=== PATIENT | female | born 1940 | race Caucasian/White ===

== ENCOUNTER → 2020-04-26 14:03 | Outpatient (BNVA) | payer MEDICARE, SELFPAY | PROVIDERS: PCP Internal Medicine; Referring Provider Internal Medicine; Visit Provider Nurse Practitioner Family | DX: R55 Syncope and collapse (principal); I44.7 Left bundle-branch block, unspecified; I10 Essential (primary) hypertension | CPT/HCPCS: 99214; Q3014 ==

== ENCOUNTER → 2020-05-19 10:10 | Outpatient (REF) | payer MEDICARE, SELFPAY ==
--- NOTE | 2020-05-19 10:20 | ECG_ITS ---
Hook-up date: 2020-05-19 10:44:00 Duration: 47:59:00 Test Indications: UNSPEC LBBB, SYNCOPE, HTN Medications: [id number] QRS complexes 8 Ventricular ectopics which represent <1 % of total QRS comp. 87 Supraventricular ectopics which represent <1 % of total QRS comp. * Paced QRS complexs which represent % of total QRS comp. VENTRICULAR ECTOPY 8 Isolated 0 Bigeminal Cycles 0 Couplets 0 Runs 0 Beats in Runs * Beats LONGEST at * BPM at :: -- * Beats FASTEST at * BPM at :: -- SUPRAVENTRICULAR ECTOPY 69 Isolated 2 Couplets 3 Runs 14 Beats in Runs 6 Beats LONGEST at 101 BPM at 23:37:23 2020-05-19 3 Beats FASTEST at 180 BPM at 08:39:15 2020-05-20 HEART RATES 46 MIN at 06:00:17 2020-05-21 68 AVG 138 MAX at 08:34:17 2020-05-20 LONGEST RR 1.4880 secs at 02:26:35 2020-05-20 S-T LEVELS Channel 1 - 128 mm at 10:44:00 2020-05-19 - 128 mm at 10:44:00 2020-05-19 Channel 2 - 128 mm at 10:44:00 2020-05-19 - 128 mm at 10:44:00 2020-05-19 Channel 3 - 128 mm at 03:00:31 -- - 128 mm at 03:00:31 Underlying rhythm is sinus; Average ventricular rate 68/min; range 46-138/min; Rare supraventricular ectopy with few brief runs; longest 6 beats; Rare and isolated ventricular ectopy; Patient did not report any symptoms in the diary Referred By: Dorota Joseph Overread By: KYREE ZIMMER
== END ==
LOC: HO.CARD 10:10
PROVIDERS: PCP Internal Medicine; Visit Provider Nurse Practitioner Family
DX: I10 Essential (primary) hypertension (principal); I44.7 Left bundle-branch block, unspecified; R55 Syncope and collapse
CPT/HCPCS: 93225; 93226

== ENCOUNTER 2020-05-23 08:53 | Outpatient (REF) | payer MEDICARE, SELFPAY ==
--- NOTE | 2020-05-23 08:58 | XR_ITS ---
EXAMINATION: XR HIP, RIGHT CLINICAL INFORMATION: Pain right hip. COMPARISON: Right hip 09/03/2019. TECHNIQUE: 2 views of the right hip. FINDINGS: There is a total right hip prosthesis with the prosthetic components in satisfactory alignment. The left hip joint space is maintained. SI joints are symmetrical. No visible bony abnormality. The soft tissues are normal. XR/XR hip RT w PEL1V IMPRESSION: Total right hip prosthesis in satisfactory alignment. No change from previous study 09/03/2019. There is no suspicion for prosthetic loosening either.
== END 2020-05-23 08:54 | disposition home or self-care (01) ==
LOC: HO.HOSX 08:53
PROVIDERS: PCP Internal Medicine; Referring Provider Internal Medicine; Visit Provider Orthopaedic Surgery
DX: M25.561 Pain in right knee (principal); M25.551 Pain in right hip; Z96.641 Presence of right artificial hip joint
CPT/HCPCS: 73502; 99212

== ENCOUNTER → 2020-06-05 09:46 | Outpatient (BNVA) | payer MEDICARE, SELFPAY | PROVIDERS: PCP Internal Medicine; Referring Provider Internal Medicine; Visit Provider Nurse Practitioner Family | DX: R55 Syncope and collapse (principal); I10 Essential (primary) hypertension; I44.7 Left bundle-branch block, unspecified; Z79.899 Other long term (current) drug therapy | CPT/HCPCS: 99212 ==

== ENCOUNTER → 2020-07-17 12:52 | Outpatient (REF) | payer MEDICARE, SELFPAY ==
--- NOTE | 2020-07-17 12:55 | HM_ITS ---
TEST PERFORMED: Cardiac event monitor. ENROLLMENT PERIOD: 07/17/2020 to 08/02/2020 - 16 days. REQUESTING PHYSICIAN: Dorota Joseph NP. INDICATION: Left bundle-branch block. FINDINGS: In the above monitoring period, the underlying rhythm was sinus, the base rate was 90/min. There were no episodes of tachycardia or bradycardia or any other arrhythmic findings during this time. Overall, the study is unremarkable. Rufus Mayfield MD HS/MODHeather / [id number]
== END ==
LOC: HO.CARD 12:52
PROVIDERS: Visit Provider Nurse Practitioner Family
DX: I44.7 Left bundle-branch block, unspecified (principal); R55 Syncope and collapse
CPT/HCPCS: 93270

== ENCOUNTER → 2020-08-28 09:26 | Outpatient (BNVA) | payer MEDICARE, SELFPAY | PROVIDERS: PCP Internal Medicine; Visit Provider Internal Medicine Cardiovascular Disease | DX: I95.1 Orthostatic hypotension (principal); I10 Essential (primary) hypertension | CPT/HCPCS: 99212 ==

== ENCOUNTER 2020-09-12 10:40 | Outpatient (REF) | payer MEDICARE, SELFPAY ==
[2020-09-12 11:40] LABS: MANUAL DIFF FLAG NO
[2020-09-12 12:07] LABS: Basophils Absolute Auto 0.1 X10*3/uL (0.0-0.2); Basophils Percent Auto 0.8 % (0-2); Eosinophils Absolute Auto 0.1 X10*3/uL (0.0-0.4); Eosinophils Percent Auto 1.7 % (0-4); Hematocrit 40.4 % (37-47); Hemoglobin 13.1 g/dl (12.0-16.0); Imm Gran Abs Auto 0.02 X10*3/uL (0.00-0.03); Imm Gran Pct Auto 0.3 % (0.0-0.4); Lymphocytes Absolute Auto 2.2 X10*3/uL (1.2-4.9); Lymphocytes Percent Auto 34.3 % (20-40); Mean Corpuscular HGB Conc 32.4 g/dl (31.0-35.0); Mean Corpuscular Hemoglobin 29.3 pg (27.0-33.0); Mean Corpuscular Volume 90.4 fL (80-98); Monocytes Absolute Auto 0.5 X10*3/uL (0.1-1.2); Monocytes Percent Auto 7.4 % (2-11); Neutrophils Absolute Auto 3.6 X10*3/uL (2.0-8.3); Neutrophils Percent Auto 55.5 % (45-73); Platelet Count 302 X10*3/uL (160-400); Red Blood Count 4.47 X10*6/uL (4.20-5.50); Red Cell Distribution Width 12.9 % (11.0-16.0); White Blood Count 6.5 X10*3/uL (4.8-10.8)
[2020-09-12 13:54] LABS: Estimated Average Glucose 108 mg/dL; Hemoglobin A1c % 5.4 %
[2020-09-12 14:08] LABS: Alanine Aminotransferase 24 U/L (0-31); Albumin Level 4.3 g/dL (3.5-5.0); Alkaline Phosphatase 76 U/L (39-117); Anion Gap 16 (12-20); Aspartate Amino Transferase 28 U/L (5-31); Bilirubin Total 0.6 mg/dL (0.0-1.0); Blood Urea Nitrogen 19 mg/dL (9-16); Calcium 9.1 mg/dL (8.4-10.2); Carbon Dioxide 24 mmol/L (22-29); Chloride 102 mmol/L (96-108); Cholesterol 164 mg/dL; Estimated Glomerular Filt Rate 53; Glucose Fasting 93 mg/dL (60-99); HDL Cholesterol 62 mg/dL; LDL Cholesterol Calculated 85 mg/dl; Potassium 4.5 mmol/L (3.3-5.1); Sodium 137 mmol/L (135-145); Total Protein 6.7 g/dL (6.5-8.0); Triglycerides 89 mg/dL
[2020-09-12 14:28] LABS: Vitamin D 25-OH Total 45.2 ng/mL (>30)
[2020-09-12 15:07] LABS: Reflex LDLD? No
== END 2020-09-12 10:41 | disposition home or self-care (01) ==
LOC: HO.LNP 10:40
PROVIDERS: Visit Provider Internal Medicine
DX: Z00.00 Encounter for general adult medical examination without abnormal findings (principal); E78.00 Pure hypercholesterolemia, unspecified; R73.03 Prediabetes; I10 Essential (primary) hypertension; E55.9 Vitamin D deficiency, unspecified
CPT/HCPCS: 80053; 80061; 82306; 83036; 84443; 85025

== ENCOUNTER 2020-09-19 10:32 | Outpatient (REF) | payer MEDICARE, SELFPAY ==
[2020-09-19 10:44] LABS: Glucose Urine UA NEG (NEG); Leukocyte Esterase Urine 1+ (NEG); Nitrite Urine NEG (NEG); PH 6.5 (5.0-8.0); Specific Gravity - Urine 1.015 (1.005-1.025); Urine Blood NEG (NEG); Urine Ketones NEG (NEG); Urine Protein NEG (NEG-TRACE)
[2020-09-19 10:57] LABS: Appearance Urine CLEAR; Color Urine YELLOW
[2020-09-19 11:03] LABS: RBC Urine 0 /HPF (0)
[2020-09-19 11:24] LABS: Creatinine Urine 67.83 mg/dL; Microalbum/Creatinine Ratio Ur 20.6 ug/mg cr
== END 2020-09-19 10:33 | disposition home or self-care (01) ==
LOC: HO.LNP 10:32
PROVIDERS: PCP Internal Medicine; Visit Provider Internal Medicine
DX: R73.03 Prediabetes (principal)
CPT/HCPCS: 81001; 82043

== ENCOUNTER → 2020-10-23 13:53 | Outpatient (BNVA) | payer MEDICARE, SELFPAY | PROVIDERS: PCP Internal Medicine; Visit Provider Orthopaedic Surgery | DX: M79.89 Other specified soft tissue disorders (principal) | CPT/HCPCS: 99202 ==

== ENCOUNTER 2020-10-25 13:19 | Outpatient (REF) | payer MEDICARE, SELFPAY ==
--- NOTE | ~2020-10-25 | MR_ITS ---
EXAMINATION: MR HAND WITHOUT AND WITH CONTRAST, LEFT CLINICAL INFORMATION: Soft tissue disorder. Patient reports bump on anterior hand 1 month. No trauma. COMPARISON: None TECHNIQUE: Imaging in a high-field magnet without and with contrast. 5.5 mL Gadavist. FINDINGS: Soft tissue marker positioned on the palmar aspect of the hand at the level of the 3rd MCP joint. There is prominent edema, fluid and associated enhancement surrounding the 3rd flexor tendons. This extends from the level of approximately the proximal metacarpal shaft, distally to the level of the 3rd DIP joint. The findings are compatible with prominent tenosynovitis and peritendinitis. The flexor tendons appear intact. Remainder of the visualized tendons appear intact and unremarkable. No evidence of acute osseous abnormality. No apparent significant arthropathy seen. MR/MR hand LT wo/w con IMPRESSION: 1. Prominent peritendinitis and tenosynovitis of the 3rd flexor tendons extending from the level of the proximal metacarpal to the distal aspect of the finger. These tendons appear intact. 2. No acute osseous abnormality.
== END 2020-10-25 13:20 | disposition home or self-care (01) ==
LOC: HO.MRI 13:19
PROVIDERS: Visit Provider Orthopaedic Surgery
DX: M79.89 Other specified soft tissue disorders (principal)
CPT/HCPCS: 73220; A9585

== ENCOUNTER → 2020-10-31 08:38 | Outpatient (BNVA) | payer MEDICARE, SELFPAY | PROVIDERS: PCP Internal Medicine; Visit Provider Orthopaedic Surgery | DX: M79.89 Other specified soft tissue disorders (principal) | CPT/HCPCS: 99202 ==

== ENCOUNTER 2020-11-23 08:21 | Day surgery (SDC) | payer MEDICARE, SELFPAY ==
[2020-11-08 12:54] VITALS: BP 166/74; PULSE 67; RESP 20; O2SAT 100
--- NOTE | 2020-11-22 09:04 | HO.ANESPROP2 ---
Documented by User: Ashley Arias 11/22/20 09:33 HPI - Anesthesia Eval Consult details Narrative: Seen by Dr Gaffney in PAT 11/08/20 80yo F for Left Excisional Biopsy of Middle Finger Mass with Flexor Tenosyovectomy Recently with orthostasis. Seen by cardiology. HANK wnl. HTN meds adjusted. h/o postop delerium/confusion x 5 days after total hip 2019 ON LICENSE OF [facility] Active Problems Active Problems: All Active Problems (Updated 11/08/20 @ 13:09 by Yanci Denson) Orthostasis (Acute) Mass of soft tissue of left upper extremity (Acute) Osteoarthritis (Acute) LBBB (left bundle branch block) (Acute) Syncope (Acute) HTN (hypertension) (Acute) Past Medical History Medical History Arthritis COVID-19 vaccine administered Dementia History of anesthesia complications HTN (hypertension) LBBB (left bundle branch block) Osteoarthritis Pre-diabetes Syncope TIA (transient ischemic attack) Family History Family History Father No problems noted. Mother Brain tumor Sister No problems noted. Daughter No problems noted. Son No problems noted. Son No problems noted. Surgical History Surgical History History of appendectomy History of esophagogastroduodenoscopy (EGD) History of hysterectomy History of tonsillectomy and adenoidectomy History of total right hip arthroplasty Hx of cataract surgery Hx of colonoscopy Social History Social History Are you a primary primary care nurse practitioner to a significant other at home: No Do you presently have visiting nurse or other home services: No Alcohol intake: never Smoking Status: Never smoker Use of substances other than those prescribed or required for medical reasons: No Have you been hit, kicked, punched, or otherwise hurt by someone within the past year? If so, by whom?: No Advance Directives Information Provided: No Recently lost weight without trying: No Nutrition Risks: Surgical patient >75years Poor oral hygiene: No Current occupational status: retired 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 Meds Allergies Allergy/AdvReac Type Severity Reaction Status Date / Time oxycodone Allergy Intermediate Confusion Verified 11/08/20 13:17 Home Medications Medication Instructions Recorded Confirmed Last Taken Type atorvastatin 40 mg tablet 40 mg PO BEDTIME 04/26/20 11/08/20 Unknown History lisinopril 5 mg tablet 5 mg PO BEDTIME tab 04/26/20 11/08/20 Unknown History multivitamin 1 tab PO DAILY 04/26/20 11/08/20 Unknown History aspirin 81 mg chewable tablet 81 mg PO BEDTIME 10/23/20 11/08/20 Unknown History Exam Exam Date and Time: November 22, 2020903 Height,Weight and Vital Signs: Height 5 ft 6 in Weight 56.245 kg Last Vital Signs Pulse 67 11/08/20 12:54 Resp 20 11/08/20 12:54 BP 166/74 H 11/08/20 12:54 Pulse Ox 100 11/08/20 12:54 Pertinent Lab Results Pertinent Lab Results: Laboratory Tests 09/12/20 09/12/20 07:30 07:30 WBC 6.5 Hgb 13.1 Hct 40.4 Plt Count 302 Sodium 137 Potassium 4.5 Chloride 102 Carbon Dioxide 24 BUN 19 H Creatinine 1.02 Narrative Narrative: [facility] 05/2020 Underlying rhythm is sinus; Average ventricular rate 68/min; range 46-138/min; Rare supraventricular ectopy with few brief runs; longest 6 beats; Rare and isolated ventricular ectopy; Patient did not report any symptoms in the diary EKG 07/2019 NSR @ 66 LAD LBBB Assessment and Plan Assessment Anesthesia Assessment: Chart Reviewed Documented by User: Nicky Baez 11/23/20 09:12 ON LICENSE OF [facility] Past Medical History Medical History Arthritis COVID-19 vaccine administered Dementia History of anesthesia complications HTN (hypertension) LBBB (left bundle branch block) Osteoarthritis Pre-diabetes Syncope TIA (transient ischemic attack) Family History Family History Father No problems noted. Mother Brain tumor Sister No problems noted. Daughter No problems noted. Son No problems noted. Son No problems noted. Surgical History Surgical History History of appendectomy History of esophagogastroduodenoscopy (EGD) History of hysterectomy History of tonsillectomy and adenoidectomy History of total right hip arthroplasty Hx of cataract surgery Hx of colonoscopy Social History Social History Are you a primary primary care nurse practitioner to a significant other at home: No Do you presently have visiting nurse or other home services: No Alcohol intake: never Smoking Status: Never smoker Use of substances other than those prescribed or required for medical reasons: No Have you been hit, kicked, punched, or otherwise hurt by someone within the past year? If so, by whom?: No Advance Directives Information Provided: No Recently lost weight without trying: No Nutrition Risks: Surgical patient >75years Poor oral hygiene: No Current occupational status: retired 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 Meds Allergies Allergy/AdvReac Type Severity Reaction Status Date / Time oxycodone Allergy Intermediate Confusion Verified 11/08/20 13:17 Home Medications Medication Instructions Recorded Confirmed Last Taken Type atorvastatin 40 mg tablet 40 mg PO BEDTIME 04/26/20 11/08/20 Unknown History lisinopril 5 mg tablet 5 mg PO BEDTIME tab 04/26/20 11/08/20 Unknown History multivitamin 1 tab PO DAILY 04/26/20 11/08/20 Unknown History aspirin 81 mg chewable tablet 81 mg PO BEDTIME 10/23/20 11/08/20 Unknown History Exam Airway Mallampati Class: II TM Dist: >3cm Neck ROM: Full Heart: RRR Lungs: CTA Assessment and Plan Assessment Anesthesia Assessment: Anesthesia Plan Discussed and Chart Reviewed Final Anesthetic Review NPO: Yes ASA Class: III Final Preanesthetic Review: Meds/Allgs Chart Reviewed, Consent Obtained/Reviewed and Anes Risks/Benef Reviewed Patient Risk: Intermediate Procedure Risk: Low Anesthetic Plan Anesthetic Plan: MAC: Disposition: Standard PACU
[2020-11-23] VITALS (7 sets, daily range): BP systolic 109–160; BP diastolic 54–67; PULSE 59–74; RESP 16–20; TEMP 36.3–36.6; O2SAT 97–100
[2020-11-23] MEDS: Lactated Ringers 1,000 ML 100 ML IVCONT (09:26)
--- NOTE | 2020-11-23 09:29 | PC.NURSE ---
Orthopedic surgeons note from 10/31/2020 states that patient has dementia. Daughter Anusha in waiting room with patient and stated that her mother does have memory loss that comes and goes. Patient alert to self, person, place. Patient and daughter unaware if HCP has ever been filled out. Anesthesiologist Dr. Baez notified of this and came to bedside with patient and daughter. Dr. Chiu also present at bedside. Patient is however lives in [facility] and is unable to consent for patient. Dr. Baez and Dr. Chiu agreed that daughter Anusha, main senior budget analyst of patient, could cosign all consents with patient. Patient and Anusha agree to this. Surgery to proceed.
--- NOTE | 2020-11-23 10:41 | MHC.SHP ---
Pre-Procedural Eval Section B Chief Complaint: soft tissue disorder Allergies: Allergies Allergy/AdvReac Type Severity Reaction Status Date / Time oxycodone Allergy Intermediate Confusion Verified 11/08/20 13:17 Plan I have reviewed the history and physical and performed a pertinent physical examination on my patient. No changes have occurred unless specified.
--- NOTE | 2020-11-23 10:41 | W.PM.OPN ---
Operative Note Operative Note Date of Service: 11/23/20 Narrative: Operative Note Narrative: Preop diagnosis: 1. Left hand and middle finger volar soft tissue mass Postop diagnosis: Same Procedure: 1. Left hand mass excisional biopsy 2. Left middle finger flexor tenosynovectomy Surgeon: Faye Canela MD Anesthesia: Mac plus regional block Findings: carr/staples soft tissue mass about FDS/FDP tendons within the expanded flexor tendon sheath along the 3rd metacarpal out to the DIP joint. FDP/FDS tendons intact. Implants: None Tourniquet time: 28 minutes EBL: 5.0 ml Specimen: soft tissue mass sent for gs, A&A, AFB, fungus and histo-pathology Drains: None Complications: None Disposition: Brought to the recovery room in stable condition Plan: F/U next week for a wound check to allow for to work on finger ROM Follow-up in 10-14 days for wound check and suture removal Check cultures and pathology Indications: The patient is 72 years old with a mass in the palm of the left hand extending into the volar aspect of the middle finger . The risks and benefits of operative treatment, including but not limited to risk of damage to blood vessels, nerves, tendons, infection, recurrence, persistent pain or numbness, incomplete resolution of preoperative symptoms, or need for further surgery were discussed with the patient and they wished to proceed with surgery. Procedure: Once consent was obtained patient was brought back to the operating suite and placed in the operating table in a supine position. A tourniquet was applied to the proximal aspect of the left upper extremity and the limb was prepped and draped in a standard surgical fashion. The limb was elevated exsanguinated with Esmarch bandage and the tourniquet inflated to 250 mm of mercury for a total tourniquet time of 28 minutes. A [place] is a type incision was made over the volar aspect of the patient's left middle finger extending into the palm. The incision was made through the skin to the subcutaneous tissues using a 15. Blade. Careful dissection was made down to the level of the flexor tendon sheath with care being taken to protect the neurovascular structures. The flexor season was noted to be bulging in the palm. The a-1 jb and flexor tendon sheath were opened proximal to the A2 jb to about the mid palmar crease. There was a tannish singh soft tissue mass surrounding the flexor tendons within the flexor tendon sheath. I was able to carefully dissected free from the FDS and FDP tendons and withdraw the majority of the mass from this area and the more proximal aspect of the flexor tendon sheath. I also opened up the A3 jb over the PIP joint after making a Trev is incision over the middle phalanx and part of the proximal phalanx. There were small amounts of carr, similar material in this area. These were carefully debrided using a small rongeur. The FDP and FDS tendons appear to be in good condition. The specimens were sent for Gram stain, aerobic anaerobic, AFB and fungal cultures. Portion of the material was also sent for histopathology. At this point the tourniquet was deflated and hemostasis obtained with a brief period of local pressure and bipolar electrocautery. The wound was copiously irrigated with normal saline. The the skin edges were reapproximated with 5-0 nylon suture. The wound was infiltrated with some core% plain Marcaine for postop pain control and a sterile dressing was applied. . The patient appears to have tolerated the procedure well and with no complications. All digits were well vascularized conclusion of the case.
== END 2020-11-23 13:50 ==
LOC: HO.SSS 08:21
PROVIDERS: PCP Internal Medicine; Visit Provider Orthopaedic Surgery
PROC: (CPT 26180; principal; 2020-11-23 09:50)
DX: R22.32 Localized swelling, mass and lump, left upper limb (principal); F03.90 Unspecified dementia, unspecified severity, without behavioral disturbance, psychotic disturbance, mood disturbance, and anxiety; I10 Essential (primary) hypertension; R73.03 Prediabetes
CPT/HCPCS: 26180; 87071; 87073; 87101; 87116; 87205; 88307; 88312; 88313; J0131; J2250; J2405; J3010

== ENCOUNTER → 2020-11-28 12:54 | Outpatient (BNVA) | payer MEDICARE, SELFPAY | PROVIDERS: PCP Internal Medicine; Visit Provider Orthopaedic Surgery | DX: M79.89 Other specified soft tissue disorders (principal) | CPT/HCPCS: 99212 ==

== ENCOUNTER → 2020-12-06 09:12 | Outpatient (BNVA) | payer MEDICARE, SELFPAY | PROVIDERS: PCP Internal Medicine; Visit Provider Orthopaedic Surgery | DX: M79.89 Other specified soft tissue disorders (principal); M19.90 Unspecified osteoarthritis, unspecified site | CPT/HCPCS: 99212 ==

== ENCOUNTER → 2021-01-31 09:28 | Outpatient (BNVA) | payer MEDICARE, SELFPAY | PROVIDERS: Visit Provider Orthopaedic Surgery | DX: M54.16 Radiculopathy, lumbar region (principal); Z96.641 Presence of right artificial hip joint | CPT/HCPCS: 99212 ==

== ENCOUNTER 2021-03-23 10:36 | Outpatient (REF) | payer MEDICARE, SELFPAY ==
[2021-03-23 11:58] LABS: Alanine Aminotransferase 17 U/L (0-31); Albumin Level 4.4 g/dL (3.5-5.0); Alkaline Phosphatase 80 U/L (39-117); Aspartate Amino Transferase 26 U/L (5-31); Bilirubin Direct 0.2 mg/dL (0.0-0.5); Bilirubin Total 0.5 mg/dL (0.0-1.0); Cholesterol 149 mg/dL; Glucose Fasting 119 mg/dL (60-99); HDL Cholesterol 57 mg/dL; LDL Cholesterol Calculated 75 mg/dl; Total Protein 6.8 g/dL (6.5-8.0); Triglycerides 89 mg/dL
[2021-03-23 12:04] LABS: Estimated Average Glucose 111 mg/dL; Hemoglobin A1c % 5.5 %
[2021-03-23 13:29] LABS: Reflex LDLD? No
== END 2021-03-23 10:37 | disposition home or self-care (01) ==
LOC: HO.LNP 10:36
PROVIDERS: Visit Provider Internal Medicine
DX: R73.03 Prediabetes (principal); E78.00 Pure hypercholesterolemia, unspecified
CPT/HCPCS: 80061; 80076; 82947; 83036

== ENCOUNTER 2021-04-25 10:05 | Outpatient (REF) | payer MEDICARE, SELFPAY ==
--- NOTE | ~2021-04-25 | MM_ITS ---
EXAMINATION: MM SCREENING DIGITAL BREAST TOMOSYNTHESIS, BILATERAL CLINICAL INFORMATION: Screening. Asymptomatic. The lifetime risk of breast cancer based on the Tyrer-Cuzick Model is under 2%. COMPARISON: Mammography: 04/12/2020, 10/28/2018, 05/01/2017 TECHNIQUE: Digital breast tomosynthesis is performed in both the craniocaudal and mediolateral oblique views along with computer-aided detection (CAD). Synthesized 2D images are generated from the tomosynthesis. FINDINGS: There are scattered areas of fibroglandular density (ACR BI-RADS breast composition Category b). Parenchymal pattern is similar to prior studies. There is small benign oval asymmetry medial right breast similar to prior exams. No developing density. 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 The axilla and skin contours are unremarkable. No significant changes from prior exams. MM/MM tomosynthesis screening BI IMPRESSION: No mammographic evidence of malignancy. ASSESSMENT: BI-RADS 2: Benign RECOMMENDATION: Routine annual mammography screening. This patient's information was entered into a reminder system with a target due date for their next mammogram.
--- NOTE | ~2021-04-25 | MM_ITS ---
EXAMINATION: BONE DENSITOMETRY CLINICAL INDICATION: Menopause. COMPARISON: Previous BD dated 10/28/2018 and baseline BD dated 09/12/2011. TECHNIQUE: Using a [employer] DXA System (software version: 13.1) manufactured by [employer], dual-energy x-ray absorptiometry was performed of the lumbar spine and left hip. The images are of good technical quality. Summary results are attached. FINDINGS: AP SPINE L1-L2 (excluding L3 and L4): The data of L1-L4 has been changed to exclude the L3 and L4 vertebral bodies, because degenerative changes at these levels may cause overestimation of lumbar spine density. Current: BMD 0.920 g/cm2, Z-score 0.1, T-score -2.0, osteopenia, 3.2% decrease from previous, 6.4% decrease from baseline (<5% change is not significant). Prior: BMD 0.950 g/cm2. Baseline: BMD 0.983 g/cm2. LEFT FEMUR, NECK: Current: BMD 0.719 g/cm2, Z-score 0.0, T-score -2.3, osteopenia. Prior: BMD 0.745 g/cm2. Baseline: BMD 0.787 g/cm2. LEFT FEMUR, TOTAL: Current: BMD 0.718 g/cm2, Z-score -0.2, T-score -2.3, osteopenia, 5.5% decrease from previous, 10.1% decrease from baseline (<5% change is not significant). Prior: BMD 0.760 g/cm2. Baseline: BMD 0.799 g/cm2. IDENTIFIED RISK FACTORS: Low calcium intake, glucocorticoids (chronic), menopause, hysterectomy, bilateral oophorectomy. HISTORY OF FRACTURE: None listed. MEDICATIONS: None listed. MM/XR DEXA axial skeleton IMPRESSION: 1. DIAGNOSIS: Osteopenia based on the lowest T-score value of -2.3 in the femoral neck and total femur applying World Health Organization criteria. 2. 10-YEAR FRACTURE RISK PREDICTION, FRAX: Major osteoporotic fracture (clinical spine, forearm, hip or shoulder) 22.5%. Hip fracture 8.6%. 3. Treatment Recommendations: NOF guidelines recommend consideration for treatment in postmenopausal women and men age 50 and older presenting with the following: -A hip or vertebral (clinical or morphometric) fracture. -T-score less than or equal to -2.5 at the femoral neck or spine after appropriate evaluation to exclude secondary causes. -Low bone mass at the hip or spine and a 10-year fracture probability by FRAX of greater than or equal to 3% for hip fracture or greater than or equal to 20% for major osteoporotic fracture based on the [place] adapted WHO algorithm. 4. Other Recommendations: All treatment decisions require clinical judgment and consideration of individual patient factors, including patient preferences, comorbidities, previous drug use, risk factors not captured in the FRAX model (e.g. frailty, falls, vitamin D deficiency, increased bone turnover, interval significant decline in bone density) and possible under or overestimation of fracture risk by FRAX. Additional medical evaluation for secondary cause of low bone mineral density may be appropriate. FUTURE SCAN RECOMMENDATION: People with diagnosed cases of osteoporosis or at high risk for fracture should have regular bone mineral density tests. For patients eligible for Medicare, routine testing is allowed once every 2 years. The testing frequency can be increased to one year for patients who have rapidly progressing disease, those who are receiving or discontinuing medical therapy to restore bone mass, or have additional risk factors.
== END 2021-04-25 10:06 | disposition home or self-care (01) ==
LOC: HO.MAMMO 10:05
PROVIDERS: Visit Provider Internal Medicine
DX: Z12.31 Encounter for screening mammogram for malignant neoplasm of breast (principal); Z78.0 Asymptomatic menopausal state
CPT/HCPCS: 77063; 77067; 77080

== ENCOUNTER → 2021-08-15 08:41 | Outpatient (BNVA) | payer MEDICARE, SELFPAY | PROVIDERS: Visit Provider Orthopaedic Surgery | DX: M19.041 Primary osteoarthritis, right hand (principal); M19.042 Primary osteoarthritis, left hand | CPT/HCPCS: 99212 ==

== ENCOUNTER 2021-10-26 09:37 | Outpatient (REF) | payer MEDICARE, SELFPAY ==
[2021-10-26 10:02] LABS: COVID-19 Test Negative (Negative); IDNOW Serial# 16C4AD1C
== END 2021-10-26 09:38 | disposition home or self-care (01) ==
LOC: HO.LAB 09:37
PROVIDERS: Visit Provider Internal Medicine
DX: Z20.822 Contact with and (suspected) exposure to COVID-19 (principal)
CPT/HCPCS: 87635; C9803

== ENCOUNTER 2021-11-13 10:45 | Outpatient (REF) | payer MEDICARE, SELFPAY ==
[2021-11-13 10:50] LABS: MANUAL DIFF FLAG NO
[2021-11-13 11:25] LABS: Basophils Percent Auto 0.7 % (0-2); Eosinophils Absolute Auto 0.2 X10*3/uL (0.0-0.4); Eosinophils Percent Auto 3.3 % (0-4); Hematocrit 38.8 % (37.0-47.0); Hemoglobin 12.1 g/dl (12.0-16.0); Imm Gran Abs Auto 0.01 X10*3/uL (0.00-0.03); Imm Gran Pct Auto 0.2 % (0.0-0.4); Lymphocytes Percent Auto 36.5 % (20-40); Mean Corpuscular HGB Conc 31.2 g/dl (31.0-35.0); Mean Corpuscular Hemoglobin 27.9 pg (27.0-33.0); Mean Corpuscular Volume 89.4 fL (80.0-98.0); Mean Platelet Volume 10.8 fL (9.4-12.3); Monocytes Absolute Auto 0.5 X10*3/uL (0.1-1.2); Monocytes Percent Auto 8.6 % (2-11); Neutrophils Absolute Auto 2.8 x10*3/uL (2.0-8.3); Neutrophils Percent Auto 50.7 % (45-73); Platelet Count 261 X10*3/uL (160-400); Red Blood Count 4.34 X10*6/uL (4.20-5.50); Red Cell Distribution Width 13.9 % (11.0-16.0); White Blood Count 5.5 X10*3/uL (4.8-10.8)
[2021-11-13 11:26] LABS: Appearance Urine CLEAR; Color Urine YELLOW; Glucose Urine UA NEG (NEG); Leukocyte Esterase Urine 2+ (NEG); Nitrite Urine NEG (NEG); Urine Blood NEG (NEG); Urine Ketones NEG (NEG); Urine Protein NEG (NEG-TRACE)
[2021-11-13 11:32] LABS: Alanine Aminotransferase 14 U/L (0-31); Alkaline Phosphatase 70 U/L (39-117); Anion Gap 10 (12-20); Aspartate Amino Transferase 22 U/L (5-31); Bilirubin Total 0.6 mg/dL (0.0-1.0); Blood Urea Nitrogen 22 mg/dL (9-16); Calcium 9.5 mg/dL (8.4-10.2); Carbon Dioxide 28 mmol/L (22-29); Chloride 105 mmol/L (96-108); Cholesterol 155 mg/dL; Estimated Glomerular Filt Rate 45; Glucose Fasting 79 mg/dL (60-99); HDL Cholesterol 51 mg/dL; Iron 82 mcg/dL (30-160); LDL Cholesterol Calculated 85 mg/dl; Percent Iron Saturation 27 % (15-50); Potassium 4.8 mmol/L (3.3-5.1); Sodium 138 mmol/L (135-145); Total Iron Binding Capacity 304 mcg/dL (228-428); Total Protein 6.6 g/dL (6.5-8.0); Triglycerides 95 mg/dL; Unsaturated Iron Binding 222 ug/dL
[2021-11-13 11:43] LABS: Estimated Average Glucose 114 mg/dL; Hemoglobin A1c % 5.6 %
[2021-11-13 11:51] LABS: Vitamin D 25-OH Total 42.3 ng/mL (>30)
[2021-11-13 11:59] LABS: Creatinine Urine 70.34 mg/dL; Microalbum/Creatinine Ratio Ur 95.2 ug/mg cr
[2021-11-13 13:30] LABS: Squamous Epithelial Cell Urine TRACE /LPF
[2021-11-13 13:31] LABS: WBC Urine 0-2 /HPF (0-4)
[2021-11-13 13:32] LABS: Renal Epithelial Cells Urine TRACE /LPF
[2021-11-13 13:33] LABS: RBC Urine 0 /HPF (0)
== END 2021-11-13 10:46 | disposition home or self-care (01) ==
LOC: HO.LNP 10:45
PROVIDERS: Visit Provider Internal Medicine
DX: Z00.00 Encounter for general adult medical examination without abnormal findings (principal); R73.03 Prediabetes; I10 Essential (primary) hypertension; E78.00 Pure hypercholesterolemia, unspecified; E55.9 Vitamin D deficiency, unspecified; D50.8 Other iron deficiency anemias
CPT/HCPCS: 80053; 80061; 81001; 81003; 82043; 82306; 83036; 83540; 85025

== ENCOUNTER 2022-05-24 10:27 | Outpatient (REF) | payer MEDICARE, SELFPAY ==
[2022-05-24 11:21] LABS: Alanine Aminotransferase 21 U/L (0-31); Albumin Level 4.3 g/dL (3.5-5.0); Alkaline Phosphatase 73 U/L (39-117); Aspartate Amino Transferase 27 U/L (5-31); Bilirubin Direct 0.2 mg/dL (0.0-0.5); Bilirubin Total 0.6 mg/dL (0.0-1.0); Cholesterol 161 mg/dL; Glucose Fasting 87 mg/dL (60-99); HDL Cholesterol 60 mg/dL; LDL Cholesterol Calculated 85 mg/dl; Total Protein 6.8 g/dL (6.5-8.0); Triglycerides 80 mg/dL
[2022-05-24 11:30] LABS: Estimated Average Glucose 114 mg/dL; Hemoglobin A1c % 5.6 %
[2022-05-24 11:53] LABS: Reflex LDLD? No
== END 2022-05-24 10:28 | disposition home or self-care (01) ==
LOC: HO.LNP 10:27
PROVIDERS: Visit Provider Internal Medicine
DX: R73.03 Prediabetes (principal); E78.00 Pure hypercholesterolemia, unspecified
CPT/HCPCS: 80061; 80076; 82947; 83036

== ENCOUNTER 2022-06-17 13:01 | Outpatient (REF) | payer SELFPAY ==
--- NOTE | ~2022-06-17 | XR_ITS ---
EXAMINATION: XR PELVIS CLINICAL INFORMATION: Pain COMPARISON: Previous x-ray May 2020 TECHNIQUE: AP view of the pelvis. FINDINGS: There is a right hip replacement in satisfactory position. No fracture, dislocation or x-ray evidence of loosening. There is moderate arthritis at the left hip joint with joint space narrowing and osteophyte formation. Bones of the pelvis are unremarkable. There are degenerative changes of the lumbar spine. Soft tissues are unremarkable. XR/XR pelvis 1-2V IMPRESSION: Satisfactory appearance of right hip replacement.
== END 2022-06-17 13:02 | disposition home or self-care (01) ==
LOC: HO.HOSX 13:01
PROVIDERS: Visit Provider Orthopaedic Surgery
DX: M25.551 Pain in right hip (principal); M79.661 Pain in right lower leg; Z96.641 Presence of right artificial hip joint
CPT/HCPCS: 72170; 99212

== ENCOUNTER 2022-11-19 11:58 | Outpatient (REF) | payer MEDICARE, MEDICAID, SELFPAY ==
[2022-11-19 12:03] LABS: MANUAL DIFF FLAG NO
[2022-11-19 12:19] LABS: Basophils Absolute Auto 0.1 X10*3/uL (0.0-0.2); Basophils Percent Auto 0.9 % (0-2); Eosinophils Absolute Auto 0.1 X10*3/uL (0.0-0.4); Eosinophils Percent Auto 1.8 % (0-4); Hematocrit 41.5 % (37.0-47.0); Hemoglobin 13.2 g/dl (12.0-16.0); Imm Gran Abs Auto 0.02 X10*3/uL (0.00-0.03); Imm Gran Pct Auto 0.3 % (0.0-0.4); Lymphocytes Absolute Auto 2.6 X10*3/uL (1.2-4.9); Mean Corpuscular HGB Conc 31.8 g/dl (31.0-35.0); Mean Corpuscular Hemoglobin 28.7 pg (27.0-33.0); Mean Corpuscular Volume 90.2 fL (80.0-98.0); Mean Platelet Volume 11.6 fL (9.4-12.3); Monocytes Absolute Auto 0.5 X10*3/uL (0.1-1.2); Monocytes Percent Auto 7.8 % (2-11); Neutrophils Absolute Auto 3.2 x10*3/uL (2.0-8.3); Neutrophils Percent Auto 49.2 % (45-73); Platelet Count 240 X10*3/uL (160-400); Red Cell Distribution Width 13.7 % (11.0-16.0); White Blood Count 6.5 X10*3/uL (4.8-10.8)
[2022-11-19 12:25] LABS: Appearance Urine Clear; Color Urine Yellow; Glucose Urine UA Negative (Negative); Leukocyte Esterase Urine Large (3+) (Negative); Nitrite Urine Negative (Negative); UMIC TRIGGER UACC YES; Urine Blood Negative (Negative); Urine Ketones Negative (Negative); Urine Protein Negative (Neg-Trace)
[2022-11-19 12:31] LABS: Bacteria Urine None Seen (None Seen); Hyaline Casts Urine 0-2 /LPF (0-2); RBC Urine 0-2 /HPF (0-2); Squamous Epithelial Cell Urine 0-2 /HPF (0-2); UACC Culture Trigger YES
[2022-11-19 12:35] LABS: Estimated Average Glucose 114 mg/dL; Hemoglobin A1c % 5.6 %
[2022-11-19 12:56] LABS: Alanine Aminotransferase 18 U/L (0-31); Albumin Level 4.2 g/dL (3.5-5.0); Alkaline Phosphatase 71 U/L (39-117); Anion Gap 12 (12-20); Aspartate Amino Transferase 27 U/L (5-31); Bilirubin Total 0.8 mg/dL (0.0-1.0); Blood Urea Nitrogen 23 mg/dL (9-16); Calcium 9.6 mg/dL (8.4-10.2); Carbon Dioxide 28 mmol/L (22-29); Chloride 105 mmol/L (96-108); Cholesterol 167 mg/dL; Estimated Glomerular Filt Rate 59; Glucose Fasting 82 mg/dL (60-99); HDL Cholesterol 57 mg/dL; Iron 108 mcg/dL (30-160); LDL Cholesterol Calculated 95 mg/dl; Percent Iron Saturation 38 % (15-50); Potassium 4.6 mmol/L (3.3-5.1); Sodium 140 mmol/L (135-145); Total Iron Binding Capacity 283 mcg/dL (228-428); Total Protein 6.6 g/dL (6.5-8.0); Triglycerides 77 mg/dL; Unsaturated Iron Binding 175 ug/dL
[2022-11-19 13:09] LABS: Creatinine Urine 52.59 mg/dL
== END 2022-11-19 11:59 | disposition home or self-care (01) ==
LOC: HO.LNP 11:58
PROVIDERS: Visit Provider Internal Medicine
DX: R73.03 Prediabetes (principal); E55.9 Vitamin D deficiency, unspecified; E78.00 Pure hypercholesterolemia, unspecified; D50.8 Other iron deficiency anemias; I10 Essential (primary) hypertension
CPT/HCPCS: 80053; 80061; 81001; 82043; 82306; 83036; 83540; 85025; 87086

== ENCOUNTER 2023-06-05 11:24 | Emergency (ER) | payer MEDICARE, SELFPAY ==
[2023-06-05] VITALS (8 sets, daily range): BP systolic 130–205; BP diastolic 57–95; PULSE 67–84; RESP 14–18; TEMP 36.6–36.8; O2SAT 94–99; BMI 20.1
--- NOTE | 2023-06-05 | ECG_ITS ---
Test Reason : dizziness Blood Pressure : / mmHG Vent. Rate : 065 BPM Atrial Rate : 065 BPM P-R Int : 130 ms QRS Dur : 114 ms QT Int : 398 ms P-R-T Axes : 079 -58 098 degrees QTc Int : 413 ms Normal sinus rhythm Left anterior fascicular block Intra-ventricular conduction delay Abnormal ECG When compared with ECG of 11-AUG-2019 09:52, No significant changes seen Referred By: Generic ED Physician Electronically Signed By:ANGEL SERNA MD
--- OUTSIDE RECORDS SUMMARY | 2023-06-05 12:07 | XMS_ITS | Continuity of Care Document ---
Author Name Unknown Organization [facility] Address [address] [place] [id number] Care Team Providers Care Skein Bander Name Role Phone Cole Becker MD Primary Care Physician [id number] Encounter [facility] Date(s): 01/20/20 - 01/20/[address] [address]- [facility] Discharge Disposition: A-D/C Home Attending Physician: Art Khan MD Admitting Physician: Art Khan MD Referring Physician: Not on Staff, Referring MD Allergies, Adverse Reactions, Alerts Substance Reaction Severity Status NKA Active Medications aspirin 81 mg oral tablet 1 tablet = 81 mg, By Mouth, Daily, 0 Refills, Maintenance, 01/20/20 14:08:00 EDT Start Date: 01/20/20 Status: Ordered atorvastatin 10 mg oral tablet 1 tablet = 10 mg, By Mouth, Daily, 0 Refills, Maintenance, 01/20/20 14:09:00 EDT Start Date: 01/20/20 Status: Ordered lisinopril 10 mg oral tablet 1 tablet = 10 mg, By Mouth, Daily, # 30 tablet, 0 Refills, Maintenance, Tablet Start Date: 11/11/09 Status: Ordered Vital Signs Most recent to oldest [Reference Range]: 1 2 Height 166 cm (01/20/20 2:05 PM) Weight 58 kg (01/20/20 2:05 PM) Oxygen Saturation [94-100 %] 98 % (01/20/20 4:30 PM) 96 % (01/20/20 2:05 PM) Pulse Rate [55-90 bpm] 79 bpm (01/20/20 4:30 PM) 83 bpm (01/20/20 2:05 PM) Blood Pressure [90-138/55-84 mm Hg] 157/ 71mm Hg *H* (01/20/20 4:30 PM) 152/79mm Hg *H* (01/20/20 2:05 PM) Respiratory Rate [16-30 br/min] 16 br/mi n (01/20/20 4:30 PM) 18 br/min (01/20/20 2:05 PM) Temperature [96.8-100.4 DegF] 98.0 DegF (01/20/20 2:05 PM) Mode of Delivery (Oxygen) Room air (01/20/20 4:30 PM) Room air (01/20/20 2:05 PM) Temperature Route Temporal (01/20/20 2:05 PM) Dry Weight 58 kg (01/20/20 2:05 PM) Weight Obtained Via Patient/family state d (01/20/20 2:05 PM) Dry Weight Obtained Via Patient/family s tated (01/20/20 2:05 PM) Social History Social History Type Response Smoking Status Never (less than 100 in lifetime) entered on: 01/20/20 Sex
--- OUTSIDE RECORDS SUMMARY | 2023-06-05 12:07 | XMS_ITS | Patient Health Record ---
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 Complete Blood Count Auto Di ff Reviewed date:11/19/2022 12:45:20 PM Interpretation: Performing Lab:[facility], [address] [place] [phone] Notes/Report: White Blood Count 6.5 4.8-10.8 X10*3/uL Red Blood Count 4.60 4.20-5.50 X10*6/uL Hemoglobin 13.2 12.0-16.0 g/dl Hematocrit 41.5 37.0-47.0 % Mean Corpuscular Volume 90.2 80.0-98.0 fL Mean Corpuscular Hemoglobin 28.7 27.0-33.0 pg Mean Corpuscular HGB Conc 31.8 31.0-35.0 g/dl Red Cell Distribution Width 13.7 11.0-16.0 % Platelet Count 240 160-400 X10*3/uL Mean Platelet Volume 11.6 9.4-12.3 fL Neutrophils Percent Auto 49.2 45-73 % Imm Gran Pct Auto 0.3 0.0-0.4 % Lymphocytes Percent Auto 40.0 20-40 % Monocytes Percent Auto 7.8 2-11 % Eosinophils Percent Auto 1.8 0-4 % Basophils Percent Auto 0.9 0-2 % NRBC Pct Auto 0.0 0.0-0.2 /100WBC Neutrophils Absolute Auto 3.2 2.0-8.3 x10*3/uL Imm Gran Abs Auto 0.02 0.00-0.03 X10*3/uL Lymphocytes Absolute Auto 2.6 1.2-4.9 X10*3/uL Monocytes Absolute Auto 0.5 0.1-1.2 X10*3/uL Eosinophils Absolute Auto 0.1 0.0-0.4 X10*3/uL Basophils Absolute Auto 0.1 0.0-0.2 X10*3/uL NRBC Abs Auto 0.000 0.0-0.012 X10*3/uL Comprehensive [place]. Panel Fa st Reviewed date:11/21/2022 12:54:25 PM Interpretation: Performing Lab:[facility], [address] [place] [phone] Notes/Report: Sodium 140 135-145 mmol/L Potassium 4.6 3.3-5.1 mmol/L Chloride 105 96-108 mmol/L Carbon Dioxide 28 22-29 mmol/L Anion Gap 12 12-20 Blood Urea Nitrogen 23 9-16 mg/dL Creatinine 0.91 0.5-1.4 mg/dL Estimated Glomerular Filt Rate 59 NOTE: For -Faroese individuals, multiply the result by 1.210. Chronic Kidney Disease: Estimated GFR < 60 mL/min/1.73m2 Severe Kidney Disease: Estimated GFR < 15 mL/min/1.73m2 Glucose Fasting 82 60-99 mg/dL Calcium 9.6 8.4-10.2 mg/dL Bilirubin Total 0.8 0.0-1.0 mg/dL Aspartate Amino Transferase 27 5-31 U/L Alanine Aminotransferase 18 0-31 U/L Total Protein 6.6 6.5-8.0 g/dL Albumin Level 4.2 3.5-5.0 g/dL Alkaline Phosphatase 71 39-117 U/L IRON PROFILE Reviewed date:11/19/2022 05:05:11 PM Interpretation: Performing Lab:[facility], [address] [place] [phone] Notes/Report: Iron 108 30-160 mcg/dL Total Iron Binding Capacity 283 228-428 mcg/dL Percent Iron Saturation 38 15-50 % Unsaturated Iron Binding 175 Lipid Panel Reviewed date:11/19/2022 05:05:42 PM Interpretation: Performing Lab:[facility], [address] [place] [phone] Notes/Report: Triglycerides 77 Desirable Triglyceride: less than 150 mg/dL Borderline High Triglyceride 150-199 mg/dL High Triglyceride: 200-499 mg/dL Very High Triglyceride: greater than or equal to 5OO mg/dL Cholesterol 167 Desirable Cholesterol: less than 200 mg/dL Borderline High Cholesterol: 200-239 mg/dL High Cholesterol: greater than 239 mg/dL LDL Cholesterol Calculated 95 Desirable LDL: less than 100 mg/dL Near Optimal/Above Optimal LDL: 110-129 mg/dL Borderline High LDL: 130-159 mg/dL High LDL: 160-189 mg/dL Very High LDL: greater than or equal to 190 mg/dL HDL Cholesterol 57 Desirable HDL: greater than 40 mg/dL Note: This HDL assay may give artificially low results in patients with liver disease. Vitamin D 25-OH Total Reviewed date:11/21/2022 12:43:48 PM Interpretation: Performing Lab:[facility], [address] [place] [phone] Notes/Report: Vitamin D 25-OH Total 55.0 >30 ng/mL Health Based Reference Values* < 20 ng/mL Deficient 20-30 ng/mL Insufficient > 30 ng/mL Sufficient *Nikki ALMANZAR. N Engl J Med. 2007;357:266-280 Care must be taken in interpreting Vitamin D results from different laboratories and methodologies. Published data demonstrated that results from patients undergoing hemodialysis may show a negative bias when tested with various automated 25-OH vitamin D assays when compared to LC-MS/MS. When testing samples from patients whose predominant form of Vitamin D is Vitamin D2, such as patients receiving Vitamin D2 supplementation, results that are subtherapeutic should be confirmed with another method such as LC-MS/MS. Microalbumin, Random Reviewed date:11/21/2022 08:00:57 AM Interpretation: Performing Lab:[address] [phone] Notes/Report: Creatinine Urine 52.59 Microalbumin Urine 30.0 Microalbum/Creatinine Ratio Ur 57.0 Albumin/Creatinine Ratio Reference Ranges: Normal: < 30 ug/mg creatinine Microalbuminuria: 30 - 300 ug/mg creatinine Clinical Albuminuria: > 300 ug/mg creatinine Hemoglobin A1c Reviewed date:11/19/2022 12:37:14 PM Interpretation: Performing Lab:[facility], [address] [place] [phone] Notes/Report: Hemoglobin A1c % 5.6 Hemoglobin A1C Reference Range Adults: 4.8 - 6.0 % Non diabetic: < 6.0 % Goal: < 7.0 % Additional Action Suggested: > 8.0 % Note: Hemoglobin A1c results are invalid for patients with abnormal amounts of HbF. Blood transfusions may impact the HbA1c concentration in the patient sample. Estimated Average Glucose 114 eAG = Estimated average glucose which is %A1C expressed as average glucose, using the formula of the F5P-Ymtwoir Average Glucose study (ADAG), Diabetes Care, Vol.31,#8, Feb. 2007 UA ClnCatch+Micro w/rflx Cul t Reviewed date:11/19/2022 12:45:03 PM Interpretation: Performing Lab:[address] [phone] Notes/Report: [id number] Urine, Clean Catch Color Urine Yellow Appearance Urine Clear PH 6.0 5.0-9.0 Glucose Urine UA Negative Negative mg/dL Urine Blood Negative Negative Specific [place] - Urine 1.010 1.005-1.025 Urine Protein Negative Neg-Trace mg/dL Urine Ketones Negative Negative mg/dL Nitrite Urine Negative Negative Leukocyte Esterase Urine Large (3+) Negative RBC Urine 0-2 0-2 /HPF WBC Urine 6-10 0-5 /HPF Squamous Epithelial Cell Urine 0-2 0-2 /HPF Bacteria Urine None Seen None Seen Hyaline Casts Urine 0-2 0-2 /LPF Occult Blood, Stool, Guaiac Reviewed date:11/26/2022 03:18:32 PM Interpretation:Negative Performing Lab: Notes/Report: Negative Occult Blood, Stool, Guaiac Neg REASON FOR REFERRAL No Information MEDICATIONS Medication SIG (Take, Route, Frequency, Duration) Notes Start Date End Date Status Lisinopril 5 MG TAKE 1 TABLET BY MOUTH EVERY DAY for 90 Active Atorvastatin Calcium 40 MG TAKE 1 TABLET BY MOUTH EVERY DAY for 30 Active Aspirin Low Dose 81 MG TAKE 1 TABLET BY MOUTH EVERY DAY for 90 Active Multi Vitamin/Minerals as directed Orally Active Cyclobenzaprine HCl 5 MG 1 tablet as nee ded Orally two times per day for 10 days 10/26/2018 Not-Taking Ambien 5 MG 1 tablet at bedtime Orally Once a day as needed for 10 days 03/16/2021 Not-Taking Vitamin D-3 1000 UNIT 1 capsule Orally O nce a day for 30 day(s) 08/23/2017 Not-Taking Ibuprofen 200 MG 1 tablet with food o r milk as needed Orally Three times a day Not-Taking IMMUNIZATIONS Vaccine Route Administration Date Status Comme nts Flu Vaccine IM Intramuscular 04/02/2011 Administered Flu Vaccine IM Intramuscular 04/06/2012 Administered Shingles IM Intramuscular 06/16/2012 Administered PPSV23 (Pnemovax) IM Intramuscular 05/26/2012 Administered Flu Vaccine IM Intramuscular 05/17/2013 Administered Flu Vaccine Unknown 04/25/2014 Administered [facility] Prevnar 13 IM Intramuscular 06/20/2014 Administered Flu Vaccine IM Intramuscular 04/19/2015 Administered pt [facility] cie[facility] Fluarix Quadrivalent IM Intramuscular 04/12/2016 Administered zFluzone Quadrivalent Unknown 03/25/2017 Administered [facility] PPSV23 (Pnemovax) IM Intramuscular 08/22/2017 Administered Flu Vaccine IM Intramuscular 04/06/2018 Administered pt wa s given the high dose flu vaccine at [facility] in [place]. Influenza High Dose IM Intramuscular 04/19/2019 Administer ed pt had the vaccine at [facility] in [place]. Influenza High Dose IM Intramuscular 03/24/2020 Administer ed Covid Vaccine Unknown 08/23/2020 Administered Pfizer Covid Vaccine Unknown 09/20/2020 Administered Influenza High Dose IM Intramuscular 04/02/2021 Administer ed SARS-COV-2 Pfizer Unknown 05/06/2021 Administered SARS-COV-2 Pfizer Unknown 02/02/2022 Administered [facility] Influenza High Dose Unknown 06/24/2022 Administered [facility] PPSV23 (Pnemovax) IM Intramuscular 11/26/2022 Administered Influenza High Dose Unknown 05/01/2023 Administered [facility] SARS-COV-2 Pfizer Unknown 05/01/2023 Administered [facility] SOCIAL HISTORY Tobacco Use: Social History Observation Description Date Details (start date - stop date) Never Smoker NA - NA Sex Assigned At : Social History Observation Description Sex Assigned At Unknown Tobacco Use/Smoking Question Answer Notes Patient is a nonsmoker Additional Findings: Tobacco Non-User Cu rrent non-smoker, currently using no form of tobacco Alcohol Screen Question Answer Notes Did you have a drink containing alcohol in the p ast year? No Points 0 Interpretation Negative PROBLEMS Problem Type ICD Code Onset Dates Problem Status W/U Status Risk SNOMED Code Notes Problem Vitamin D deficiency (E55.9) Active confirmed 30176489 Problem Diverticulitis (K57.92) Active confirmed 119739084 Problem Primary insomnia (F51.01) Active confirmed 9080466 Problem Irritable bowel syndrome without diarrhea (K58.9) Active confirmed 16770389 Problem Vitiligo (L80) Active confirmed 8672027 7 Problem Lumbar disc disease (M51.9) Active confirmed 884392852 Problem Osteopenia (M85.80) Active confirmed 31 7777188 Problem Essential hypertension (I10) Active confirmed 60196042 Problem Prediabetes (R73.09) Active confirmed 6379879 Problem Other iron deficiency anemia (D50.8) Active confirmed 77100219 Problem Costochondritis (M94.0) Active confirmed 52652687 Problem Abnormal mammogram (R92.8) Active confirmed 141528599 Problem Panic attacks (F41.0) Active confirmed 878438145 Problem LBBB (left bundle branch block) (I44.7) Active confirmed 27140457 Problem Sciatica of right side (M54.31) Active confirmed 22023604 Problem Elevated LDL cholesterol level (E78.00) Active confirmed 934333562 Problem MCI (mild cognitive impairment) (G31.84) Active confirmed 429419659 VITAL SIGNS Blood pressure diastolic 58 mm Hg 11/26/2022 karen ght is down 3 pounds since 11-22-21 Height 65.5 in 11/26/2022 weight is down 3 pounds since 11-22-21 Blood pressure systolic 124 mm Hg 11/26/2022 weig ht is down 3 pounds since 11-22-21 Weight 121 lbs 11/26/2022 weight is down 3 pounds since 11-22-21 BMI 19.83 kg/m2 11/26/2022 weight is down 3 pounds since 11-22-21 Encounters Encounter Location Date Provider Diagnosis Cole Becker MD [address] [place] [phone] 11/26/2022 Cole Becker Adult general medica l exam Z00.00 ; Essential hypertension I10 ; MCI (mild cognitive impairment) G31.84 ; Vitiligo L80 ; Skin lesion L98.9 ; Encounter for immunization Z23 ; Depression screening Z13.31 and Colon cancer screening Z12.[address] MD [address] [place] [phone] 11/19/2022 Cole Becker Prediabetes R73.09 ; Essential hypertension I10 ; Vitamin D deficiency E55.9 ; Elevated LDL cholesterol level E78.00 and Other iron deficiency anemia D50.8 ASSESSMENTS Encounter Date Diagnosis Assessment Notes Treatment Notes Treatment Clinical Notes 11/26/2022 Essential hypertension (ICD-10 - I10) stable, will continue curent regiment 11/26/2022 Adult general medical exam (ICD-10 - Z00.00) labs reviewed and discussed with patient 11/19/2022 Essential hypertension (ICD-10 - I10) 11/19/2022 Prediabetes (ICD-10 - R73.09) 11/26/2022 MCI (mild cognitive impairment) (ICD-10 - G31.84) remains stable 11/19/2022 Vitamin D deficiency (ICD-10 - E55.9) 11/26/2022 Vitiligo (ICD-10 - L80) needs to wear sunscreen 11/19/2022 Elevated LDL cholesterol level (ICD-10 - E78.00) 11/26/2022 Skin lesion (ICD-10 - L98.9) refer to many derm/ info given to patient to make her own appt 11/19/2022 Other iron deficiency anemia (ICD-10 - D50.8) 11/26/2022 Encounter for immunization (ICD-10 - Z23) PCV23 administered 11/26/2022 Depression screening (ICD-10 - Z13.31) negative scree 11/26/2022 Colon cancer screening (ICD-10 - Z12.11) guaiac negative 11/26/2022 Other order faxed [facility] PLAN OF TREATMENT Pending Test Test Name Order Date Electrocardiogram (EKG) 08/22/2017 Electrocardiogram (EKG) 09/10/2018 MRI LUMBAR SPINE NO CONTRAST 02/06/2021 XR CHEST 2 VIEW PA & LAT 06/20/2014 BONE DENSITY DEXA 08/03/2020 XR chest 2V 10/26/2021 Next Appt Details Provider Name:Cole rivera, 11/25/2023 07:30:00 AM, [address] [place] [address], [address], [phone], Provider Name:Cole rivera, 12/02/2023 01:00:00 PM, [address] [place] [address], [place] [address], [place], [place], [phone], Insurance Providers Payer Name Payer Address Payer Phone Subscriber Number Group Number Insured Name Patient Relationship to Insured Coverage Start Date Coverage End Date [facility] are [employer] [address] [address] [place] [address] [id number] Nicky Cifuentes Self - patient is the insured 4 MEDICAL (GENERAL) HISTORY Medical History History ICD Code colonoscopy 02/07/2009 due in 2019; colonoscopy booked for 04/13/[address] Fisher Surgical History Surgery Date(Month/Year) LT Hand Mass Excisional Biop sy and LT Middle Finger flexor tenosynovectomy 11/2020
[2023-06-05 13:31] LABS: MANUAL DIFF FLAG NO
[2023-06-05 13:42] LABS: Basophils Absolute Auto 0.1 X10*3/uL (0.0-0.2); Basophils Percent Auto 0.5 % (0-2); Eosinophils Absolute Auto 0.1 X10*3/uL (0.0-0.4); Eosinophils Percent Auto 0.5 % (0-4); Hematocrit 37.5 % (37.0-47.0); Hemoglobin 12.2 g/dl (12.0-16.0); Imm Gran Abs Auto 0.03 X10*3/uL (0.00-0.03); Imm Gran Pct Auto 0.3 % (0.0-0.4); Lymphocytes Absolute Auto 1.6 X10*3/uL (1.2-4.9); Lymphocytes Percent Auto 17.3 % (20-40); Mean Corpuscular HGB Conc 32.5 g/dl (31.0-35.0); Mean Corpuscular Hemoglobin 28.8 pg (27.0-33.0); Mean Corpuscular Volume 88.4 fL (80.0-98.0); Mean Platelet Volume 10.4 fL (9.4-12.3); Monocytes Absolute Auto 0.5 X10*3/uL (0.1-1.2); Monocytes Percent Auto 5.8 % (2-11); Neutrophils Absolute Auto 6.9 x10*3/uL (2.0-8.3); Neutrophils Percent Auto 75.6 % (45-73); Platelet Count 212 X10*3/uL (160-400); Red Blood Count 4.24 X10*6/uL (4.20-5.50); Red Cell Distribution Width 14.1 % (11.0-16.0); White Blood Count 9.1 X10*3/uL (4.8-10.8)
[2023-06-05 13:49] LABS: Alanine Aminotransferase 17 U/L (0-31); Albumin Level 4.2 g/dL (3.5-5.0); Alkaline Phosphatase 67 U/L (39-117); Anion Gap 13 (12-20); Aspartate Amino Transferase 26 U/L (5-31); Bilirubin Total 0.5 mg/dL (0.0-1.0); Blood Urea Nitrogen 27 mg/dL (9-16); Calcium 9.6 mg/dL (8.4-10.2); Carbon Dioxide 27 mmol/L (22-29); Chloride 104 mmol/L (96-108); Creatinine Clr Calc Pharmacy 38.8; Estimated Glomerular Filt Rate 52; Glucose Random 104 mg/dL (60-115); Potassium 5.1 mmol/L (3.3-5.1); Sodium 139 mmol/L (135-145)
[2023-06-05 13:56] LABS: Troponin-I High Sensitivity 10.4 ng/L (<3.5-17.0)
[2023-06-05 17:22] LABS: Troponin-I High Sensitivity 6.5 ng/L (<3.5-17.0)
[2023-06-05] MEDS: amLODIPine Besylate 10 MG TABLET PO (18:44)
--- NOTE | 2023-06-05 19:05 | ED.GENADULT ---
HPI - General Adult General Chief complaint: Dizziness Stated complaint: DIZZY @ [facility] PER EMS Time Seen by Provider: 06/05/23 13:02 Source: patient and EMS Mode of arrival: EMS Limitations: no limitations History of Present Illness HPI narrative: Patient comes to the emergency room complaining of lightheadedness. Patient states that she was standing at the [facility], started feeling lightheaded and was able to sit down. Patient states that she was very lightheaded, denies passing out, no chest pain or shortness of breath. After she recovered, patient states that she started feeling back to baseline. Patient states that a few years ago the same thing happened. At this time, patient feels back to baseline. When patient had a near syncopal episode, patient was already sitting, patient did not fall, did not hit her head, patient is not on blood thinners. Related Data Home Medications Medication Instructions Recorded Confirmed atorvastatin 40 mg tablet 40 mg PO BEDTIME 04/26/20 11/08/20 lisinopril 5 mg tablet 5 mg PO BEDTIME 04/26/20 11/08/20 multivitamin 1 tab PO DAILY 04/26/20 11/08/20 aspirin 81 mg chewable tablet 81 mg PO BEDTIME 10/23/20 11/08/20 Allergies Allergy/AdvReac Type Severity Reaction Status Date / Time oxycodone Allergy Intermediate Confusion Verified 06/17/22 15:03 Review of Systems Review of Systems: Constitutional : No Weight loss, No Fever, No Chills, No Night Sweats, No Fatigue, No Malaise ENT/Mouth : No Hearing loss, No Ear Pain, No Nasal Congestion, No Sinus Pain, No Hoarseness, No sore throat, No Rhinorrhea, No Swallowing Difficulty Eyes: No Eye Pain, No Swelling, No Redness, No Foreign Body, No Discharge, No Vision Changes Cardiovascular : No Chest Pain, No SOB, No Dyspnea on Exertion, No Orthopnea, No Edema, No Palpitations Respiratory : No Cough, No Sputum, No Wheezing, No Smoke Exposure, No Dyspnea Gastrointestinal : No Nausea, No Vomiting, No Diarrhea, No Constipation, No abdominal Pain, No Hematochezia, No Melena Genitourinary : no irregular bleeding, No Dysuria, No Urinary Frequency, No Hematuria, No Urinary Incontinence, No Urgency, No Flank Pain, No Urinary Flow Changes, No Hesitancy Musculoskeletal : No joint pain, No Myalgias, No Joint Swelling Skin : No Skin Lesions, No rash Neuro : No Weakness, No Numbness, No Paresthesias, complaining of a near syncopal episode, No Dizziness, No Headache Psych : No Anxiety/Panic, No Depression, No SI/HI/AH/VH, No Social Issues, Heme/Lymph: No Bruising, No Bleeding,No Lymphadenopathy Endocrine : No Polyuria, No Polydipsia, No Temperature Intolerance [facility] Past Medical History Medical History Arthritis TIA (transient ischemic attack) COVID-19 vaccine administered Pre-diabetes History of anesthesia complications Dementia Osteoarthritis LBBB (left bundle branch block) Syncope HTN (hypertension) Surgical History History of esophagogastroduodenoscopy (EGD) Hx of cataract surgery History of total right hip arthroplasty Hx of colonoscopy History of appendectomy History of tonsillectomy and adenoidectomy History of hysterectomy Family History Family History Father No problems noted. Mother Brain tumor Sister No problems noted. Daughter No problems noted. Son No problems noted. Son No problems noted. Social History Social History Are you a primary childcare provider to a significant other at home: No Do you presently have visiting nurse or other home services: No Alcohol intake: never Smoked in Last 30 Days: No Use of substances other than those prescribed or required for medical reasons: No Advance Directives: No Advance Directives Information Provided: Yes Current occupational status: retired 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 Physical Exam ED Vital Signs: Vital Signs - 24 hr 06/05/23 11:40 06/05/23 15:53 06/05/23 15:55 Temperature 97.8 F Pulse Rate 67 67 84 Respiratory Rate 14 Blood Pressure 154/68 H 194/74 H 205/95 H Pulse Oximetry 96 Oxygen Delivery Method Room Air 06/05/23 15:57 06/05/23 18:23 06/05/23 19:41 Temperature 98.3 F 97.8 F Pulse Rate 84 71 77 Respiratory Rate 18 16 Blood Pressure 203/94 H 203/80 H 147/58 H Pulse Oximetry 99 98 Oxygen Delivery Method Room Air Room Air 06/05/23 20:11 Temperature 98.1 F Pulse Rate 80 Respiratory Rate 18 Blood Pressure 145/57 H Pulse Oximetry 97 Oxygen Delivery Method Room Air BMI result Body Mass Index 20.1 Const Other: Appearance: Alert. Oriented X3. No acute distress. Eyes: Pupils equal, round and reactive to light. ENT: Pharynx normal. Neck: Normal inspection. Neck supple. No lymph nodes noted. No crepitus CVS: Normal heart rate and rhythm. Pulses normal. Normal S1 and S2 Respiratory: No respiratory distress. Breath sounds normal. No Wheezing. No rales Abdomen: Soft and nontender. No rigidity. No distention. Skin: Skin warm and dry. Normal skin color. Normal skin turgor. Extremities: No lower extremity edema. No Lacerations. No Rash Neuro: Oriented X 3. No motor deficit. No sensory deficit. Moving all extremities. No slurred speech. CN 2 through 12 grossly intact Psych: calm, cooperative, normal affect Medications Administered Discontinued Medications Generic Name Dose Route Start Last Admin Trade Name Freq PRN Reason Stop Dose Admin Amlodipine Besylate 10 mg 06/05/23 18:19 06/05/23 18:44 Amlodipine Besylate 10 Mg Tablet PO 06/05/23 18:20 10 mg ONCE ONE Administration Protocol Medical Decision Making Medical Decision Making MDM Narrative: -my interpretation of labs: Normal hematology and chemistry, troponin x2 negative and flat -heart rate 65, no ST segment depression or elevation, no T-wave inversion, QTC 65 -wells score for pulmonary embolism is 0 -patient is a bit hypertensive, takes lisinopril 5 mg. Patient was given a dose of amlodipine for a blood pressure of 203/80. -given amlodipine 10 mg, BP improved to 145/57 -patient is symptomatic, orthostatic vitals negative -discussed with the patient to check her blood pressures at home and keep a log for the patient's primary care physician, patient has an appointment in 5 days from now. Discussed with the patient in the meantime she sees high blood pressures above 140 systolic, to take 10 mg daily until she sees her PCP Differential Diagnosis Differential Diagnoses: The differential diagnosis associated with the presentation includes (Syncope, near syncope, ACS, orthostatic hypotension, hypertension) Admission/Observation Consideration of admission/observation: Escalation of care including admission/observation considered (Given the patient's initial history and presentation, admission was considered) Lab Data MDM Lab Attestation statement: I reviewed the patient's lab results. 06/05/23 13:19 06/05/23 13:19 Labs: Lab Results 06/05/23 06/05/23 06/05/23 Range/Units 13:18 13:19 16:31 WBC 9.1 (4.8-10.8) X10*3/uL RBC 4.24 (4.20-5.50) X10*6/uL Hgb 12.2 (12.0-16.0) g/dl Hct 37.5 (37.0-47.0) % MCV 88.4 (80.0-98.0) fL MCH 28.8 (27.0-33.0) pg MCHC 32.5 (31.0-35.0) g/dl RDW 14.1 (11.0-16.0) % Plt Count 212 (160-400) X10*3/uL MPV 10.4 (9.4-12.3) fL Immature Gran % (Auto) 0.3 (0.0-0.4) % Neut % (Auto) 75.6 H (45-73) % Lymph % (Auto) 17.3 L (20-40) % [place] % (Auto) 5.8 (2-11) % Eos % (Auto) 0.5 (0-4) % Baso % (Auto) 0.5 (0-2) % Lymph # (Auto) 1.6 (1.2-4.9) X10*3/uL [place] # (Auto) 0.5 (0.1-1.2) X10*3/uL Eos # (Auto) 0.1 (0.0-0.4) X10*3/uL Baso # (Auto) 0.1 (0.0-0.2) X10*3/uL Abs Immat Gran (auto) 0.03 (0.00-0.03) X10*3/uL Absolute Neuts (auto) 6.9 (2.0-8.3) x10*3/uL Absolute Nucleated RBC 0.000 (0.0-0.012) X10*3/uL Nucleated RBC % (auto) 0.0 (0.0-0.2) /100WBC Sodium 139 (135-145) mmol/L Potassium 5.1 (3.3-5.1) mmol/L Chloride 104 (96-108) mmol/L Carbon Dioxide 27 (22-29) mmol/L Anion Gap 13 (12-20) BUN 27 H (9-16) mg/dL Creatinine 1.03 (0.5-1.4) mg/dL Estim Creat Clear Calc 38.8 Estimated GFR 52 Random Glucose 104 (60-115) mg/dL Calcium 9.6 (8.4-10.2) mg/dL Total Bilirubin 0.5 (0.0-1.0) mg/dL AST 26 (5-31) U/L ALT 17 (0-31) U/L Alkaline Phosphatase 67 (39-117) U/L Troponin I High Sens 10.4 6.5 (<3.5-17.0) ng/L Total Protein 7.0 (6.5-8.0) g/dL Albumin 4.2 (3.5-5.0) g/dL Independent Interpretation I performed an independent interpretation of an: EKG Interpretation: Normal sinus rhythm, heart rate 65, no ST segment depression or elevation, T-wave inversion, QTC 413 Independent Historian Clinical information obtained from an independent historian. History obtained from or confirmed by: Other (Patient's daughter) Critical Care Time Critical Care Time Critical Care Time: Yes Total Critical Care Time: 60 Attestation: I have personally provided critical care time. Time includes review of lab data, radiology results, discussion with consultants, and monitoring for potential decompensation. Intervention performed as documented. Discharge Plan Discharge Clinical Impression: Near syncope, Hypertension Patient Disposition: Home, Self-Care Instructions: Hypertension (ED) Additional Instructions: If your blood pressure is above 140s systolic (top number), please increase your lisinopril dose to 10 mg. Please keep keep a log of your blood pressures. Please follow-up with your primary care physician tomorrow. If you have any worsening or new symptoms, please return to the emergency room or call 911 Prescriptions: No Action lisinopril 5 mg tablet 5 mg PO BEDTIME Rx Instructions: take in the evening atorvastatin 40 mg tablet 40 mg PO BEDTIME multivitamin Tablet 1 tab PO DAILY aspirin 81 mg tablet,chewable 81 mg PO BEDTIME
--- NOTE | 2023-06-05 20:14 | PC.NURSE ---
pt axox4; reports sx have resolved and i feel much better. bp improved last 145/57. pt ambulatory with steady gait to bathroom. pt denies cp/sob/n/v/d. daughter at bedside. awaiting d/c home.
== END 2023-06-05 22:03 | disposition home or self-care (01) ==
PROVIDERS: Emergency Provider Emergency Medicine; PCP Internal Medicine
DX: R55 Syncope and collapse (principal); R42 Dizziness and giddiness; R94.31 Abnormal electrocardiogram [ECG] [EKG]; I10 Essential (primary) hypertension; Z79.899 Other long term (current) drug therapy
CPT/HCPCS: 36415; 80053; 84484; 85025; 93005; 99283; 99285

== ENCOUNTER → 2023-06-19 14:11 | Outpatient (REF) | payer MEDICARE, SELFPAY ==
--- NOTE | 2023-06-19 14:14 | HM_ITS ---
* Total procedure time 30 days. Wear time 0.8 days. * Underlying rhythm is sinus with an average rate of 81/Min. Range 57-120/Min. * Occasional supraventricular ectopy with very brief runs. * Rare ventricular ectopy. * Patient activated the symptom button 2 times. No symptoms mentioned in diary. MTDD
== END ==
LOC: HO.CARD 14:11
PROVIDERS: PCP Internal Medicine; Visit Provider Internal Medicine
DX: R00.1 Bradycardia, unspecified (principal)
CPT/HCPCS: 93270

== ENCOUNTER → 2023-06-19 14:14 | Outpatient (BNV) | payer MEDICARE, SELFPAY | PROVIDERS: PCP Internal Medicine; Visit Provider Internal Medicine | DX: I47.10 Supraventricular tachycardia, unspecified (principal) | CPT/HCPCS: 93272 ==

== ENCOUNTER 2023-10-20 08:28 | Observation (INO) | payer MEDICARE, SELFPAY ==
[2023-10-20] VITALS (12 sets, daily range): BP systolic 96–164; BP diastolic 45–71; PULSE 66–100; RESP 13–22; TEMP 36.3–37; O2SAT 96–98; BMI 19.4; BMI 19.3
--- NOTE | ~2023-10-20 | US_ITS ---
EXAMINATION: US EXTRACRANIAL CAROTID DUPLEX, BILATERAL CLINICAL INFORMATION: Near-syncope COMPARISON: Carotid Doppler 07/12/2019 TECHNIQUE: Real-time ultrasound and Doppler techniques (integrating B-mode 2-D vascular images, Doppler spectral analysis and color-flow Doppler imaging) were utilized to interrogate the extracranial carotid arteries, the vertebral arteries and proximal subclavian arteries bilaterally. The degree of stenosis is determined by criteria similar to NASCET. FINDINGS: Right Side: 1. There is mild atherosclerotic plaque seen in the bifurcation/proximal ICA region. 2. The common carotid artery PSV proximally is 83 cm/s and distally 81 cm/s. 3. The proximal internal carotid artery velocities are 82 cm/s systolic and 21 cm/s diastolic. 4. The proximal external carotid artery PSV is 103 cm/s. 5. The vertebral artery shows antegrade flow. 6. The subclavian artery waveforms are normal. Left Side: 1. There is no atherosclerotic plaque seen in the bifurcation/proximal ICA region. 2. The common carotid artery PSV proximally is 112 cm/s and distally 78 cm/s. 3. The proximal internal carotid artery velocities are 75 cm/s systolic and 19 cm/s diastolic. 4. The proximal external carotid artery PSV is 110 cm/s. 5. The vertebral artery shows antegrade flow. 6. The subclavian artery waveforms are normal. US/US carotid duplex BI IMPRESSION: 1. RIGHT: Minimal, non-hemodynamically significant stenosis of the proximal right internal carotid artery corresponding to a 0-49% stenosis by velocity criteria. 2. LEFT: Normal left internal carotid artery without atherosclerotic plaque or hemodynamically significant stenosis. 3. There is no change in the category severity of disease when compared to the previous study dated 07/12/2019.
--- NOTE | ~2023-10-20 | CT_ITS ---
EXAMINATION: CT HEAD WITHOUT CONTRAST CLINICAL INFORMATION: Syncope COMPARISON: CT head August 11, 2019 TECHNIQUE: Contiguous axial imaging was performed from the skull base to vertex without intravenous administration of contrast. Coronal and sagittal reformatted images are performed at the CT scanner. [This CT examination was performed using dose optimization techniques as appropriate, variously including the following: *Automated exposure control *Adjustment of mA and/or kV according to patient size (this includes techniques or standardized protocols for targeted exams where dose is matched to indication/reason for exam; i.e. extremities or head) *Use of iterative reconstruction technique] DLP: 601 mGy-cm. FINDINGS: There is no evidence of acute intracranial hemorrhage or territorial infarction. No abnormal mass-effect or midline shift is seen. Goff to white matter differentiation is well preserved. No extra-axial fluid collections are identified. There is generalized global volume loss. There is moderate prominence of the ventricles and the sulci . There is moderate hypodensity of the periventricular white matter due to chronic small vessel ischemic disease. There are vascular calcifications of the internal carotid arteries bilaterally. There is no osseous abnormality. The mastoid air cells and visualized portions of the paranasal sinuses are well-aerated. CT/CT head/brain wo IV con IMPRESSION: No acute intracranial pathology.
--- NOTE | ~2023-10-20 | XR_ITS ---
EXAMINATION: XR CHEST CLINICAL INFORMATION: Weakness with question of pneumonia COMPARISON: 08/11/2019 TECHNIQUE: 2 views of the chest were obtained. FINDINGS: There is a thoracic scoliosis convex to the right. No other abnormality is noted involving the heart, lungs, mediastinum, bony thorax or soft tissues. No infiltrates, effusions or lung masses. XR/XR chest 2V IMPRESSION: No acute intrathoracic disease.
--- NOTE | 2023-10-20 08:58 | ED_ITS ---
HPI - Weakness General Chief complaint: Weakness Stated complaint: Weakness Time Seen by Provider: 10/20/23 08:57 Source: patient, family (daughter), RN notes reviewed and old records reviewed Mode of arrival: ambulatory Limitations: no limitations History of Present Illness HPI Narrative: 83 year old female with pmhx significant for LBBB, HTN, OA, TIA, and vascular dementia presents to the ED today for evaluation of generalized weakness and lightheadedness x3 days. Admits to feeling light headed on standing however can typically feel this come on and knows to sit down.Denies falls or syncope. Admits to associated dry cough and dysuria. Denies known sick contacts. Denies recent travel or long car rides. Denies headache, sore throat, ear or eye pain, vision changes, chest pain, dyspnea, SOB, wheezing, N/V, LE pain/ swelling, flank pain, hematuria, abdominal pain, melena, hematochezia. Patient's daughter is at bedside to assist with history. She tells me that patient has a history of vascular dementia. She currently lives alone at home. She notes a history of orthostatic hypotension and has been evaluated by PCP who has since decreased lisinopril dose. Daughter states that when she arrived at patient's home this morning, patient was extremely weak and complaining of feeling light headed, prompting her to bring her in for evaluation. She notes her symptoms have never been this severe. Related Data Home Medications Medication Instructions Recorded Confirmed atorvastatin 40 mg tablet 40 mg PO BEDTIME 04/26/20 10/20/23 lisinopril 5 mg tablet 5 mg PO BEDTIME 04/26/20 10/20/23 multivitamin 1 tab PO BEDTIME 04/26/20 10/20/23 aspirin 81 mg chewable tablet 81 mg PO BEDTIME 10/23/20 10/20/23 Allergies Allergy/AdvReac Type Severity Reaction Status Date / Time oxycodone Allergy Intermediate Confusion Verified 06/17/22 15:03 Review of Systems 2 Review of Systems: Constitutional: No fever, chills, fatigue, night sweats, weight changes, +generalized weakness ENT/Mouth: No ear pain, hearing loss, nasal congestion, sinus pain, rhinorrhea, sore throat Eyes: No eye pain, swelling, redness, vision changes, discharge Cardio: No chest pain, palpitations, GUZMAN, orthopnea, peripheral edema Pulm: No SOB, cough, sputum, wheezing, dyspnea, hemoptysis GI: No nausea, vomiting, hematemesis, abdominal pain, diarrhea, constipation, hematochezia, melena : No irregular bleeding, dysuria, frequency, urgency, hesitancy, hematuria, flank pain, urinary flow changes, urinary incontinence or retention MSK: No back pain, neck pain, joint pain, myalgias Skin: No lesions, rashes Neuro: No weakness, numbness, paresthesias, LOC, headache, + lightheaded Psych: No anxiety/panic, depression, SI/HI, AH/VH All other systems reviewed and are negative. [facility] Past Medical History Attestation statement: The following information was validated with the patient. Source: old records reviewed and nursing notes reviewed Medical History Arthritis TIA (transient ischemic attack) COVID-19 vaccine administered Pre-diabetes History of anesthesia complications Dementia Osteoarthritis LBBB (left bundle branch block) Syncope HTN (hypertension) Surgical History History of esophagogastroduodenoscopy (EGD) Hx of cataract surgery History of total right hip arthroplasty Hx of colonoscopy History of appendectomy History of tonsillectomy and adenoidectomy History of hysterectomy Family History Family History Father No problems noted. Mother Brain tumor Sister No problems noted. Daughter No problems noted. Son No problems noted. Son No problems noted. Social History Social History Are you a primary personal care assistant to a significant other at home: No Do you presently have visiting nurse or other home services: No Alcohol intake: never Patient Tobacco Use Status: Never used Tobacco Current occupational status: retired 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 Physical Exam 2 Vital Signs: Vital Signs: Last Vital Signs Temp 98.5 F 10/20/23 19:25 Pulse 80 10/20/23 19:25 Resp 22 H 10/20/23 19:25 BP 164/71 H 10/20/23 19:25 Pulse Ox 98 10/20/23 19:25 O2 Del Method Room Air 10/20/23 19:25 BMI result Body Mass Index 19.4 Vital signs stable Const: General: cooperative, healthy appearing, comfortable and no acute distress Orientation/consciousness: patient oriented x3 Limitations: no limitations HEENT: Head: Yes normal to inspection, Yes No palpable skull fracture present, Yes normocephalic and Yes atraumatic Ears: hearing grossly normal bilaterally, external ears normal, TM's normal bilaterally, EAC's normal, mastoids normal and no periauricular adenopathy Eyes: General: appearance normal, both eyes and all related structures C onjunctivae: conjunctivae normal Sclerae: sclerae normal Pupils: Equal, round and reactive pupils present Neck: Neck: Yes normal visual inspection, Yes full ROM, Yes no lymphadenopathy and Yes no JVD Chest: Chest palpation & inspection: normal inspection of the chest and normal palpation of entire chest wall Resp: Effort & Inspection: normal respiratory effort and able to speak in complete sentences Auscultation: clear to auscultation bilaterally Cardio: Jugular venous distension: no JVD Rate: regular rate Rhythm: r egular rhythm GI: Inspection: Yes normal to inspection Palpation (GI): Soft to palpation and nontender : General: Yes no CVA tenderness Back/Spine/Pelvis: Back: no CVA tenderness Skin: General skin exam: no rashes or lesions noted Neuro: General: patient oriented x3 and Unable to assess gait Cranial nerves: Yes Equal, round and reactive pupils present Gait exam (Neuro): U nable to assess gait Motor exam (neuro): Pronator motor function not present and no tremor noted Coordination: [id number] test normal, [id number] test normal and Normal rapid alternating movements of the distal upper extremity present (Neuro) Course Course Course Narrative: 1000-- Initial set of orthostatic vital signs positive > 2L IVF hanging. Will re-evaluate. 1245-- Patient has tested negative for covid, flu and rsv. Urine with large amount of leukocytes, >50 wbc, 4+ bacteria and only 0-2 squamous epithelial cells > will treat for UTI with ceftin. Chemistry without acute electrolyte abnormality requiring intervention. BUN elevated to 25, creatinine wnl. receiving ivfs. random glucose 117. initial troponin, 5.4, delta troponin 3.2. EKG showing normal sinus rhythm at a rate of 81 beats per minute, QT 364, QTC 422, there is left axis deviation along with left bundle-branch block. There are no ST elevations or acute ischemic changes. ACS unlikely. CXR without consolidation or infiltrate to suggest pneumonia. no effusion. > on repeat orthostatic vitals, BP wnl however patient endorses feeling lightheaded when going from sitting to standing. given patient is symptomatic, will present patient for admission. 1254-- Discussed case with hospitalist, Dr. Burgos, who will admit patient for symptomatic orthostatic hypotension and urinary tract infection. Medications Administered Generic Name Dose Route Start Last Admin Trade Name Freq PRN Reason Stop Dose Admin Lactated Ringer's 1,000 mls @ 100 mls/hr 10/20/23 14:15 10/20/23 16:36 Lr IVCONT 100 mls/hr .Q10H ZUNILDA Administration Ceftriaxone Sodium 1 gm/ 50 mls @ 100 mls/hr 10/20/23 15:00 10/20/23 16:00 Sodium Chloride IV Infused Q24H ZUNILDA Infusion Sodium Chloride 3 ml 10/20/23 16:00 10/20/23 15:31 0.9 % Sodium Chloride Flush 3 Ml Syringe IVFLUSH Not Given QSHIFT ZUNILDA Discontinued Medications Generic Name Dose Route Start Last Admin Trade Name Freq PRN Reason Stop Dose Admin Cefuroxime Axetil 250 mg 10/20/23 10:01 10/20/23 10:07 Cefuroxime Axetil 250 Mg Tablet PO 10/20/23 10:02 250 mg ONCE ONE Administration Sodium Chloride 1,000 mls @ 999 mls/hr 10/20/23 09:15 10/20/23 11:01 Ns IV 10/20/23 10:15 Infused .Q1H1M ZUNILDA Infusion Sodium Chloride 1,000 mls @ 999 mls/hr 10/20/23 10:00 10/20/23 11:09 Ns IV 10/20/23 11:00 Infused .Q1H1M ZUNILDA Infusion Sodium Chloride 1,000 mls @ 999 mls/hr 10/20/23 11:15 10/20/23 12:31 Ns IV 10/20/23 12:15 Infused .Q1H1M ZUNILDA Infusion Meclizine HCl 12.5 mg 10/20/23 09:11 10/20/23 10:03 Meclizine Hcl 12.5 Mg Tablet PO 10/20/23 09:12 12.5 mg ONCE ONE Administration Medical Decision Making Medical Decision Making [facility] Narrative: 83 year old female with pmhx significant for LBBB, HTN, OA, TIA, and vascular dementia presents to the ED today for evaluation of generalized weakness and lightheadedness x3 days. Patient hypertensive to 143/67, vitals otherwise WNL. On exam, she is nontoxic appearing and in no acute distress. Thin body habitus. AOX3. Exam is nonfocal. No pronator drift or facial droop. No slurred speech. Strength 5/5 intact throughout. Unable to assess gait as patient becomes lightheaded on standing. No nystagmus. Skin warm, dry, intact. RRR. Lungs CTA b/l. No calf tenderness bilaterally. Differential diagnosis includes anemia, electrolyte abnormality, pneumonia, urinary tract infection, failure to thrive, orthostatic hypotension, vertigo, dehydration. Lower suspicion for ACS, arrhythmia, obstructive uropathy, urosepsis, effusion, TIA/CVA, dissection, cerebellar stroke. Plan for labs, ekg, CXR, UA, orthostatic vitals, re-evaluation. Differential Diagnosis Differential Diagnoses: The differential diagnosis associated with the presentation includes As above Admission/Observation Consideration of admission/observation: Escalation of care including admission/observation considered this patient with symptomatic orthostatic hypotension will be admitted for further evaluation/ treatment. Consult Healthcare Provider Management of the patient was discussed with: Hospitalist (Dr. Burgos) Lab Data [facility] Lab Attestation statement: I reviewed the patient's lab results. As above 10/20/23 08:58 10/20/23 08:57 Labs: Lab Results 10/20/23 10/20/23 10/20/23 Range/Units 08:57 08:58 09:44 WBC 7.2 (4.8-10.8) X10*3/uL RBC 4.49 (4.20-5.50) X10*6/uL Hgb 13.0 (12.0-16.0) g/dl Hct 39.4 (37.0-47.0) % MCV 87.8 (80.0-98.0) fL MCH 29.0 (27.0-33.0) pg MCHC 33.0 (31.0-35.0) g/dl RDW 13.4 (11.0-16.0) % Plt Count 236 (160-400) X10*3/uL MPV 9.5 (9.4-12.3) fL Immature Gran % (Auto) 0.3 (0.0-0.4) % Neut % (Auto) 72.5 (45-73) % Lymph % (Auto) 14.4 L (20-40) % [place] % (Auto) 11.9 H (2-11) % Eos % (Auto) 0.3 (0-4) % Baso % (Auto) 0.6 (0-2) % Lymph # (Auto) 1.0 L (1.2-4.9) X10*3/uL [place] # (Auto) 0.9 (0.1-1.2) X10*3/uL Eos # (Auto) 0.0 (0.0-0.4) X10*3/uL Baso # (Auto) 0.0 (0.0-0.2) X10*3/uL Abs Immat Gran (auto) 0.02 (0.00-0.03) X10*3/uL Absolute Neuts (auto) 5.2 (2.0-8.3) x10*3/uL Absolute Nucleated RBC 0.000 (0.0-0.012) X10*3/uL Nucleated RBC % (auto) 0.0 (0.0-0.2) /100WBC Sodium 138 (135-145) mmol/L Potassium 4.6 (3.3-5.1) mmol/L Chloride 104 (96-108) mmol/L Carbon Dioxide 27 (22-29) mmol/L Anion Gap 12 (12-20) BUN 25 H (9-16) mg/dL Creatinine 0.97 (0.5-1.4) mg/dL Estim Creat Clear Calc 39.0 Estimated GFR 55 Random Glucose 117 H (60-115) mg/dL Calcium 9.7 (8.4-10.2) mg/dL Magnesium 2.0 (1.6-2.6) mg/dL Troponin I High Sens 5.4 (<3.5-17.0) ng/L Urine Color Yellow Urine Appearance Cloudy Urine pH 8.0 (5.0-9.0) Ur Specific [place] 1.020 (1.005-1.025) Urine Protein 30 (1+) H (Neg-Trace) mg/dL Urine Glucose (UA) Negative (Negative) mg/dL Urine Ketones Negative (Negative) mg/dL Urine Blood Negative (Negative) Urine Nitrite Negative (Negative) Ur Leukocyte Esterase Large (3+) H (Negative) Urine RBC 0-2 (0-2) /HPF Urine WBC >50 H (0-5) /HPF Ur Squamous Epith Cells 0-2 (0-2) /HPF Urine Bacteria 4+ (None Seen) Hyaline Casts 0-2 (0-2) /LPF Influenza Type A (PCR) NEGATIVE (Negative) Influenza Type B (PCR) NEGATIVE (Negative) RSV RNA Qual (PCR) NEGATIVE (Negative) SARS-CoV-2 RNA (RT-PCR) NEGATIVE (Negative) 10/20/23 Range/Units 12:10 WBC (4.8-10.8) X10*3/uL RBC (4.20-5.50) X10*6/uL Hgb (12.0-16.0) g/dl Hct (37.0-47.0) % MCV (80.0-98.0) fL MCH (27.0-33.0) pg MCHC (31.0-35.0) g/dl RDW (11.0-16.0) % Plt Count (160-400) X10*3/uL MPV (9.4-12.3) fL Immature Gran % (Auto) (0.0-0.4) % Neut % (Auto) (45-73) % Lymph % (Auto) (20-40) % [place] % (Auto) (2-11) % Eos % (Auto) (0-4) % Baso % (Auto) (0-2) % Lymph # (Auto) (1.2-4.9) X10*3/uL [place] # (Auto) (0.1-1.2) X10*3/uL Eos # (Auto) (0.0-0.4) X10*3/uL Baso # (Auto) (0.0-0.2) X10*3/uL Abs Immat Gran (auto) (0.00-0.03) X10*3/uL Absolute Neuts (auto) (2.0-8.3) x10*3/uL Absolute Nucleated RBC (0.0-0.012) X10*3/uL Nucleated RBC % (auto) (0.0-0.2) /100WBC Sodium (135-145) mmol/L Potassium (3.3-5.1) mmol/L Chloride (96-108) mmol/L Carbon Dioxide (22-29) mmol/L Anion Gap (12-20) BUN (9-16) mg/dL Creatinine (0.5-1.4) mg/dL Estim Creat Clear Calc Estimated GFR Random Glucose (60-115) mg/dL Calcium (8.4-10.2) mg/dL Magnesium (1.6-2.6) mg/dL Troponin I High Sens 3.2 (<3.5-17.0) ng/L Urine Color Urine Appearance Urine pH (5.0-9.0) Ur Specific [place] (1.005-1.025) Urine Protein (Neg-Trace) mg/dL Urine Glucose (UA) (Negative) mg/dL Urine Ketones (Negative) mg/dL Urine Blood (Negative) Urine Nitrite (Negative) Ur Leukocyte Esterase (Negative) Urine RBC (0-2) /HPF Urine WBC (0-5) /HPF Ur Squamous Epith Cells (0-2) /HPF Urine Bacteria (None Seen) Hyaline Casts (0-2) /LPF Influenza Type A (PCR) (Negative) Influenza Type B (PCR) (Negative) RSV RNA Qual (PCR) (Negative) SARS-CoV-2 RNA (RT-PCR) (Negative) Independent Interpretation I performed an independent interpretation of an: EKG and Plain X-Ray Interpretation: EKG showing normal sinus rhythm at a rate of 81 beats per minute, QT 364, QTC 422, there is left axis deviation along with left bundle-branch block. There are no ST elevations or acute ischemic changes. I have personally reviewed CXR and agree with radiologist's interpretation. Radiology Impression Discussion of test interpretation with radiology: I have reviewed the radiologist's reading. Radiologist Impression: EXAMINATION: XR CHEST CLINICAL INFORMATION: Weakness with question of pneumonia COMPARISON: 08/11/2019 TECHNIQUE: 2 views of the chest were obtained. FINDINGS: There is a thoracic scoliosis convex to the right. No other abnormality is noted involving the heart, lungs, mediastinum, bony thorax or soft tissues. No infiltrates, effusions or lung masses. XR/XR chest 2V IMPRESSION: No acute intrathoracic disease. Independent Historian Clinical information obtained from an independent historian. History obtained from or confirmed by: Other (daughter) External Record Review External record reviewed: Inpatient record, Office record, Outpatient record, Prior outpatient labs, Prior outpatient radiology, Primary care record and Outside ED record Prescription Management I considered prescription management with: Other (Meclizine) Chronic Conditions Patient?s care impacted by: Hypertension and Other (dementia, orthostatic hypotension) Social Determinants Patient?s care significantly limited by Social Determinants of Health including: Other Social Determinant of Health Critical Care Time Critical Care Time Critical Care Time: Yes Total Critical Care Time: 120 Attestation: Critical care time in the amount of 120 minutes has been provided to the patient in terms of direct patient care, frequent reevaluation, consultation with hospitalist, review and interpretation of medical data and results, and management of potentially life-threatening conditions. This is all outside of any medical procedures. Discharge Plan Discharge Clinical Impression: Orthostatic hypotension, Urinary tract infection Patient Disposition: Admitted As Inpatient Interventions: Admission Worksheet (ED) Last Done: 10/20/23 18:20 Discharge Date/Time: 10/20/23 19:00
--- NOTE | 2023-10-20 08:58 | ECG_ITS ---
Test Reason : weakness Blood Pressure : / mmHG Vent. Rate : 081 BPM Atrial Rate : 081 BPM P-R Int : 168 ms QRS Dur : 122 ms QT Int : 364 ms P-R-T Axes : 068 -60 114 degrees QTc Int : 422 ms Normal sinus rhythm Left axis deviation Left bundle branch block Abnormal ECG When compared with ECG of 05-JUN-2023 11:53, Left bundle branch block is now Present Criteria for Anteroseptal infarct are no longer Present Criteria for Inferior infarct are no longer Present Referred By: Ruby Sharp Electronically Signed By:CLAUDIA PIEDRA MD
[2023-10-20 09:01] LABS: MANUAL DIFF FLAG NO
[2023-10-20 09:04] LABS: Basophils Percent Auto 0.6 % (0-2); Eosinophils Percent Auto 0.3 % (0-4); Hematocrit 39.4 % (37.0-47.0); Imm Gran Abs Auto 0.02 X10*3/uL (0.00-0.03); Imm Gran Pct Auto 0.3 % (0.0-0.4); Lymphocytes Percent Auto 14.4 % (20-40); Mean Corpuscular Volume 87.8 fL (80.0-98.0); Mean Platelet Volume 9.5 fL (9.4-12.3); Monocytes Absolute Auto 0.9 X10*3/uL (0.1-1.2); Monocytes Percent Auto 11.9 % (2-11); Neutrophils Absolute Auto 5.2 x10*3/uL (2.0-8.3); Neutrophils Percent Auto 72.5 % (45-73); Platelet Count 236 X10*3/uL (160-400); Red Blood Count 4.49 X10*6/uL (4.20-5.50); Red Cell Distribution Width 13.4 % (11.0-16.0); White Blood Count 7.2 X10*3/uL (4.8-10.8)
[2023-10-20 09:20] LABS: Anion Gap 12 (12-20); Blood Urea Nitrogen 25 mg/dL (9-16); Calcium 9.7 mg/dL (8.4-10.2); Carbon Dioxide 27 mmol/L (22-29); Chloride 104 mmol/L (96-108); Estimated Glomerular Filt Rate 55; Glucose Random 117 mg/dL (60-115); Potassium 4.6 mmol/L (3.3-5.1); Sodium 138 mmol/L (135-145)
--- NOTE | 2023-10-20 09:35 | PC.NURSE ---
pt ambulated to room with charge nurse and daughter, labs drawn by tech, after provider saw patient additional orders placed, iv was inserted, before additional things could be done ct came to take the patient.
[2023-10-20 09:52] LABS: Appearance Urine Cloudy; Color Urine Yellow; Glucose Urine UA Negative (Negative); Leukocyte Esterase Urine Large (3+) (Negative); Nitrite Urine Negative (Negative); UMIC TRIGGER UACC YES; Urine Blood Negative (Negative); Urine Ketones Negative (Negative); Urine Protein 30 (1+) mg/dL (Neg-Trace)
[2023-10-20 09:54] LABS: Bacteria Urine 4+ (None Seen); Hyaline Casts Urine 0-2 /LPF (0-2); RBC Urine 0-2 /HPF (0-2); Squamous Epithelial Cell Urine 0-2 /HPF (0-2); UACC Culture Trigger YES; WBC Urine >50 /HPF (0-5)
[2023-10-20 09:56] LABS: Influenza A PCR NEGATIVE (Negative); Influenza B PCR NEGATIVE (Negative); Resp Syncy Virus RNA Qual PCR NEGATIVE (Negative); SARS COV2 PCR INHOUSE NEGATIVE (Negative)
[2023-10-20] MEDS: 0.9 % Sodium Chloride 1,000 ML 999 ML IV ×3 (10:00→11:30)
[2023-10-20 10:02] LABS: Troponin-I High Sensitivity 5.4 ng/L (<3.5-17.0)
[2023-10-20] MEDS: Meclizine HCl 12.5 MG TABLET PO (10:03)
[2023-10-20] MEDS: cefuroxime axetiL 250 MG TABLET PO (10:07)
--- NOTE | 2023-10-20 10:08 | PC.NURSE ---
patients orthosats were performed and was positive- provider notified, urine obtained, electronic device monitor applied, ivf started, pt medicated per order
--- NOTE | 2023-10-20 11:26 | PC.NURSE ---
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
[2023-10-20 12:35] LABS: Troponin-I High Sensitivity 3.2 ng/L (<3.5-17.0)
--- NOTE | 2023-10-20 14:27 | PM.IMHP ---
History of Present Illness Date of Service: 10/20/23 Chief Complaint: Dizziness 83-year-old female with past medical history significant for hypertension osteoarthritis TIA and vascular dementia presents to the emergency room with generalized weakness and lightheadedness worsening over 3 days. Discussed with daughter inpatient who states patient has been somewhat lightheaded since placed on lisinopril after her TIA; they states she has managed this with positional changes slowly and trying to maintain her fluids. She has no complaints of palpitations chest pain or shortness of breath. When further queried however she does admit to some dysuric symptoms. Urine with mildly active sediment. At this point she will be admitted for UTI dizziness Review of Systems Review of Systems: Denies chest pain Denies shortness of breath Denies nausea vomiting diarrhea Denies fever chills Admits positional dizziness that has worsened PMFSH Medical History Arthritis TIA (transient ischemic attack) COVID-19 vaccine administered Pre-diabetes History of anesthesia complications Dementia Osteoarthritis LBBB (left bundle branch block) Syncope HTN (hypertension) Family History Father No problems noted. Mother Brain tumor Sister No problems noted. Daughter No problems noted. Son No problems noted. Son No problems noted. Surgical History History of esophagogastroduodenoscopy (EGD) Hx of cataract surgery History of total right hip arthroplasty Hx of colonoscopy History of appendectomy History of tonsillectomy and adenoidectomy History of hysterectomy Social History Are you a primary neonatal intensive care nurse to a significant other at home: No Do you presently have visiting nurse or other home services: No Alcohol intake: never Smoked in Last 30 Days: No Use of substances other than those prescribed or required for medical reasons: No Advance Directives: No Advance Directives Information Provided: No Current occupational status: retired 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 Meds Allergies Allergy/AdvReac Type Severity Reaction Status Date / Time oxycodone Allergy Intermediate Confusion Verified 06/17/22 15:03 Active Medications: Current Medications Acetaminophen (Acetaminophen 325 Mg Tablet) 650 mg PO Q6H PRN PRN Reason: Pain, Mild (Pain Scale 1-3) Lactated Ringer's (Lr) 1,000 mls @ 100 mls/hr IVCONT .Q10H [facility] Ceftriaxone Sodium 1 gm/ (Sodium Chloride) 50 mls @ 100 mls/hr IV Q24H [facility] Magnesium Hydroxide (Milk Of Magnesia 30 Ml Oral.Susp) 30 ml PO DAILY PRN PRN Reason: Constipation Ondansetron HCl (Ondansetron Hcl 4 Mg/2 Ml Vial) 4 mg IVPUSH Q8H PRN PRN Reason: Nausea and Vomiting Sodium Chloride (0.9 % Sodium Chloride Flush 3 Ml Syringe) 3 ml IVFLUSH QSHIFT [facility] Home Medications Medication Instructions Recorded Confirmed Last Taken Type atorvastatin 40 mg tablet 40 mg PO BEDTIME 04/26/20 11/08/20 Unknown History lisinopril 5 mg tablet 5 mg PO BEDTIME 04/26/20 11/08/20 Unknown History multivitamin 1 tab PO DAILY 04/26/20 11/08/20 Unknown History aspirin 81 mg chewable tablet 81 mg PO BEDTIME 10/23/20 11/08/20 Unknown History Physical Exam Vital Signs and Narrative: Vital Signs: Last Vital Signs Temp 97.4 F 10/20/23 12:25 Pulse 84 10/20/23 12:33 Resp 20 10/20/23 12:33 BP 135/62 10/20/23 12:33 Pulse Ox 96 10/20/23 12:33 O2 Del Method Room Air 10/20/23 12:33 BMI result Body Mass Index 19.4 Const: Other: Awake alert mildly forgetful but easily reoriented Resp: Other: Clear to auscultation bilaterally no rales rhonchi or wheezes Cardio: Other: No S4; positive S1-S2; no S3 murmurs rubs or gallops GI: Other: Soft nontender nondistended normoactive bowel sounds Neuro: Other: Cranial nerves 2-12 grossly intact as tested. Motor is 5/5 all extremities. Sensation is intact. Gait not assessed Extrem: Other: No edema bilaterally Results Labs 10/20/23 08:58 10/20/23 08:57 Labs: Laboratory Results - last 24 hr 10/20/23 10/20/23 10/20/23 08:57 08:58 09:44 MCV 87.8 MCH 29.0 MCHC 33.0 RDW 13.4 Plt Count 236 MPV 9.5 Immature Gran % (Auto) 0.3 Neut % (Auto) 72.5 Lymph % (Auto) 14.4 L [place] % (Auto) 11.9 H Eos % (Auto) 0.3 Baso % (Auto) 0.6 Lymph # (Auto) 1.0 L [place] # (Auto) 0.9 Eos # (Auto) 0.0 Baso # (Auto) 0.0 Abs Immat Gran (auto) 0.02 Absolute Neuts (auto) 5.2 Absolute Nucleated RBC 0.000 Nucleated RBC % (auto) 0.0 Anion Gap 12 Estim Creat Clear Calc 39.0 Estimated GFR 55 Random Glucose 117 H Calcium 9.7 Magnesium 2.0 Troponin I High Sens 5.4 Urine Color Yellow Urine Appearance Cloudy Urine pH 8.0 Ur Specific [place] 1.020 Urine Protein 30 (1+) H Urine Glucose (UA) Negative Urine Ketones Negative Urine Blood Negative Urine Nitrite Negative Ur Leukocyte Esterase Large (3+) H Urine RBC 0-2 Urine WBC >50 H Ur Squamous Epith Cells 0-2 Urine Bacteria 4+ Hyaline Casts 0-2 Influenza Type A (PCR) NEGATIVE Influenza Type B (PCR) NEGATIVE RSV RNA Qual (PCR) NEGATIVE SARS-CoV-2 RNA (RT-PCR) NEGATIVE 10/20/23 12:10 MCV MCH MCHC RDW Plt Count MPV Immature Gran % (Auto) Neut % (Auto) Lymph % (Auto) [place] % (Auto) Eos % (Auto) Baso % (Auto) Lymph # (Auto) [place] # (Auto) Eos # (Auto) Baso # (Auto) Abs Immat Gran (auto) Absolute Neuts (auto) Absolute Nucleated RBC Nucleated RBC % (auto) Anion Gap Estim Creat Clear Calc Estimated GFR Random Glucose Calcium Magnesium Troponin I High Sens 3.2 Urine Color Urine Appearance Urine pH Ur Specific [place] Urine Protein Urine Glucose (UA) Urine Ketones Urine Blood Urine Nitrite Ur Leukocyte Esterase Urine RBC Urine WBC Ur Squamous Epith Cells Urine Bacteria Hyaline Casts Influenza Type A (PCR) Influenza Type B (PCR) RSV RNA Qual (PCR) SARS-CoV-2 RNA (RT-PCR) Imaging Radiologist's Impressions: Impressions Chest X-Ray 10/20/23 09:39 IMPRESSION: No acute intrathoracic disease. Assessment and Plan (1) Urinary tract infection: Qualifiers: Urinary tract infection type: acute cystitis Hematuria presence: without hematuria Qualified Code(s): N30.00 - Acute cystitis without hematuria Status: Acute (2) Hypertension: Qualifiers: Hypertension type: primary hypertension Qualified Code(s): I10 - Essential (primary) hypertension Status: Inactive (3) Syncope: Qualifiers: Syncope type: unspecified Qualified Code(s): R55 - Syncope and collapse Status: Acute Plan 83-year-old female with a history of hypertension osteoarthritis TIA with vascular dementia presents for worsening weakness over the last 3 days accompanied by mild dysuria symptoms. Orthostatic vital signs done in ER were positive; patient will be admitted for orthostasis/near-syncope in the backdrop of likely UTI 1. Orthostasis/near syncope -will observe on telemetry to rule out pathological rhythms -check 2D echo/carotid ultrasound/head CT -volume repletion 2. Urinary tract infection (likely secondary to active urinary sediment) -volume repletion with lactated Ringer's -ceftriaxone (1) 3. Hypertension -acceptable control at present however orthostatic vital signs noted -hold lisinopril. Add back when appropriate Full code Pneumatics Patient will require at least 2 midnights going forward to complete the workup for near syncope and to give IV antibiotics awaiting urinary culture. This can not be achieved and a lesser acute setting; patient is at high risk for outpatient failure Quality Stroke Does the patient have a stroke diagnosis?: No VTE Prior VTE?: No VTE Risk Level:: Medical - moderate - high VTE Device Contraindication: N/A - Device Ordered VTE Drug Contraindication: Treatment Not Indicated
--- NOTE | 2023-10-20 15:25 | PHA.MEDREC ---
Pharmacy Consult ? Medication Reconciliation Pharmacy has completed the medication reconciliation. Confirmed medications with Patient and daughter (over phone with Haydee Ace)
[2023-10-20] MEDS: cefTRIAXone sodium 1 GM in 0.9 % Sodium Chloride 50 ML IV (15:30)
[2023-10-20] MEDS: Lactated Ringers 1,000 ML 100 ML IVCONT (16:36)
--- NOTE | 2023-10-20 16:36 | PC.NURSE ---
patient a&o, cardiac monitor technician intact, vss, pt ivf started per order, pt currently watching tv, call ba within reach, will continue to monitor
[2023-10-21] MEDS: Lactated Ringers 1,000 ML 100 ML IVCONT ×3 (01:54→23:12)
[2023-10-21 06:11] LABS: MANUAL DIFF FLAG NO
[2023-10-21 06:24] LABS: Basophils Percent Auto 0.6 % (0-2); Eosinophils Absolute Auto 0.1 X10*3/uL (0.0-0.4); Eosinophils Percent Auto 1.5 % (0-4); Hematocrit 32.1 % (37.0-47.0); Hemoglobin 10.5 g/dl (12.0-16.0); Imm Gran Abs Auto 0.01 X10*3/uL (0.00-0.03); Imm Gran Pct Auto 0.2 % (0.0-0.4); Lymphocytes Absolute Auto 1.6 X10*3/uL (1.2-4.9); Lymphocytes Percent Auto 25.4 % (20-40); Mean Corpuscular HGB Conc 32.7 g/dl (31.0-35.0); Mean Corpuscular Hemoglobin 29.2 pg (27.0-33.0); Mean Corpuscular Volume 89.4 fL (80.0-98.0); Mean Platelet Volume 9.9 fL (9.4-12.3); Monocytes Absolute Auto 0.8 X10*3/uL (0.1-1.2); Monocytes Percent Auto 12.1 % (2-11); Neutrophils Absolute Auto 3.7 x10*3/uL (2.0-8.3); Neutrophils Percent Auto 60.2 % (45-73); Platelet Count 195 X10*3/uL (160-400); Red Blood Count 3.59 X10*6/uL (4.20-5.50); Red Cell Distribution Width 13.4 % (11.0-16.0); White Blood Count 6.2 X10*3/uL (4.8-10.8)
[2023-10-21 06:39] LABS: Alanine Aminotransferase 13 U/L (0-31); Albumin Level 3.2 g/dL (3.5-5.0); Alkaline Phosphatase 52 U/L (39-117); Anion Gap 9 (12-20); Aspartate Amino Transferase 20 U/L (5-31); Bilirubin Total 0.3 mg/dL (0.0-1.0); Blood Urea Nitrogen 17 mg/dL (9-16); Calcium 8.3 mg/dL (8.4-10.2); Carbon Dioxide 26 mmol/L (22-29); Chloride 107 mmol/L (96-108); Creatinine Clr Calc Pharmacy 46.7; Estimated Glomerular Filt Rate > 60; Glucose Random 92 mg/dL (60-115); Potassium 4.1 mmol/L (3.3-5.1); Sodium 138 mmol/L (135-145); Total Protein 5.5 g/dL (6.5-8.0)
--- NOTE | 2023-10-21 07:00 | CA_ITS ---
Transthoracic Echocardiogram Patient (Last, First, Middle): Nicky Cifuentes F Gender: Female Date of : 1940 Age: 83 Procedure Date: 10/21/2023 Procedure Type: Transthoracic E[place] [facility] [facility] [place]: 167.64 cm Weight: 54.43 kg BSA: 1.61 m2 Heart Rate: 73 bpm BP: 135 / 62 mmHg Pathologist Assistant: SB Referring MD: Mahendra Burgos DO Inclusion Specialist: Basilio Avalos MD Symptoms: Near-syncope Study Quality: Adequate ECG Rhythm: Sinus arrhythmia Conclusions: - 1. Normal LV ejection fraction of 65-70% with pseudonormal filling pattern 2. [id number]-[id number] tricuspid regurgitation 3. Mildly elevated right ventricular systolic pressure 4. No gross pericardial effusion Findings Left Ventricle Normal left ventricular size, thickness, and systolic function. The visually estimated ejection fraction is between 65-70%. Spectral Doppler is indicative of a pseudonormal filling pattern. E/E prime ratio is between 8 and 15 consistent with indeterminate filling pressures. Right Ventricle Normal right ventricular cavity size and systolic function. Atria The left atrium is normal in size. There is no evidence of interatrial shunt. The right atrium is mildly dilated. Aortic Valve There is mild thickening of the aortic valve. There is no aortic valve stenosis. There is no aortic valve regurgitation. Mitral Valve Normal mitral valve structure and function. There is trace mitral valve regurgitation. There is no mitral valve stenosis. Pulmonic Valve The pulmonic valve is likely normal. Tricuspid Valve Normal tricuspid valve structure. There is mild to moderate tricuspid valve regurgitation. Normal right atrial pressure. Mild pulmonary hypertension is present. Great Vessels The pulmonary artery was not well visualized. There is no dilatation of the ascending aorta measuring 3.00 cm. Venous The inferior vena cava is normal in size and collapses greater than 50% with inspiration. Pericardium/Pleural There is no evidence of pericardial effusion. Prior Study Comparison No significant change compared to prior study dated: 02/01/2020. Measurements 2D Linear Measurements IVSd: 1.13 0.6-0.9/0.6-1.0 cm LVIDd: 3.82 3.9-5.3/4.2-5.9 cm LVIDd Index: 2.37 2.4-3.2/2.2-3.1 cm/m2 LVIDs: 2.81 2.0-3.6 cm LVPWd: 0.77 0.7-1.1 cm LA Diam: 3.30 2.7-3.8/3.0-4.0 cm LAIDs Index: 2.05 1.5-2.3 cm/m2 LV Mass: 136.36 67-162/88-224 g LV Mass Index: 84.69 43-95/49-115 g/m2 LVOT Diam: 2.00 3.0+(-)1.3 cm 2D Systolic Function EF 4C: 66.30 >55% EF 2C: 69.90 >55% EF BiP: 68.00 >55% Mitral Valve MV Pk E: 1.08 MV PK A: 0.71 MV Decel Time: 148.00 E/A: 1.50 E'Lateral: 7.94 E'Medial: 6.53 E/E' Med: 16.50 E/E' Lat: 13.60 PHT: 43.00 MVA PHT: 5.12 Decel [place]: 7.33 Aortic Valve AoV Pk Angus: 1.41 AoV Pk Grad: 8.00 MIRYAM: 2.38 LVOT LVOT Pk Angus: 1.04 LVOT Mn Angus: 0.74 LVOT VTI: 0.22 LVOT Pk Grad: 4.00 LVOT Mn Grad: 2.00 LVOT Diam: 2.00 LVOT Area: 3.14 Diastolic Function MV Pk E: 1.08 MV Pk A: 0.71 E/A: 1.50 E'Medial: 6.53 E/E' Med: 16.50 E' Laterial: 7.94 E/E' Lat: 13.60 Right Ventricle TAPSE (mm): 17.30 TVS' Angus: 13.60 Tricuspid Valve TR Pk Angus: 3.04 TR Pk Grad: 37.00 RA Press: 3.00 RVSP: 40.00 Great Vessels Aorta Sinus of Valsalva: 2.70 2.0-3.5 cm Ao Asc: 3.00 2.1-3.4 cm Pulmonary Veins Pulm Vein S/D 1.90 Pulmonary Valve PV Pk Angus: 1.03 Peak PV Grad: 4.00 Updated in Other Vendor System with Status of Final Basilio Avalos MD electronically signed on 10/21/2023 11:51:58 AM with status of Final
[2023-10-21 07:10] VITALS: BP 168/74; PULSE 71; RESP 18; TEMP 36.7; O2SAT 95
--- NOTE | 2023-10-21 11:46 | MHC.CM.PN ---
Nilda 10/21/23, Pt lives alone, is independent, no home health services or medical equipment. She has memory impairment, is still able to do well independently, her daughter, Anusha / HCP visits frequently. 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 HCP form to be completed here and added to chart. CM will follow and assist as needed with DC plan.
[2023-10-21] MEDS: cefTRIAXone sodium 1 GM in 0.9 % Sodium Chloride 50 ML IV (15:22)
[2023-10-21 16:00] VITALS: BP 158/77; PULSE 68; RESP 16; TEMP 37.5; O2SAT 98
--- NOTE | 2023-10-21 16:35 | HO.PM.IMPN ---
Subjective Subjective Date of Service: 10/21/23 Interval History: Notes improvement since admission. Ambulatory with staff Review of Systems Denies chest pain Denies shortness of breath Denies nausea vomiting diarrhea Denies fever chills Admits positional dizziness that has worsened Physical Exam Vital Signs: Vital Signs: Last Vital Signs Temp 99.5 F 10/21/23 16:00 Pulse 68 10/21/23 16:00 Resp 16 10/21/23 16:00 BP 158/77 H 10/21/23 16:00 Pulse Ox 98 10/21/23 16:00 O2 Del Method Room Air 10/21/23 16:00 BMI result Body Mass Index 19.3 Const: Other: Awake alert mildly forgetful but easily reoriented Resp: Other: Clear to auscultation bilaterally no rales rhonchi or wheezes Cardio: Other: No S4; positive S1-S2; no S3 murmurs rubs or gallops GI: Other: Soft nontender nondistended normoactive bowel sounds Neuro: Other: Cranial nerves 2-12 grossly intact as tested. Motor is 5/5 all extremities. Sensation is intact. Gait not assessed Extrem: Other: No edema bilaterally Objective Data Active Medications Acetaminophen (Acetaminophen 325 Mg Tablet) 650 mg PO Q6H PRN PRN Reason: Pain, Mild (Pain Scale 1-3) Lactated Ringer's (Lr) 1,000 mls @ 100 mls/hr IVCONT .Q10H [facility] Last Admin: 10/21/23 11:30 Dose: 100 mls/hr Documented By: RAJ Ceftriaxone Sodium 1 gm/ (Sodium Chloride) 50 mls @ 100 mls/hr IV Q24H [facility] Last Infusion: 10/21/23 16:10 Dose: Infused Documented By: RAJ Magnesium Hydroxide (Milk Of Magnesia 30 Ml Oral.Susp) 30 ml PO DAILY PRN PRN Reason: Constipation Ondansetron HCl (Ondansetron Hcl 4 Mg/2 Ml Vial) 4 mg IVPUSH Q8H PRN PRN Reason: Nausea and Vomiting Sodium Chloride (0.9 % Sodium Chloride Flush 3 Ml Syringe) 3 ml IVFLUSH QSHIFT [facility] Last Admin: 10/21/23 15:27 Dose: Not Given Documented By: RAJ Non-Admin Reason: IV Running Labs 10/21/23 06:01 10/21/23 06:01 Labs: Laboratory Results - last 24 hr 10/21/23 06:01 MCV 89.4 MCH 29.2 MCHC 32.7 RDW 13.4 Plt Count 195 MPV 9.9 Immature Gran % (Auto) 0.2 Neut % (Auto) 60.2 Lymph % (Auto) 25.4 [place] % (Auto) 12.1 H Eos % (Auto) 1.5 Baso % (Auto) 0.6 Lymph # (Auto) 1.6 [place] # (Auto) 0.8 Eos # (Auto) 0.1 Baso # (Auto) 0.0 Abs Immat Gran (auto) 0.01 Absolute Neuts (auto) 3.7 Absolute Nucleated RBC 0.000 Nucleated RBC % (auto) 0.0 Anion Gap 9 L Estim Creat Clear Calc 46.7 Estimated GFR > 60 Random Glucose 92 Calcium 8.3 L D Total Bilirubin 0.3 AST 20 ALT 13 Alkaline Phosphatase 52 Total Protein 5.5 L Albumin 3.2 L Microbiology Microbiology Results: Microbiology 10/20/23 Unknown Urine Culture - Preliminary Urine clean catch - Urine singh top Gram negative omero Assessment and Plan (1) Syncope: Status: Acute (2) Urinary tract infection: Status: Acute Plan 83-year-old female with a history of hypertension osteoarthritis TIA with vascular dementia presents for worsening weakness over the last 3 days accompanied by mild dysuria symptoms. Orthostatic vital signs done in ER were positive; patient will be admitted for orthostasis/near-syncope in the backdrop of likely UTI 1.Orthostasis/near syncope -orthostasis resolved with volume repletion. -workup including CT head/carotid/echo all unremarkable 2. Urinary tract infection (likely secondary to active urinary sediment) -volume repletion with lactated Ringer's -ceftriaxone (2).. Preliminary culture Gram-negative rods greater than 100,000 3. Hypertension -acceptable control at present however orthostatic vital signs noted -hold lisinopril. Add back when appropriate Full code Pneumatics Patient will require ongoing hospitalization for IV antibiotics to treat UTI until organism is identified Quality Stroke Does the patient have a stroke diagnosis?: No VTE Prior VTE?: No VTE Risk Level:: Medical - moderate - high VTE Device Contraindication: N/A - Device Ordered VTE Drug Contraindication: Treatment Not Indicated
[2023-10-21] MEDS: 0.9 % Sodium Chloride Flush 3 ML SYRINGE IVFLUSH (23:14)
[2023-10-22] VITALS: BP 173/78; PULSE 73; RESP 20; TEMP 36.2; O2SAT 96
[2023-10-22 07:30] VITALS: BP 176/88; PULSE 68; RESP 18; TEMP 36.6; O2SAT 96
--- NOTE | 2023-10-22 11:47 | W.MHC.F2F ---
Service Date Service Date: 10/22/23 Encounter Date of encounter: 10/22/23 Reasons for Services Signs and symptoms assessed: Response to therapies and monitor for orthostatic hypotension Reason for intermediate: teach disease management and other (Monitor for order orthostatic hypotension) Homebound: Leaving the home is medically contraindicated at this time without the asist of a device and/or another person due th the listed conditions above and below. Reason homebound: unsteady gait / fall risk and unable to drive Certification: Based on the above findings, I certify that this patient is confined to the home and needs intermittent intermediate care, physical therapy and/or speech therapy, or continues to need occupational therapy. The patient is under my care, and I have initiated the establishment of the plan of care. The patient will be followed by a physician who will periodically review the plan of care. Time Spent With Patient Time: Total time managing care of this patient today ____ minutes.
--- NOTE | 2023-10-22 11:48 | PM.DS ---
DS: Providers Provider Date of Service: 10/22/23 Date of admission: 10/20/23 14:11 Date of discharge: 10/22/23 Primary care physician: Cole Becker MD DS: Diagnosis Discharge Diagnosis (1) Syncope: Status: Acute (2) Urinary tract infection: Status: Acute DS: Summary Hospital Course Hospital Course: 83-year-old female with past medical history significant for hypertension osteoarthritis TIA and vascular dementia presents to the emergency room with generalized weakness and lightheadedness worsening over 3 days. Discussed with daughter inpatient who states patient has been somewhat lightheaded since placed on lisinopril after her TIA; they states she has managed this with positional changes slowly and trying to maintain her fluids. She has no complaints of palpitations chest pain or shortness of breath. When further queried however she does admit to some dysuric symptoms. Urine with mildly active sediment. At this point she will be admitted for UTI dizziness Hospital course Patient admitted to general medical floor. She was aggressively volume resuscitated with lactated Ringer's. Initial workup including echo/ultrasound of carotids/CT of head failed to demonstrate any acute pathology that would be related to her near syncopal episode. Initially her urine did show active sediment for which she was started empirically on ceftriaxone. Ultimately, urine culture grew out Proteus greater than 100,000 colonies sensitive to ceftriaxone. She continued to improve and in the last 24 hours prior to discharge she was ambulatory in hallway with staff. At this point in time she will be discharged to complete a course of oral Ceftin and can follow up with Dr. Becker in the office Time Attestation Discharge Coordination Time (in mins): 35 Quality: Safe Use of Opioids Does Pt have an Active Cancer Diagnosis on the Problem List?: No Quality: Stroke Does the patient have a stroke diagnosis?: No Physical Exam Vital Signs: Vital Signs: Last Vital Signs Temp 97.8 F 10/22/23 07:30 Pulse 68 10/22/23 07:30 Resp 18 10/22/23 07:30 BP 176/88 H 10/22/23 07:30 Pulse Ox 96 10/22/23 07:30 O2 Del Method Room Air 10/22/23 07:30 BMI result Body Mass Index 19.3 Const: Other: Awake alert mildly forgetful but easily reoriented Resp: Other: Clear to auscultation bilaterally no rales rhonchi or wheezes Cardio: Other: No S4; positive S1-S2; no S3 murmurs rubs or gallops GI: Other: Soft nontender nondistended normoactive bowel sounds Neuro: Other: Cranial nerves 2-12 grossly intact as tested. Motor is 5/5 all extremities. Sensation is intact. Gait not assessed Extrem: Other: No edema bilaterally DS: Data Data Completed and Pending Labs on day of discharge: Preliminary micro results at discharge 10/20/23 Unknown Urine Culture - Preliminary Urine clean catch - Urine singh top Proteus mirabilis 10/20/23 14:58 Blood Culture - Preliminary Blood - Venous No growth after 24 hours. 10/20/23 14:49 Blood Culture - Preliminary Blood - Venous No growth after 24 hours. Discharge Plan Discharge Anticipated Discharge Date/Time: 10/22/23 11:41 Patient Disposition: Home Health Service Discharge Diagnosis: Near-syncope secondary to UTI Referrals: Cole Becker MD [Primary Care Provider] - 1 Week Discharge Medications: New cefuroxime axetil 500 mg tablet 500 mg PO BID 7 Days Qty: 14 0RF Continued lisinopril 5 mg tablet 5 mg PO BEDTIME Rx Instructions: take in the evening atorvastatin 40 mg tablet 40 mg PO BEDTIME multivitamin Tablet 1 tab PO BEDTIME aspirin 81 mg tablet,chewable 81 mg PO BEDTIME Discharge Orders: Discharge Order (Routine); Ordered 10/22/23 Ordered By: Mahendra Burgos Diet: Advance to usual diet Activity on Discharge: As tolerated Stand Alone Forms: Patient Portal Discharge page Care Plan Goals: Resume all your medicines as taken prior to hospital Health Concerns: Ceftin 500 mg twice daily for 7 days has been added for your urinary tract infection Plan of Treatment: You may resume your lisinopril and follow up with Dr. Becker next available Assessment: See discharge summary
--- NOTE | 2023-10-22 14:01 | MHC.CM.PN ---
Pt is medically cleared for D/C home with new [facility], pts daughter to transport her home.
== END 2023-10-22 13:35 | disposition home health service (06) ==
LOC: HO.ED 09:10 → HO.EDOVER 14:19 → HO.IMC 17:49
PROVIDERS: Physician Assistant Medical; Admitting Provider Hospitalist; Emergency Provider Emergency Medicine; PCP Internal Medicine; Visit Provider Hospitalist
DX: N39.0 Urinary tract infection, site not specified (principal); R55 Syncope and collapse; I10 Essential (primary) hypertension; R53.1 Weakness; R42 Dizziness and giddiness; F01.50 Vascular dementia, unspecified severity, without behavioral disturbance, psychotic disturbance, mood disturbance, and anxiety; R05.9 Cough, unspecified; R30.0 Dysuria; I44.7 Left bundle-branch block, unspecified; Z11.52 Encounter for screening for COVID-19; Z20.828 Contact with and (suspected) exposure to other viral communicable diseases
CPT/HCPCS: 0241U; 36415; 70450; 71046; 80048; 80053; 81001; 83735; 84484; 85025; 87040; 87086; 87088; 87186; 93005; 93306; 93880; 96361; 96365; 96366; 99222; 99285; J0696; J7120

== ENCOUNTER → 2023-10-20 08:58 | Outpatient (BNV) | payer MEDICARE, SELFPAY | PROVIDERS: Admitting Provider Hospitalist; Emergency Provider Emergency Medicine; PCP Internal Medicine; Visit Provider Internal Medicine Cardiovascular Disease | DX: R53.1 Weakness (principal) | CPT/HCPCS: 93010 ==

== ENCOUNTER 2023-10-20 14:11 | Outpatient (BNV) | payer MEDICARE, SELFPAY | END 2023-10-21 07:00 | PROVIDERS: Admitting Provider Hospitalist; Emergency Provider Emergency Medicine; PCP Internal Medicine; Visit Provider Internal Medicine Cardiovascular Disease | DX: I36.1 Nonrheumatic tricuspid (valve) insufficiency (principal) | CPT/HCPCS: 93306 ==

== ENCOUNTER → 2023-10-20 14:11 | Outpatient (BNV) | payer MEDICARE, SELFPAY | PROVIDERS: Admitting Provider Hospitalist; Emergency Provider Emergency Medicine; PCP Internal Medicine; Visit Provider Hospitalist | DX: R55 Syncope and collapse (principal); N39.0 Urinary tract infection, site not specified | CPT/HCPCS: 99223; 99232; 99239; G0180 ==

== ENCOUNTER 2023-11-04 15:45 | Outpatient (REF) | payer MEDICARE, SELFPAY ==
[2023-11-04 15:57] LABS: Appearance Urine Clear; Color Urine Yellow; Glucose Urine UA Negative (Negative); Leukocyte Esterase Urine Small (1+) (Negative); Nitrite Urine Negative (Negative); PH 5.5 (5.0-9.0); UMIC TRIGGER UACC YES; Urine Blood Negative (Negative); Urine Ketones Negative (Negative); Urine Protein Trace mg/dL (Neg-Trace)
[2023-11-04 16:00] LABS: Bacteria Urine None Seen (None Seen); Hyaline Casts Urine 0-2 /LPF (0-2); RBC Urine 0-2 /HPF (0-2); Squamous Epithelial Cell Urine 0-2 /HPF (0-2); UACC Culture Trigger YES
== END 2023-11-04 15:46 | disposition home or self-care (01) ==
LOC: HO.LNP 15:45
PROVIDERS: Visit Provider Internal Medicine
DX: N39.0 Urinary tract infection, site not specified (principal)
CPT/HCPCS: 81001; 87086

== ENCOUNTER 2023-11-10 23:28 | Emergency (ER) | payer MEDICARE, SELFPAY ==
--- NOTE | ~2023-11-10 | XR_ITS ---
EXAMINATION: XR HIP, RIGHT CLINICAL INFORMATION: Atraumatic pain. COMPARISON: Pelvic radiograph 06/17/2022. TECHNIQUE: Two views of the right hip. FINDINGS: Total right hip arthroplasty. No evidence of hardware failure or complication. No fractures or subluxation. Moderate deep osteoarthritis of the left hip with joint space narrowing and subcortical sclerosis. Symmetric SI joints. Pubic symphysis and pelvic rim are maintained. No significant soft tissue abnormality. XR/XR hip RT w PEL1V IMPRESSION: 1. No acute fractures or subluxation. 2. Total right hip arthroplasty without evidence of hardware failure or complication.
[2023-11-10 23:38] VITALS: BP 150/90; BP 193/76; PULSE 60; PULSE 66; RESP 16; TEMP 36.5; O2SAT 100; O2SAT 98; BMI 19.4
--- NOTE | 2023-11-10 23:47 | ED.EXTPRO ---
HPI - Extremity Problem General Chief complaint: Extremity Problem Stated complaint: right leg pain Time Seen by Provider: 11/10/23 23:47 Source: patient and family Mode of arrival: EMS Limitations: no limitations History of Present Illness HPI Narrative: Patient is status post right hip replacement but 5 years ago came here with pain in the right hip on the lateral aspect started just prior to arrival patient was walking earlier in a charge drove home and noticed severe pain in the right lateral aspect of thigh have difficulty in ambulating because of pain Related Data Home Medications ?Medication ?Instructions ?Recorded ?Confirmed atorvastatin 40 mg tablet 40 mg PO BEDTIME 04/26/20 10/20/23 lisinopril 5 mg tablet 5 mg PO BEDTIME 04/26/20 10/20/23 multivitamin 1 tab PO BEDTIME 04/26/20 10/20/23 aspirin 81 mg chewable tablet 81 mg PO BEDTIME 10/23/20 10/20/23 Previous Rx's ?Medication ?Instructions ?Recorded cefuroxime axetil 500 mg tablet 500 mg PO BID 7 days #14 tabs 10/22/23 ibuprofen 600 mg tablet 600 mg PO Q6H PRN fever or pain 11/11/23 #30 tabs Allergies Allergy/AdvReac Type Severity Reaction Status Date / Time oxycodone Allergy Intermediate Confusion Verified 11/10/23 23:42 Review of Systems Review of Systems: Yes all other systems are reviewed and are negative [facility] Past Medical History Medical History Arthritis TIA (transient ischemic attack) COVID-19 vaccine administered Pre-diabetes History of anesthesia complications Dementia Osteoarthritis LBBB (left bundle branch block) Syncope HTN (hypertension) Surgical History History of esophagogastroduodenoscopy (EGD) Hx of cataract surgery History of total right hip arthroplasty Hx of colonoscopy History of appendectomy History of tonsillectomy and adenoidectomy History of hysterectomy Family History Family History Father No problems noted. Mother Brain tumor Sister No problems noted. Daughter No problems noted. Son No problems noted. Son No problems noted. Social History Social History Household Members: None Housing: Apartment Are you a primary animal caregiver to a significant other at home: No Do you presently have visiting nurse or other home services: No Alcohol intake: never Patient Tobacco Use Status: Never used Tobacco Advance Directives: No Advance Directives Information Provided: No Do you have a plan to hurt others: No Plan service: No Current occupational status: retired 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 Physical Exam Vital Signs: Vital Signs: Last Vital Signs Temp 97.7 F 11/10/23 23:38 Pulse 66 11/10/23 23:38 Resp 16 11/10/23 23:38 BP 193/76 H 11/10/23 23:38 Pulse Ox 100 11/10/23 23:38 O2 Del Method Room Air 11/10/23 23:38 BMI result Body Mass Index 19.4 Appearance: Alert. Oriented X3. No acute distress. ENT: Pharynx normal. Oral Mucosa moist Neck: Normal inspection. Neck supple. CVS: Normal heart rate and rhythm. Pulses normal. Respiratory: No respiratory distress. Equal air entry bilateral, Abdomen: Soft and nontender. Bowel sounds are present, no mass palpable, no CVA tenderness Skin: Skin warm and dry. Normal skin color. Normal skin turgor. Extremities: No lower extremity edema. No calf tenderness tenderness at right greater trochanteric area no groin pain good range of movement Neuro: Oriented X 3. No motor deficit. No sensory deficit.No cerebellar signs , cranial nerves II-XII intact Medications Administered Discontinued Medications Generic Name Dose Route Start Last Admin Trade Name Freq PRN Reason Stop Dose Admin Lidocaine HCl 5 ml 11/11/23 00:46 11/11/23 00:56 Lidocaine Hcl 1 % Mpf 5 Ml Vial INFILTRATI 11/11/23 00:47 5 ml ONCE ONE Administration Medical Decision Making Medical Decision Making MDM Narrative: Patient's right greater trochanteric bursitis no signs of infection x-ray negative for any fracture local infiltration of lidocaine 5 cc of 1% was injected at right greater trochanteric area, patient felt much better able to ambulate will discharge patient home advised to take ibuprofen Differential Diagnosis Differential Diagnoses: The differential diagnosis associated with the presentation includes Iliotibial syndrome/greater trochanteric/hip fracture Procedures Procedure Narrative Procedure Narrative: Right trochanteric bursa injection of lidocaine under aseptic condition using iodine part was cleaned 5 cc of 1% lidocaine was injected at right trochanteric bursa patient felt much better able to ambulate after the procedure Discharge Plan Discharge Clinical Impression: Greater trochanteric bursitis of right hip Patient Disposition: Home, Self-Care Instructions: Hip Bursitis (ED) Additional Instructions: Take ibuprofen for pain Apply ice Prescriptions: New ibuprofen 600 mg tablet 600 mg PO Q6H PRN (Reason: fever or pain) Qty: 30 0RF No Action cefuroxime axetil 500 mg tablet 500 mg PO BID 7 Days Qty: 14 0RF lisinopril 5 mg tablet 5 mg PO BEDTIME Rx Instructions: take in the evening atorvastatin 40 mg tablet 40 mg PO BEDTIME multivitamin Tablet 1 tab PO BEDTIME aspirin 81 mg tablet,chewable 81 mg PO BEDTIME Print Language: Citizen Of [place]
[2023-11-11] MEDS: Lidocaine HCl 1 % MPF 5 ML VIAL INFILTRATI (00:56)
--- NOTE | 2023-11-11 01:01 | PC.NURSE ---
Pt is able to ambulate independently with steady gait. Reports minimal pain at this time.
[2023-11-11 01:12] VITALS: BP 164/76; PULSE 58; RESP 14; TEMP 36.6; O2SAT 97
[2023-11-11 01:20] VITALS: BP 164/76; PULSE 58; RESP 14; TEMP 36.6; O2SAT 97
== END 2023-11-11 01:27 | disposition home or self-care (01) ==
PROVIDERS: Emergency Provider Internal Medicine
DX: M70.61 Trochanteric bursitis, right hip (principal); I10 Essential (primary) hypertension; F03.90 Unspecified dementia, unspecified severity, without behavioral disturbance, psychotic disturbance, mood disturbance, and anxiety; Z86.73 Personal history of transient ischemic attack (TIA), and cerebral infarction without residual deficits
CPT/HCPCS: 20610; 73502; 99284

== ENCOUNTER 2023-11-25 11:08 | Outpatient (REF) | payer MEDICARE, SELFPAY ==
[2023-11-25 11:16] LABS: MANUAL DIFF FLAG NO
[2023-11-25 11:37] LABS: Appearance Urine Clear; Color Urine Straw; Glucose Urine UA Negative (Negative); Leukocyte Esterase Urine Small (1+) (Negative); Nitrite Urine Negative (Negative); PH 6.5 (5.0-9.0); UMIC TRIGGER UACC YES; Urine Blood Negative (Negative); Urine Ketones Negative (Negative); Urine Protein Negative (Neg-Trace)
[2023-11-25 11:56] LABS: Basophils Absolute Auto 0.1 X10*3/uL (0.0-0.2); Basophils Percent Auto 0.8 % (0-2); Eosinophils Absolute Auto 0.2 X10*3/uL (0.0-0.4); Eosinophils Percent Auto 2.8 % (0-4); Hematocrit 38.4 % (37.0-47.0); Hemoglobin 12.5 g/dl (12.0-16.0); Imm Gran Abs Auto 0.01 X10*3/uL (0.00-0.03); Imm Gran Pct Auto 0.2 % (0.0-0.4); Lymphocytes Absolute Auto 1.8 X10*3/uL (1.2-4.9); Lymphocytes Percent Auto 30.4 % (20-40); Mean Corpuscular HGB Conc 32.6 g/dl (31.0-35.0); Mean Corpuscular Hemoglobin 29.1 pg (27.0-33.0); Mean Corpuscular Volume 89.3 fL (80.0-98.0); Mean Platelet Volume 10.7 fL (9.4-12.3); Monocytes Absolute Auto 0.5 X10*3/uL (0.1-1.2); Monocytes Percent Auto 8.3 % (2-11); Neutrophils Absolute Auto 3.4 x10*3/uL (2.0-8.3); Neutrophils Percent Auto 57.5 % (45-73); Platelet Count 262 X10*3/uL (160-400); Red Cell Distribution Width 13.8 % (11.0-16.0)
[2023-11-25 12:08] LABS: Estimated Average Glucose 117 mg/dL; Hemoglobin A1c % 5.7 % (<6.0)
[2023-11-25 12:13] LABS: RBC Urine 0-2 /HPF (0-2); Squamous Epithelial Cell Urine 0-2 /HPF (0-2); UACC Culture Trigger YES; WBC Urine 0-5 /HPF (0-5)
[2023-11-25 12:14] LABS: Alanine Aminotransferase 17 U/L (0-31); Alkaline Phosphatase 65 U/L (39-117); Anion Gap 13 (12-20); Aspartate Amino Transferase 26 U/L (5-31); Bacteria Urine None Seen (None Seen); Bilirubin Total 0.5 mg/dL (0.0-1.0); Blood Urea Nitrogen 19 mg/dL (9-16); Calcium 9.4 mg/dL (8.4-10.2); Carbon Dioxide 25 mmol/L (22-29); Chloride 100 mmol/L (96-108); Cholesterol 159 mg/dL (<200); Estimated Glomerular Filt Rate > 60; Glucose Fasting 61 mg/dL (60-99); HDL Cholesterol 54 mg/dL (>40); Hyaline Casts Urine 0-2 /LPF (0-2); Iron 76 mcg/dL (30-160); LDL Cholesterol Calculated 86 mg/dL (<100); Percent Iron Saturation 27 % (15-50); Potassium 4.3 mmol/L (3.3-5.1); Renal Epithelial Cells Urine Present; Sodium 134 mmol/L (135-145); Total Iron Binding Capacity 280 mcg/dL (228-428); Triglycerides 96 mg/dL (<150); Unsaturated Iron Binding 204 ug/dL
[2023-11-25 12:17] LABS: Vitamin D 25-OH Total 60.7 ng/mL (>30)
[2023-11-25 12:24] LABS: Creatinine Urine 63.24 mg/dL; Microalbum/Creatinine Ratio Ur 45.8 ug/mg cr (<30)
== END 2023-11-25 11:09 | disposition home or self-care (01) ==
LOC: HO.LNP 11:08
PROVIDERS: Visit Provider Internal Medicine
DX: Z00.00 Encounter for general adult medical examination without abnormal findings (principal); R73.03 Prediabetes; E55.9 Vitamin D deficiency, unspecified; E78.00 Pure hypercholesterolemia, unspecified; D50.8 Other iron deficiency anemias
CPT/HCPCS: 80053; 80061; 81001; 82043; 82306; 82570; 83036; 83540; 85025; 87086

== ENCOUNTER 2024-05-21 19:51 | Emergency (ER) | payer MEDICARE, SELFPAY ==
--- NOTE | ~2024-05-21 | XR_ITS ---
EXAMINATION: XR HIP, RIGHT CLINICAL INFORMATION: Atraumatic right hip pain COMPARISON: 11/11/2023 TECHNIQUE: AP upright, AP supine, and frog-leg lateral views of the right hip. FINDINGS: Prosthetic components of the right total hip arthroplasty are appropriately aligned without periprosthetic fracture or abnormal lucency. No component migration. Soft tissues are normal. Moderate degenerative change in the left hip. XR/XR hip RT w PEL1V IMPRESSION: Appropriate alignment of the right total hip arthroplasty without evidence of complications. Electronically signed by: Ignacio Cisneros MD 05/21/2024 09:12 PM EDT
[2024-05-21 20:00] VITALS: BP 179/77; PULSE 67; O2SAT 100
[2024-05-21 20:22] VITALS: BP 166/69; PULSE 67; RESP 16; TEMP 36.7; O2SAT 95
--- NOTE | 2024-05-21 20:24 | ED_ITS ---
HPI - Extremity Injury (Lower) General Chief Complaint: Extremity Problem Stated Complaint: R thigh pain since 1700 Time Seen by Provider: 05/22/24 01:08 Source: patient Mode of arrival: ambulatory Limitations: no limitations History of Present Illness ED Provider: freeman GOMEZ Narrative: Patient complaining of pain in the right side of the leg since earlier today no fall no direct trauma no skin color changes Related Data Home Medications ?Medication ?Instructions ?Recorded ?Confirmed atorvastatin 40 mg tablet 40 mg PO BEDTIME 04/26/20 10/20/23 lisinopril 5 mg tablet 5 mg PO BEDTIME 04/26/20 10/20/23 multivitamin 1 tab PO BEDTIME 04/26/20 10/20/23 aspirin 81 mg chewable tablet 81 mg PO BEDTIME 10/23/20 10/20/23 Previous Rx's ?Medication ?Instructions ?Recorded cefuroxime axetil 500 mg tablet 500 mg PO BID 7 days #14 tabs 10/22/23 ibuprofen 600 mg tablet 600 mg PO Q6H PRN fever or pain 11/11/23 #30 tabs ibuprofen 400 mg tablet 400 mg PO Q6H PRN pain #20 tabs 05/22/24 lidocaine 4 % topical patch 1 patch topical DAILY PRN pain #10 05/22/24 (Salonpas (lidocaine)) ea Allergies Allergy/AdvReac Type Severity Reaction Status Date / Time oxycodone Allergy Intermediate Confusion Verified 05/21/24 20:25 Review of Systems 2 Review of Systems: Yes all other systems are reviewed and are negative PMFSH Past Medical History Medical History Arthritis TIA (transient ischemic attack) COVID-19 vaccine administered Pre-diabetes History of anesthesia complications Dementia Osteoarthritis LBBB (left bundle branch block) Syncope HTN (hypertension) Surgical History History of esophagogastroduodenoscopy (EGD) Hx of cataract surgery History of total right hip arthroplasty Hx of colonoscopy History of appendectomy History of tonsillectomy and adenoidectomy History of hysterectomy Family History Family History Father No problems noted. Mother Brain tumor Sister No problems noted. Daughter No problems noted. Son No problems noted. Son No problems noted. Social History Social History Household Members: None Housing: Apartment Are you a primary school childcare attendant to a significant other at home: No Do you presently have visiting nurse or other home services: No Unable to assess alcohol history related to: Unknown Alcohol intake: never Patient Tobacco Use Status: Never used Tobacco Use of substances other than those prescribed or required for medical reasons: Unknown Advance Directives: No Advance Directives Information Provided: No service: No Current occupational status: retired 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 Physical Exam 2 Vital Signs: Vital Signs: Last Vital Signs Temp 97.8 F 05/22/24 00:52 Pulse 66 05/22/24 00:52 Resp 20 05/22/24 00:52 BP 168/76 H 05/22/24 00:52 Pulse Ox 98 05/22/24 00:52 O2 Del Method Room Air 05/22/24 00:52 BMI result Body Mass Index 20.0 Extrem: Upper/lower leg/hip images: 1. Tenderness the right iliotibial band area no skin discoloration good range of movement hip joint without any pain patient ambulatory without any significant pain Course Course Course Narrative: This is a Rapid Medical Examination (RME) performed by Rhoda Sharp PA-C in triage. Full HPI, ROS, assessment and treatment plan per primary provider in the Main ED. 83 yo female hx of HTN, OA, s/p right hip replacement here via EMS from home for eval of right hip pain extending down her right leg. hx of bursitis in the past. 8/10 at onset, now /10. no otc pain meds [employer]ISHING [employer]. no injury/ trauma/ falls. Plan: xr Medical Decision Making Medical Decision Making MDM Narrative: Patient with right lateral thigh pain clinically iliotibial syndrome x-ray of the hip is negative Discharge Plan Discharge Clinical Impression: Iliotibial band syndrome affecting right lower leg Patient Disposition: Home, Self-Care Instructions: Iliotibial Band Syndrome (ED) Additional Instructions: Rest your right leg Take ibuprofen for pain as prescribed Apply Lidoderm patch daily until gets better Prescriptions: New ibuprofen 400 mg tablet 400 mg PO Q6H PRN (Reason: pain) Qty: 20 0RF lidocaine [Salonpas (lidocaine)] 4 % adhesive patch,medicated 1 patch topical DAILY PRN (Reason: pain) Qty: 10 0RF Rx Instructions: Apply at painful area for 12 hours a day then removed No Action cefuroxime axetil 500 mg tablet 500 mg PO BID 7 Days Qty: 14 0RF ibuprofen 600 mg tablet 600 mg PO Q6H PRN (Reason: fever or pain) Qty: 30 0RF lisinopril 5 mg tablet 5 mg PO BEDTIME Rx Instructions: take in the evening atorvastatin 40 mg tablet 40 mg PO BEDTIME multivitamin Tablet 1 tab PO BEDTIME aspirin 81 mg tablet,chewable 81 mg PO BEDTIME Interventions: ED Discharge Assessment Last Done: 05/22/24 01:23 Print Language: Macanese
[2024-05-22 00:52] VITALS: BP 168/76; PULSE 66; RESP 20; TEMP 36.6; O2SAT 98
--- NOTE | 2024-05-22 01:17 | PC.NURSE ---
MD to bedside for primary eval, cleared for dc home after med.
[2024-05-22] MEDS: Ibuprofen 400 MG TABLET PO (01:22)
[2024-05-22 01:23] VITALS: BP 168/76; PULSE 66; RESP 20; TEMP 36.6; O2SAT 98
== END 2024-05-22 01:27 | disposition home or self-care (01) ==
PROVIDERS: Emergency Provider Internal Medicine; PCP Internal Medicine
DX: M76.31 Iliotibial band syndrome, right leg (principal); M25.551 Pain in right hip
CPT/HCPCS: 73502; 99283; 99284

== ENCOUNTER 2024-05-27 11:01 | Outpatient (REF) | payer MEDICARE, SELFPAY ==
[2024-05-27 11:20] LABS: Alanine Aminotransferase 15 U/L (0-31); Albumin Level 4.1 g/dL (3.5-5.0); Alkaline Phosphatase 76 U/L (39-117); Aspartate Amino Transferase 30 U/L (5-31); Bilirubin Direct 0.2 mg/dL (0.0-0.5); Bilirubin Total 0.5 mg/dL (0.0-1.0); Cholesterol 231 mg/dL (<200); Glucose Fasting 90 mg/dL (60-99); HDL Cholesterol 63 mg/dL (>40); LDL Cholesterol Calculated 150 mg/dL (<100); Triglycerides 93 mg/dL (<150)
[2024-05-27 11:37] LABS: Estimated Average Glucose 114 mg/dL; Hemoglobin A1C 129.7062 umol/L; Hemoglobin A1c % 5.6 % (<6.0); Total Hemoglobin (HGBA1C) 3486.0202 umol/L
== END 2024-05-27 11:02 | disposition home or self-care (01) ==
LOC: HO.LNP 11:01
PROVIDERS: Visit Provider Internal Medicine
DX: R73.09 Other abnormal glucose (principal); E78.00 Pure hypercholesterolemia, unspecified
CPT/HCPCS: 80061; 80076; 82947; 83036

== ENCOUNTER 2024-09-03 12:37 | Emergency (ER) | payer MEDICARE, SELFPAY ==
--- NOTE | ~2024-09-03 | XR_ITS ---
EXAMINATION: XR LUMBAR SPINE 2-3 VIEWS HISTORY: R lumbar/hip pain COMPARISON: There are no prior studies for comparison. FINDINGS: AP, lateral, and coned down views of the lumbar spine are submitted. The bones are osteopenic. There is moderate levoscoliosis. The vertebral bodies maintain normal height without evidence of fracture. There is grade I spondylolisthesis of L4 on L5. There is mild degenerative disc disease with disc space narrowing and osteophyte formation. 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 There is calcification of the abdominal aorta. XR/XR lumbar spine 2-3V IMPRESSION: Moderate levoscoliosis. Grade I spondylolisthesis of L4 on L5. Degenerative changes as described. Electronically signed by: Ignacio Ramires MD 09/03/2024 01:53 PM EST
[2024-09-03 12:54] VITALS: BP 148/80; BP 182/86; PULSE 56; PULSE 66; RESP 18; TEMP 36.6; O2SAT 100; BMI 20.6
--- NOTE | 2024-09-03 12:59 | ED_ITS ---
HPI - General Adult General Chief complaint: General Medical Stated complaint: R LEG PAIN/DIZZY PER EMS Time Seen by Provider: 09/03/24 12:59 Source: patient, family, EMS, RN notes reviewed and old records reviewed Mode of arrival: EMS Limitations: no limitations History of Present Illness ED Provider: Jazzy HPI narrative: Patient is an 83-year-old female with history of TIA, HTN, LBBB, mild dementia, osteoarthritis, total right hip arthroplasty presenting to the emergency department with complaint of sudden onset right hip pain with associated lightheadedness. 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 States she became lightheaded due to the severity of the pain, has had similar episodes in the past and states pain feels the same. Has seen ortho for this, was determined that pain is due to lumbar radiculopathy which improved with steroids. Denies any saddle anesthesia or bowel or bladder incontinence. Denies recent fall or other trauma. Denies chest pain, dyspnea, or palpitations. Denies headache or changes in vision. MD complaint: right hip pain Onset (ago): minute(s) Quality: aching Pain Consistency: colicky Relieving factors: rest Exacerbating factors: movement Treatments prior to arrival: none Related Data Home Medications ?Medication ?Instructions ?Recorded ?Confirmed atorvastatin 40 mg tablet 40 mg PO BEDTIME 04/26/20 10/20/23 lisinopril 5 mg tablet 5 mg PO BEDTIME 04/26/20 10/20/23 multivitamin 1 tab PO BEDTIME 04/26/20 10/20/23 aspirin 81 mg chewable tablet 81 mg PO BEDTIME 10/23/20 10/20/23 Previous Rx's ?Medication ?Instructions ?Recorded cefuroxime axetil 500 mg tablet 500 mg PO BID 7 days #14 tabs 10/22/23 ibuprofen 600 mg tablet 600 mg PO Q6H PRN fever or pain 11/11/23 #30 tabs ibuprofen 400 mg tablet 400 mg PO Q6H PRN pain #20 tabs 05/22/24 lidocaine 4 % topical patch 1 patch topical DAILY PRN pain #10 05/22/24 (Salonpas (lidocaine)) ea lidocaine 5 % topical patch 1 patch topical DAILY #15 ea 09/03/24 prednisone 20 mg tablet 20 mg PO DAILY #5 tabs 09/03/24 tramadol 50 mg tablet 50 mg PO TID PRN severe pain 09/03/24 (scale score 7-10) #8 tabs Allergies Allergy/AdvReac Type Severity Reaction Status Date / Time oxycodone Allergy Intermediate Confusion Verified 09/03/24 12:57 Review of Systems Review of Systems: As per HPI. Yes all other systems are reviewed and are negative Constitutional: Constitutional: Reports as per HPI PMFSH Past Medical History Medical History Arthritis TIA (transient ischemic attack) COVID-19 vaccine administered Pre-diabetes History of anesthesia complications Dementia Osteoarthritis LBBB (left bundle branch block) Syncope HTN (hypertension) Surgical History History of esophagogastroduodenoscopy (EGD) Hx of cataract surgery History of total right hip arthroplasty Hx of colonoscopy History of appendectomy History of tonsillectomy and adenoidectomy History of hysterectomy Family History Family History Father No problems noted. Mother Brain tumor Sister No problems noted. Daughter No problems noted. Son No problems noted. Son No problems noted. Social History Social History Household Members: None Housing: Apartment Are you a primary farm or ranch animal caretaker to a significant other at home: No Do you presently have visiting nurse or other home services: No Unable to assess alcohol history related to: Unknown Alcohol intake: never Patient Tobacco Use Status: Never used Tobacco Smoked in Last 30 Days: No Use of substances other than those prescribed or required for medical reasons: No Advance Directives: No Advance Directives Information Provided: Yes Do you have a plan to hurt others: No Plan service: No Current occupational status: retired 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 Blood pressure elevated. Heart rate normal. Respiratory rate normal. Temperature normal. Oxygen saturation normal. Const General: cooperative, healthy appearing and no acute distress Orientation/consciousness: oriented to person, oriented to place, oriented to time and patient oriented x3 Limitations: no limitations HENPR Head: Yes normocephalic and Yes atraumatic Ears: external ears normal General nose exam: Normal external nose present Face and sinus: Yes face symmetric Mouth: oropharynx normal and moist mucous membranes Throat: Yes uvula midline Eyes Pupils: Equal, round and reactive pupils present Neck Neck: Yes normal visual inspection and Yes supple Resp Effort & Inspection: normal respiratory effort and able to speak in complete sentences Auscultation: clear to auscultation bilaterally Cardio Rate: regular rate Rhythm: regular rhythm Heart sounds: S1 normal heart sound present and S2 normal heart sound present GI Palpation (GI): Soft to palpation and nontender Auscultation: normoactive bowel sounds General: Yes no CVA tenderness Back/Spine/Pelvis Back: no CVA tenderness Thoracic/Lumbar Spine: thoracic and lumbar spine normal to inspection, pain with thoraco-lumbar ROM, No thoracic spinal tenderness, No lumbar spinal tenderness and straight leg raise positive right Pelvis: no pain with anterior-posterior compression and no pain with lateral compression Skin General skin exam: elasticity normal and turgor normal Neuro General: oriented to person, oriented to place, oriented to time, patient oriented x3, moves all extremities, no focal motor deficits and CN's II-XI intact bilaterally Cranial nerves: Yes Equal, round and reactive pupils present Cognition (Neuro): normal cognition Extrem General: Yes full ROM, Yes no pedal edema and Yes no calf tenderness Right lower extremity: hip/thigh Details: normal to inspection and normal ROM (increased pain with ROM); no ecchymosis, no deformity and no unusual warmth and foot Details: normal capillary refill and vascular exam Details: dorsalis pedis pulse present, posterior tibial pulse present and normal capillary refill Psych Mental Status: mental status grossly normal Affect: normal affect Thought process: Normal thought process present Medications Administered Discontinued Medications Generic Name Dose Route Start Last Admin Trade Name Freq PRN Reason Stop Dose Admin Ketorolac Tromethamine 30 mg 09/03/24 13:13 09/03/24 13:50 Ketorolac Tromethamine 30 Mg/Ml Vial IM 09/03/24 13:14 30 mg ONCE ONE Administration Lidocaine 1 patch 09/03/24 14:46 02/14/25 15:11 Lidocaine 4 % Patch Adh..Patch TRANSDERMA 09/03/24 14:47 1 patch ONCE ONE Administration Protocol Prednisone 40 mg 09/03/24 13:11 09/03/24 13:50 Prednisone 20 Mg Tablet PO 09/03/24 13:12 40 mg ONCE ONE Administration Tramadol HCl 50 mg 09/03/24 14:45 09/03/24 15:11 Tramadol Hcl 50 Mg Tablet PO 09/03/24 14:46 50 mg ONCE ONE Administration Medical Decision Making Medical Decision Making [facility] Narrative: Patient is an 83-year-old female with history of TIA, HTN, LBBB, mild dementia, osteoarthritis, total right hip arthroplasty presenting to the emergency department with complaint of sudden onset right hip pain with associated lightheadedness. On exam patient is awake, A+Ox3, BP elevated, VS otherwise WNL, afebrile, normal neurological exam without focal deficits, physical exam findings as above. Given reported symptoms and physical exam findings, initial differential includes but is not limited to lumbar radiculopathy, bursitis. Unlikely fracture as patient denies trauma. Do not suspect septic joint. X-ray lumbar spine notable for moderate levoscoliosis, grade I spondylolisthesis of L4 on L5. My interpretation is in agreement with the radiologist's interpretation. Patient denies any relief from prednisone and Toradol. She has documented adverse reaction to oxycodone of confusion, states she does not want any similar medications, but states her pain is not currently well controlled. Through shared decision making with patient and family, will try tramadol and reassess. Patient reports some improvement in pain after Tramadol. She states that she feels comfortable with discharge home. Daughter, Anusha, states that she will be staying with patient. Will prescribe a few Tramadol for severe pain but discussed with Anusha that she will need to stay with patient if she is taking these, as this can increase her risk for falls. Will also discharge patient on course of prednisone to decrease inflammation and topical lidocaine patches. Will refer to ortho for further management. Return precautions discussed at bedside. Patient and daughter verbalized understanding of and agreement with plan. Differential Diagnosis Differential Diagnoses: The differential diagnosis associated with the presentation includes As per MDM Admission/Observation Consideration of admission/observation: Escalation of care including admission/observation considered Patient would have been admitted to the hospital had their work up had any findings where hospital admission was appropriate and their clinical presentation warranted hospital admission. Independent Interpretation I performed an independent interpretation of an: EKG (sinus bradycardia with LBBB, rate 57 bpm, normal DE interval and QTc) and Plain X-Ray Interpretation: Lumbar x-ray notable for moderate levoscoliosis, grade 1 spondylolisthesis of L4 on L5. Radiology Impression Radiologist Impression: EXAMINATION: XR LUMBAR SPINE 2-3 VIEWS HISTORY: R lumbar/hip pain COMPARISON: There are no prior studies for comparison. FINDINGS: AP, lateral, and coned down views of the lumbar spine are submitted. The bones are osteopenic. There is moderate levoscoliosis. The vertebral bodies maintain normal height without evidence of fracture. There is grade I spondylolisthesis of L4 on L5. There is mild degenerative disc disease with disc space narrowing and osteophyte formation. 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 There is calcification of the abdominal aorta. XR/XR lumbar spine 2-3V IMPRESSION: Moderate levoscoliosis. Grade I spondylolisthesis of L4 on L5. Degenerative changes as described. Independent Historian Clinical information obtained from an independent historian. History obtained from or confirmed by: Other (daughter, Anusha) External Record Review External record reviewed: Inpatient record, Office record and Outpatient record Prescription Management I considered prescription management with: Pain Medication Critical Care Time Critical Care Time Critical Care Time: Yes Total Critical Care Time: 35 Attestation: I have personally provided critical care time exclusive of time spent on separately billable procedures. Time includes review of lab data, radiology results, discussion with consultants, and monitoring for potential decompensation. Intervention performed as documented. Discharge Plan Discharge Clinical Impression: Hip pain, right Patient Disposition: Home, Self-Care Instructions: Lumbar Radiculopathy (ED), Hip Pain (ED) Additional Instructions: You were evaluated in the emergency department today for right hip pain. We recommend that you follow up with orthopedics for further evaluation and management. You are being prescribed a few Tramadol for severe pain. You are also bring prescribed a short course of prednisone which is a steroid to decrease inflammation. You are being prescribed topical lidocaine patches which you can wear for up tp 12 hours in a 24 hour period. Do not apply heat over the patches. Follow up with your PCP as well. Return to the emergency department with new or worsening symtoms. Prescriptions: New tramadol 50 mg tablet 50 mg PO TID PRN (Reason: severe pain (scale score 7-10)) Qty: 8 0RF prednisone 20 mg tablet 20 mg PO DAILY Qty: 5 0RF lidocaine 5 % adhesive patch,medicated 1 patch topical DAILY Qty: 15 0RF Rx Instructions: leave on most painful area for up to 12 hrs No Action cefuroxime axetil 500 mg tablet 500 mg PO BID 7 Days Qty: 14 0RF ibuprofen 600 mg tablet 600 mg PO Q6H PRN (Reason: fever or pain) Qty: 30 0RF ibuprofen 400 mg tablet 400 mg PO Q6H PRN (Reason: pain) Qty: 20 0RF lidocaine [Salonpas (lidocaine)] 4 % adhesive patch,medicated 1 patch topical DAILY PRN (Reason: pain) Qty: 10 0RF Rx Instructions: Apply at painful area for 12 hours a day then removed lisinopril 5 mg tablet 5 mg PO BEDTIME Rx Instructions: take in the evening atorvastatin 40 mg tablet 40 mg PO BEDTIME multivitamin Tablet 1 tab PO BEDTIME aspirin 81 mg tablet,chewable 81 mg PO BEDTIME Referrals: [facility] [place] [facility] [Provider Group] Print Language: Belgian
--- OUTSIDE RECORDS SUMMARY | 2024-09-03 13:29 | XMS_ITS ---
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 with home health services [facility] 06/10/2019 01:36 pm EST - 06/21/2019 11:28 am EST Immunizations Vaccine Date Influenza TB 2 Step Mantoux Skin Test 06/11/2019 1 2:00 pm EST PCV13 (Pneumococcal Conjugate)Vaccine Social History
--- OUTSIDE RECORDS SUMMARY | 2024-09-03 13:29 | XMS_ITS ---
Author Organization Cole Becker MD Address [address] [place] [phone] Care Team Providers Care Project Management Consultant Name Role Phone Cole Becker Primary Care Provider [phone] Allergies No Known Allergies Results Component Value Reference Range Notes Occult Blood, Stool, Guaiac Reviewed date:12/02/2023 02:00:42 PM Interpretation:Negative Performing Lab: Notes/Report: Negative Occult Blood, Stool, Guaiac Neg REASON FOR VISIT annual visit, No Covid symptoms, Cologuard order has , Accompanied by daughter Anusha Medications Medication SIG (Take, Route, Frequency, Duration) Notes Start Date End Date Status Cyclobenzaprine HCl 5 MG 1 tablet as nee ded Orally two times per day for 10 days 10/26/2018 Not-Taking Vitamin D-3 1000 UNIT 1 capsule Orally O nce a day for 30 day(s) 08/23/2017 Not-Taking Ambien 5 MG 1 tablet at bedtime Orally Once a day as needed for 10 days 03/16/2021 Not-Taking Ibuprofen 600 MG 1 tablet with food o r milk as needed Orally Three times a day for 30 days 06/09/2023 Not-Taking Ibuprofen 200 MG 1 tablet with food o r milk as needed Orally Three times a day Not-Taking Atorvastatin Calcium 40 MG TAKE 1 TABLET BY MOUTH EVERY DAY Orally Once a day for 90 days Active Aspirin Low Dose 81 MG TAKE 1 TABLET BY MOUTH EVERY DAY for 90 Active Lisinopril 5 MG TAKE 1 TABLET BY MOUTH EVERY DAY for 90 Active Multi Vitamin/Minerals as directed Orally Active Social History Tobacco Use: Social History Observation Description Date Details (start date - stop date) Never Smoker NA - NA Tobacco Use/Smoking Question Answer Notes Patient is a nonsmoker Additional Findings: Tobacco Non-User Cu rrent non-smoker, currently using no form of tobacco Alcohol Screen Question Answer Notes Did you have a drink containing alcohol in the p ast year? No Points 0 Interpretation Negative Vital Signs Blood pressure systolic 122 mm Hg 12/02/19 24 Blood pressure diastolic 66 mm Hg 024 Height 65.5 in 12/02/2023 Weight 123 lbs 12/02/2023 BMI 20.15 kg/m2 12/02/2023 weight is down 3 pounds [facility] 11-09- Encounters Encounter Location Date Provider Diagnosis Cole Becker MD [address] [place] [address] [place] [phone] 12/02/2023 Cole Becker Encounter for screening for malignant neoplasm of colon Z12.11 ; Encounter for screening for malignant neoplasm of rectum Z12.12 ; MCI (mild cognitive impairment) G31.84 ; Essential hypertension I10 ; Prediabetes R73.09 ; Elevated LDL cholesterol level E78.00 and Depression screening Z13.31 Assessments Encounter Date Diagnosis (ICD Code) Assessment Notes Treatment Notes Treatment Clinical Notes Section Notes 12/02/2023 Encounter for screening for malignant neoplasm of colon (ICD-10 - Z12.11) cologuard order faxed to [facility] 12/02/2023 Encounter for screening for malignant neoplasm of rectum (ICD-10 - Z12.12) 12/02/2023 MCI (mild cognitive impairment) (ICD-10 - G31.84) getting a little worse, will continue to monitor 12/02/2023 Essential hypertension (ICD-10 - I10) well controlled, will continue current regiment 12/02/2023 Prediabetes (ICD-10 - R73.09) stable, no need for medication at this time 12/02/2023 Elevated LDL cholesterol level (ICD-10 - E78.00) stable, will continue current regiment 12/02/2023 Depression screening (ICD-10 - Z13.31) negative screen Plan Of Treatment Treatment Notes Assessment Notes Encounter for screening for malignant neoplasm of colon cologuard order faxed to [facility] negative MCI (mild cognitive impairment) getting a little worse, will continue to monitor Essential hypertension well controlled, will continue current regiment Prediabetes stable, no need for medication at this time Elevated LDL cholesterol level stable, w ill continue current regiment Depression screening negative screen Next Appt Details Provider Name:Cole rivera, 11/30/2024 07:00:00 AM, [address], [address], [place], [place], [phone], Provider Name:Cole rivera, 12/07/2024 01:00:00 PM, [address], [address], [place], [place], [phone], Progress Notes * Nicky WEBER FDOB:[birth year] (83 yo F)Acc No.[id number]:12/02/2023 Progress Notes Patient:?Nicky Weber Provider:?Cole Becker MD :1940???Age:83 Y???Sex:Female D ate:12/02/2023 Address:[address] [place] [address] [address], [place], [id number] Subjective: * Chief Complaints: * ???Annual visitNo Covid symp tomsCologuard order has expiredAccompanied by daughter Anusha * HPI: ???Depression Screening:?PHQ-9?Little interest or pleasure in doing things?Not at all,?Feeling down, depressed, or hopeless?Not at all,?Trouble falling or staying asleep, or sleeping too much?Not at all,?Feeling tired or having little energy?Not at all,?Poor appetite or overeating?Not at all,?Feeling bad about yourself or that you are a failure, or have let yourself or your family down?Not at all,?Trouble concentrating on things, such as reading the newspaper or watching television?Not at all,?Moving or speaking so slowly that other people could have noticed; or the opposite, being so fidgety or restless that you have been moving around a lot more than usual?Not at all,?Thoughts that you would be better off or of hurting yourself in some way?Not at all,?Total Score?0.?Interpretation and Intervention?Depression Screening Findings?Negative,?Follow-Up for Depression?: review of PHQ-9 found negative result, no follow-up needed.?Communication Needs:?Communication Needs?Does the patient have a hearing impairment?No,?Does the patient have a vision impairment??Yes,?If yes, what is the vision impairment??Glasses,?Does the patient have a cognition impairment??Yes.?Fall Risk:?History?Have you had any falls with injury in the past year??No,?Have you had two or more falls in the past year??No.?SDOH Questions:?SDOH Questions?In the past year have you been worried about losing housing??No,?In the past year have you or any family members you live with been unable to get any of the following when it was really needed? Check all that apply:?None.?Symptom(s):? patient is a 83 yo female here for annual visit with review of recent labs and follow up of chronoic issues. * ROS:?General/Constitutional:?Patient denies?fatigue , headache.?Change in appetite?denies.?Chills?denies.?Fever?denies.?Ophthalmologic:?Blurred vision?denies.?Discharge?denies.?Pain?denies.?ENT:?Patient denies?decreased sense of smell , any loss of taste , sore throat.?Decreased hearing?denies.?Sore throat?denies.?Swollen glands?denies.?Endocrine:?Cold intolerance?denies.?Excessive thirst?denies.?Heat intolerance?denies.?Weight loss?denies.?Respiratory:?Cough?denies.?Shortness of breath at rest?denies.?Shortness of breath with exertion?denies.?Wheezing?denies.?Cardiovascular:?Chest pain at rest?denies.?Chest pain with exertion?denies.?Irregular heartbeat?denies.?Shortness of breath?denies.?Gastrointestinal:?Abdominal pain?denies.?Change in bowel habits?denies.?Diarrhea?denies.?Nausea?denies.?Rectal bleeding?denies.?Vomiting?denies .?Genitourinary:?Blood in urine?denies.?Difficulty urinating?denies.?Frequent urination?denies.?Urinary incontinence?Denies.?Musculoskeletal:?Patient denies?muscle aches.?Painful joints?denies.?Weakness?denies.?Peripheral Vascular:?Patient denies?red and blue toes.?Skin:?Dry skin?denies.?Itching?denies.?Denies?Mole(s),? changes in moles, new moles or any lesions of concern.?Denies?Photosensitivity.?Rash?denies.?Neurologic:?Dizziness?denies.?Fainting?denies.?Headache?denies.? * Medical History:? * Surgical History:? * Hospitalization/Major Diagno stic Procedure:? * Family History:?Father: dece ased 77 yrs.?Mother: 77 yrs, hyperlipidemia.?1 sister(s) - healthy. 2 son(s) , 1 daughter(s) - healthy. .? father ??? Mother Brain Tumor, Denies mental health/substance abuse family history, Denies mental health/substance abuse family history, Denies mental health/substance abuse family history. * Social History:?Tobacco Use:?Tobacco Use/Smoking?Patient is a?nonsmoker,?Additional Findings: Tobacco Non-User?Current non-smoker, currently using no form of tobacco.?Drugs/Alcohol:?Alcohol Screen?Did you have a drink containing alcohol in the past year??No,?Points?0,?Interpretation?Negative.?Miscellaneous:?Caffeine: yes, frequency:, 2-3 cups per day. Children: yes. no Community involvements. Exercise: yes, walks halfan hour QD. Home smoke detector use: yes. Housing: owning. Living with: alone. Occupation: weeks/months/years, retired. Pets: none. no Travel outside of the [place]. * Medications:?TakingMulti Vit chilel/Minerals Tablet as directed Orally Aspirin Low Dose 81 MG Tablet Delayed Release TAKE 1 TABLET BY MOUTH EVERY DAY Lisinopril 5 MG Tablet TAKE 1 TABLET BY MOUTH EVERY DAY Atorvastatin Calcium 40 MG Tablet TAKE 1 TABLET BY MOUTH EVERY DAY Orally Once a dayTaking Multi Vitamin/Minerals Tablet as directed Orally Taking Aspirin Low Dose 81 MG Tablet Delayed Release TAKE 1 TABLET BY MOUTH EVERY DAY Taking Lisinopril 5 MG Tablet TAKE 1 TABLET BY MOUTH EVERY DAY Taking Atorvastatin Calcium 40 MG Tablet TAKE 1 TABLET BY MOUTH EVERY DAY Orally Once a dayNot-Taking/PRNIbuprofen 600 MG Tablet 1 tablet with food or milk as needed Orally Three times a dayIbuprofen 200 MG Tablet 1 tablet with food or milk as needed Orally Three times a dayVitamin D-3 1000 UNIT Capsule 1 capsule Orally Once a dayAmbien 5 MG Tablet 1 tablet at bedtime Orally Once a day as neededCyclobenzaprine HCl 5 MG Tablet 1 tablet as needed Orally two times per dayMedication List reviewed and reconciled with the patientNot-Taking/PRN Ibuprofen 600 MG Tablet 1 tablet with food or milk as needed Orally Three times a dayNot-Taking/PRN Ibuprofen 200 MG Tablet 1 tablet with food or milk as needed Orally Three times a dayNot-Taking/PRN Vitamin D-3 1000 UNIT Capsule 1 capsule Orally Once a dayNot-Taking/PRN Ambien 5 MG Tablet 1 tablet at bedtime Orally Once a day as neededNot-Taking/PRN Cyclobenzaprine HCl 5 MG Tablet 1 tablet as needed Orally two times per dayMedication List reviewed and reconciled with the patient * Allergies:?N.K.D.A.yes[Aller gies Verified] Objective: * Vitals:?Ht: 65.5, Wt:123, BM I:20.15, BP:122/66 weight is down 3 pounds since 11-10-23. * ???Past Orders: ???Lab:IRON PROFILE (Order D ate - 11/25/2023) (Collection Date - 11/25/2023) ? Value Reference Range ?Iron 76 30-160 - mcg/dL ?Total Iron Binding Capacity 280 228-428 - mcg/dL ?Percent Iron Saturation 27 15-50 - % ?Unsaturated Iron Binding 204 - ug/dL ???Lab:UA ClnCatch+Micro w/r flx Cult (Order Date - 11/25/2023) (Collection Date - 11/25/2023) ? Value Reference Range ?Color Urine Straw - ?Appearance Urine Clear - ?PH 6.5 5.0-9.0 - ?Glucose Urine UA Negative Neg ative - mg/dL ?Urine Blood Negative Negative - ?Specific [place] - Urine 1.010 1.005-1.025 - ?Urine Protein Negative Neg-Tr yaz - mg/dL ?Urine Ketones Negative Negati ve - mg/dL ?Nitrite Urine Negative Negati ve - ?Leukocyte Esterase Urine Small (1+) A Negative - ?RBC Urine 0-2 0-2 - /HPF ?WBC Urine 0-5 0-5 - /HPF ?Squamous Epithelial Cell Urine 0-2 0-2 - /HPF ?Bacteria Urine None Seen None Seen - ?Hyaline Casts Urine 0-2 0-2 - /LPF ?Renal Epithelial Cells Urine Present - ???Lab:Comprehensive [place]. P gurjit Fast (Order Date - 11/25/2023) (Collection Date - 11/25/2023) ? Value Reference Range ?Sodium 134 L 135-145 - mmo l/L ?Bilirubin Total 0.5 0.0- 1.0 - mg/dL ?Aspartate Amino Transferase 26 5-31 - U/L ?Alanine Aminotransferase 17 0-31 - U/L ?Total Protein 7.0 6.5-8. 0 - g/dL ?Albumin Level 4.0 3.5-5. 0 - g/dL ?Alkaline Phosphatase 65 39-117 - U/L ?Potassium 4.3 3.3-5.1 - mmol/L ?Chloride 100 96-108 - mm ol/L ?Carbon Dioxide 25 22-29 - mmol/L ?Anion Gap 13 12-20 - ?Blood Urea Nitrogen 19 H 9-16 - mg/dL ?Creatinine 0.89 0.5-1.4 - mg/dL ?Estimated Glomerular Filt Rate > 60 - ?Glucose Fasting 61 60-9 9 - mg/dL ?Calcium 9.4 8.4-10.2 - m g/dL ???Lab:Hemoglobin A1c (Order Date - 11/25/2023) (Collection Date - 11/25/2023) ? Value Reference Range ?Hemoglobin A1c % 5.7 <6. 0 - % ?Estimated Average Glucose 117 - mg/dL ???Lab:Complete Blood Count Auto Diff (Order Date - 11/25/2023) (Collection Date - 11/25/2023) ? Value Reference Range ?White Blood Count 6.0 4. 8-10.8 - X10*3/uL ?Red Blood Count 4.30 4.20 -5.50 - X10*6/uL ?Hemoglobin 12.5 12.0-16.0 - g/dl ?Hematocrit 38.4 37.0-47.0 - % ?Mean Corpuscular Volume 89.3 80.0-98.0 - fL ?Mean Corpuscular Hemoglobin 29.1 27.0-33.0 - pg ?Mean Corpuscular HGB Conc 32.6 31.0-35.0 - g/dl ?Red Cell Distribution Width 13.8 11.0-16.0 - % ?Platelet Count 262 160-4 00 - X10*3/uL ?Mean Platelet Volume 10.7 9.4-12.3 - fL ?Neutrophils Percent Auto 57.5 45-73 - % ?Imm Gran Pct Auto 0.2 0. 0-0.4 - % ?Lymphocytes Percent Auto 30.4 20-40 - % ?Monocytes Percent Auto 8.3 2-11 - % ?Eosinophils Percent Auto 2.8 0-4 - % ?Basophils Percent Auto 0.8 0-2 - % ?NRBC Pct Auto 0.0 0.0-0. 2 - /100WBC ?Neutrophils Absolute Auto 3.4 2.0-8.3 - x10*3/uL ?Imm Gran Abs Auto 0.01 0. 00-0.03 - X10*3/uL ?Lymphocytes Absolute Auto 1.8 1.2-4.9 - X10*3/uL ?Monocytes Absolute Auto 0.5 0.1-1.2 - X10*3/uL ?Eosinophils Absolute Auto 0.2 0.0-0.4 - X10*3/uL ?Basophils Absolute Auto 0.1 0.0-0.2 - X10*3/uL ?NRBC Abs Auto 0.000 0.0-0. 012 - X10*3/uL ???Lab:Microalbumin, Random (Order Date - 11/25/2023) (Collection Date - 11/25/2023) ? Value Reference Range ?Creatinine Urine 63.24 - m g/dL ?Microalbumin Urine 29.0 - mg/L ?Microalbum Creatinin e Ratio Ur 45.8 H <30 - ug/mg cr ???Lab:Vitamin D 25-OH Total (Order Date - 11/25/2023) (Collection Date - 11/25/2023) ? Value Reference Range ?Vitamin D 25-OH Total 60.7 >30 - ng/mL * Examination: ???General Examination: ?GENERAL APPEARANCE:?well developed, well nourished, in no acute distress.?HEAD:?normocephalic, atraumatic.?EYES:?pupils equal, round, reactive to light and accommodation, sclera non-icteric.?EARS:?normal.?ORAL CAVITY:?mucosa moist.?THROAT:?clear.?NECK/THYROID:?neck supple, full range of motion, no cervical lymphadenopathy, no bruits.?SKIN:?warm and dry, no suspicious lesions.?HEART:?regular rate and rhythm, S1, S2 normal, no murmurs.?LUNGS:?clear to auscultation bilaterally.?BREASTS:?No mass, no lump.?ABDOMEN:?soft, nontender, nondistended, bowel sounds present, normal, no organomegaly , no masses palpable.?RECTAL EXAM:?no masses palpable, stool guaiac negative.?FEMALE GENITOURINARY:?declined.?EXTREMITIES:?no clubbing, cyanosis, or edema.?NEUROLOGIC:?nonfocal, motor strength normal upper and lower extremities, sensory exam intact.? Assessment: * Assessment: 1.?Encounter for screening f or malignant neoplasm of colon - Z12.11 (Primary)?2.?Encounter for screening for malignant neoplasm of rectum - Z12.12?3.?MCI (mild cognitive impairment) - G31.84?4.?Essential hypertension - I10?5.?Prediabetes - R73.09?6. Elevated LDL cholesterol level - E78.00?7.?Depression screening - Z13.31? Plan: * Treatment: ? Value Reference Range ?Occult Blood, Stool, Guaiac Neg Notes: juana fowler faxed to [facility], guaiac negative.??2.?Encounter for screening for malignant neoplasm of rectum?LAB: [email or web address].?MCI (mild cognitive impairment)? Notes: getting a little worse, will continue to monitor.??4.?Essential hypertension? Notes: well controlled, will continue current regiment.??5.?Prediabetes? Notes: stable, no need for medication at this time.??6.?Elevated LDL cholesterol level? Notes: stable, will continue current regiment.??7.?Depression screening? Notes: negative screen.?? * Procedure Codes:?56449 TEST FOR BLOOD, FECES * * Sign off status: Completed true * Provider:?Cole Becker MD Date:?0 12/02/2023 Generated for Jaylyn menjivar/Vasile/eTaubrieitting on:?09/03/2024 01:29 PM EST History and Physical Notes * HPI (History of Present Illness) Category Sub-Category Detail Notes Category Not es Symptom(s) patient is a 83 yo female here for annual visit with review of recent labs and follow up of chronoic issues. Depression Screening PHQ-9 Little inte rest or pleasure in doing things: Not at all Feeling down, depressed, or hopeless: No t at all Trouble falling or staying asleep, or sl eeping too much: Not at all Feeling tired or having little energy: N ot at all Poor appetite or overeating: Not at all Feeling bad about yourself o r that you are a failure, or have let yourself or your family down: Not at all Trouble concentrating on thi ngs, such as reading the newspaper or watching television: Not at all Moving or speaking so slowly that other people could have noticed; or the opposite, being so fidgety or restless that you have been moving around a lot more than usual: Not at all Thoughts that you would be b edd off or of hurting yourself in some way: Not at all Total Score: 0 Interpretation and Intervention Depression Dioni bowman Findings: Negative Follow-Up for Depression: : review of PH Q-9 found negative result, no follow-up needed SDOH Questions SDOH Questions In the past year have you been worried about losing housing?: No In the past year have you or any family members you live with been unable to get any of the following when it was really needed? Check all that apply:: None Fall Risk History Have you had any falls with injury i n the past year?: No Have you had two or more falls in the st year?: No Communication Needs Communication Needs Does the patient have a hearing impairment: No Does the patient have a vision impairmen t?: Yes ?If yes, what is the vision impairment?: Glasses Does the patient have a cognition impair ment?: Yes Examination Category Sub-Category Detail Notes Category Not es General Examination GENERAL APPEARANCE: well dev eloped, well nourished, in no acute distress HEAD: normocephalic, atrau matic EYES: pupils equal, round, reactive to light and accommodation, sclera non- icteric EARS: normal THROAT: clear NECK/THYROID: neck supple, full ra nge of motion, no cervical lymphadenopathy, no bruits HEART: regular rate and rhy thm, S1, S2 normal, no murmurs LUNGS: clear to auscultatio n bilaterally ABDOMEN: soft, nontender, non distended, bowel sounds present, normal, no organomegaly , no masses palpable NEUROLOGIC: nonfocal, motor stre ngth normal upper and lower extremities, sensory exam intact SKIN: warm and dry, no sanjay picious lesions EXTREMITIES: no clubbing, cyanosi s, or edema BREASTS: No mass, no lump RECTAL EXAM: no masses palpable, stool guaiac negative FEMALE GENITOURINARY: declined ORAL CAVITY: mucosa moist
--- OUTSIDE RECORDS SUMMARY | 2024-09-03 13:29 | XMS_ITS ---
Author Organization Cole Becker MD Address [address] [place] [phone] Care Team Providers Care Training Officer Name Role Phone Cole Becker Primary Care Provider [phone] Allergies No Known Allergies REASON FOR VISIT 6 month, ER [id number] [facility] [place] [facility] [place] thigh pain, Patient stopped all meds 3 month ago Medications Medication SIG (Take, Route, Frequency, Duration) Notes Start Date End Date Status Vitamin D-3 1000 UNIT 1 capsule Orally O nce a day for 30 day(s) 08/23/2017 Not-Taking Ibuprofen 200 MG 1 tablet with food o r milk as needed Orally Three times a day Not-Taking Cyclobenzaprine HCl 5 MG 1 tablet as nee ded Orally two times per day for 10 days 10/26/2018 Not-Taking Ambien 5 MG 1 tablet at bedtime Orally Once a day as needed for 10 days 03/16/2021 Not-Taking Ibuprofen 600 MG 1 tablet with food o r milk as needed Orally Three times a day for 30 days 06/09/2023 Not-Taking Atorvastatin Calcium 40 MG TAKE 1 TABLET BY MOUTH EVERY DAY Orally Once a day for 90 days Not-Taking Aspirin Low Dose 81 MG TAKE 1 TABLET BY MOUTH EVERY DAY for 90 Not-Taking Lisinopril 5 MG TAKE 1 TABLET BY MOUTH EVERY DAY for 90 Not-Taking Multi Vitamin/Minerals as directed Orally Not-Taking Vital Signs Blood pressure systolic 116 mm Hg 06/04/20 24 Blood pressure diastolic 60 mm Hg 024 Height 65.5 in 06/04/2024 Weight 123 lbs 06/04/2024 BMI 20.15 kg/m2 06/04/2024 Encounters Encounter Location Date Provider Diagnosis Cole Becker MD [address] [place] [address] [place] [address] [phone] 06/04/2024 Cole Becker Essential hypertension I10 ; Elevated LDL cholesterol level E78.00 ; Lumbar disc disease M51.9 and Prediabetes R73.09 Assessments Encounter Date Diagnosis (ICD Code) Assessment Notes Treatment Notes Treatment Clinical Notes Section Notes 06/04/2024 Essential hypertension (ICD-10 - I10) blood pressure is good off her meds for 3 months, Total time spent on the date of the encounter is 35 minutes including both face to face time spent and time spent reviewing documentation, and counseling the patient. 06/04/2024 Elevated LDL cholesterol level (ICD-10 - E78.00) not taking meds and is still doing well 06/04/2024 Lumbar disc disease (ICD-10 - M51.9) i think that was the cause of the pain that she went to the er for. will observe 06/04/2024 Prediabetes (ICD-10 - R73.09) stable, no need for medication at this time Plan Of Treatment Treatment Notes Assessment Notes Essential hypertension blood pressure is good off her meds for 3 months, Total time spent on the date of the encounter is 35 minutes including both face to face time spent and time spent reviewing documentation, and counseling the patient. Elevated LDL cholesterol level not takin g meds and is still doing well Lumbar disc disease i think that was the cause of the pain that she went to the er for. will observe Prediabetes stable, no need for medication at this time Next Appt Details Provider Name:Cole Rodriguez miguel, 11/30/2024 07:00:00 AM, [address], [address], [place], [place], [phone], Provider Name:Cole Thony Rodriguez miguel, 12/07/2024 01:00:00 PM, [address], [address], [place], [phone], Progress Notes * Nicky WEBER FDOB:[birth year] (83 yo F)Acc No.[id number]:06/04/2024 Progress Notes Patient:?Nicky Weber Provider:?Cole Becker MD :1940???Age:83 Y???Sex:Female D ate:06/04/2024 Address:[address] [place] [address] [address], [id number] Subjective: * Chief Complaints: * ???6 monthER [id number] [facility] [place] Right thigh painPatient stopped all meds 3 month ago * HPI: ???Symptom(s):? patient is a 83 yo female here for 6 month follow up visit , was in er for thigh pain. told her she had bursitis and gave her a shot and it went away. last week went to hospital again and it got better with nothing. * ROS:?General/Constitutional:?Denies?Chills.?Denies?Fatigue.?Denies?Fever.?Denies?Headache.?ENT:?Patient denies?decreased sense of smell , any loss of taste , sore throat.?Denies?Sore throat.?Respiratory:?Denies?Cough.?Denies?Shortness of breath at rest.?Denies?Shortness of breath with exertion.?Gastrointestinal:?Denies?Diarrhea.?Denies?Nausea.?Musculoskeletal:?Patient denies?muscle aches.?Peripheral Vascular:?Patient denies?red and blue toes.? * Medical History:? * Surgical History:? * Hospitalization/Major Diagno stic Procedure:? * Medications:?Not-Taking/PRNM ulti Vitamin/Minerals Tablet as directed Orally Aspirin Low Dose 81 MG Tablet Delayed Release TAKE 1 TABLET BY MOUTH EVERY DAY Atorvastatin Calcium 40 MG Tablet TAKE 1 TABLET BY MOUTH EVERY DAY Orally Once a dayLisinopril 5 MG Tablet TAKE 1 TABLET BY MOUTH EVERY DAY Ibuprofen 600 MG Tablet 1 tablet with [...] List reviewed and reconciled with the patientNot-Taking/PRN Multi Vitamin/Minerals Tablet as directed Orally Not-Taking/PRN Aspirin Low Dose 81 MG Tablet Delayed Release TAKE 1 TABLET BY MOUTH EVERY DAY Not-Taking/PRN Atorvastatin Calcium 40 MG Tablet TAKE 1 TABLET BY MOUTH EVERY DAY Orally Once a dayNot- Taking/PRN Lisinopril 5 MG Tablet TAKE 1 TABLET BY MOUTH EVERY DAY Not-Taking/PRN Ibuprofen 600 MG Tablet 1 tablet with food or milk as needed Orally Three times a dayNot- Taking/PRN Ibuprofen 200 MG Tablet 1 tablet with [...] Objective: * Vitals:?Ht: 65.5, Wt:123, BM I:20.15, BP:116/60. * ???Past Orders: ???Lab:Liver Panel (Order [facility] - 05/27/2024) (Collection Date - 05/27/2024) ? Value Reference Range ?Bilirubin Total 0.5 0.0- 1.0 - mg/dL ?Bilirubin Direct 0.2 0.0 -0.5 - mg/dL ?Aspartate Amino Transferase 30 5-31 - U/L ?Alanine Aminotransferase 15 0-31 - U/L ?Total Protein 7.0 6.5-8. 0 - g/dL ?Albumin Level 4.1 3.5-5. 0 - g/dL ?Alkaline Phosphatase 76 39-117 - U/L ???Lab:Lipid Panel (Order 05/27/2024) (Collection Date - 05/27/2024) ? Value Reference Range ?Triglycerides 93 <150 - mg/dL ?Cholesterol 231 H <200 - m g/dL ?LDL Cholesterol Calculated 150 H <100 - mg/dL ?HDL Cholesterol 63 >40 - mg/dL ???Lab:Hemoglobin A1c (Order Date - 05/27/2024) (Collection Date - 05/27/2024) ? Value Reference Range ?Hemoglobin A1c % 5.6 <6. 0 - % ?Estimated Average Glucose 114 - mg/dL ???Lab:Glucose Fasting (Orde r Date - 05/27/2024) (Collection Date - 05/27/2024) ? Value Reference Range ?Glucose Fasting 90 60-9 9 - mg/dL * Examination: ???General Examination: ?GENERAL APPEARANCE:?alert, well hydrated, in no distress.?HEAD:?normocephalic.?SKIN:?good turgor.?HEART:?regular rate and rhythm , no murmurs, rubs, gallops.?LUNGS:?no wheezes, rales, rhonchi , good air movement , clear to auscultation bilaterally.? Assessment: * Assessment: 1.?Essential hypertension - I10?2.?Elevated LDL cholesterol level - E78.00?3.?Lumbar disc disease - M51.9?4.?Prediabetes - R73.09? Plan: * Treatment: 2.?Elevated LDL cholesterol level? Notes: not taking meds and is still doing well?? 3.?Lumbar disc disease? Notes: i think that was the cause of the pain that she went to the er for. will observe?? 4.?Prediabetes? Notes: stable, no need for medication at this time?? * Procedure Codes:? * * Sign off status: Completed true * Provider:?Cole Becker MD Date:?1 08/04/2023 Generated for Jaylyn menjivar/Vasile/Ettasmitting on:?09/03/2024 01:29 PM EST History and Physical Notes * HPI (History of Present Illness) Category Sub-Category Detail Notes Category Not es Symptom(s) patient is a 83 yo female here for 6 month follow up visit , was in er for thigh pain. told her she had bursitis and gave her a shot and it went away. last week went to hospital again and it got better with nothing Examination Category Sub-Category Detail Notes Category Not es General Examination GENERAL APPEARANCE: alert, w ell hydrated, in no distress HEAD: normocephalic HEART: regular rate and rhy thm , no murmurs, rubs, gallops LUNGS: no wheezes, rales, r honchi , good air movement , clear to auscultation bilaterally SKIN: good turgor
--- OUTSIDE RECORDS SUMMARY | 2024-09-03 13:29 | XMS_ITS ---
Author Organization Cole Becker MD Address [address] [place] [phone] Support Name Relationship Address Phone Cole Becker Caregiver [address] [facility] [address] [place] [phone] Mahendra Acosta Caregiver [address] [facility] [address] [address] [place] [phone] Rashaun Scales Caregiver [address] [facility] [address] [address] [place] [phone] Joe Fisher Caregiver [address] [facility] [address] [facility] [address] [place] [phone] BaileyBasilio Caregiver [address] [facility] [address] [address] [place] [phone] ABHIJEET MAR Caregiver [address] [facility] [address] [address] [place] [phone] Anurag Mckenzie Caregiver [address] [facility] [address] [address] [place] [phone] OMAR HOWELL Emergency Contact Unknown Nicky Weber Guarantor Unknown [phone] Care Team Providers Care Aligner Typewriter Name Role Phone Cole Becker Primary Care Provider Results Component Value Reference Range Notes Liver Panel Reviewed date:05/27/2024 12:30:41 PM Interpretation: Performing Lab:[facility], [address] [place] [phone] Notes/Report: Bilirubin Total 0.5 0.0-1.0 mg/dL Bilirubin Direct 0.2 0.0-0.5 mg/dL Aspartate Amino Transferase 30 5-31 U/L Alanine Aminotransferase 15 0-31 U/L Total Protein 7.0 6.5-8.0 g/dL Albumin Level 4.1 3.5-5.0 g/dL Alkaline Phosphatase 76 39-117 U/L Glucose Fasting Reviewed date:05/27/2024 12:42:22 PM Interpretation: Performing Lab:[facility], [address] [place] [phone] Notes/Report: Glucose Fasting 90 60-99 mg/dL Hemoglobin A1c Reviewed date:05/27/2024 12:39:50 PM Interpretation: Performing Lab:[facility], [address] [place] [phone] Notes/Report: Hemoglobin A1c % 5.6 <6.0 % Hemoglobin A1C Reference Range Adults: 4.8 - [...] average glucose, using the formula of the [id number] Average Glucose study (ADAG), Diabetes Care, Vol.31,#8, Feb. 2007 REASON FOR VISIT fasting lipids Encounters Encounter Location Date Provider Diagnosis Cole Becker MD [address] [place] [phone] 05/27/2024 Cole Becker Prediabetes R73.09 and Elevated LDL cholesterol level E78.00 Assessments Encounter Date Diagnosis (ICD Code) Assessment Notes Treatment Notes Treatment Clinical Notes Section Notes 05/27/2024 Prediabetes (ICD-10 - R73.09) 05/27/2024 Elevated LDL cholesterol level (ICD-10 - E78.00) Plan Of Treatment Pending Test Test Name Order Date Lipid Panel with Reflex 05/27/2024 Next Appt Details Provider Name:Cole rivera, 11/30/2024 07:00:00 AM, [address] [place] [address], [address], [phone], Provider Name:Cole rivera, 12/07/2024 01:00:00 PM, [address] [place] [address], [address], [phone], Progress Notes * Nicky WEBER FDOB:[birth year] (83 yo F)Acc No.[id number]:05/27/2024 Progress Note Patient:Nicky BUITRAGO Provider:?Cole Becker MD :1940???Age:83 Y???Sex:Female D ate:05/27/2024 Address:[address] [place] [address] [address], [id number] Subjective: * Chief Complaints: * ???1. Fasting lipids. * Medical History:? Objective: * Vitals:? Assessment: * Assessment: 1.?Prediabetes - R73.09 (Anay eliazar)???2.?Elevated LDL cholesterol level - E78.00??? Plan: * Treatment: 2.?Elevated LDL cholesterol level?LAB: Lipid Panel with Reflex ?LAB: Liver Panel (Collection Date & Time - 05/27/2024 07:45 AM) ?LAB: Glucose Fasting (Collection Date & Time - 05/27/2024 07:45 AM) ?LAB: Hemoglobin A1c (Collection Date & Time - 05/27/2024 07:45 AM) * Procedure Codes:?52822 VENIP UNCT, ROUTINE* * * The named appointment provid er may or may not be the originator of this progress note, and it is not deemed complete until electronically signed by the appointment provider. Sign off status: Pending * Provider:?Cole Becker MD Date:?1 07/27/2023 Generated for Jaylyn menjivar/Vasile/eTransmitting on:?09/03/2024 01:29 PM EST
--- NOTE | 2024-09-03 13:30 | ECG_ITS ---
Test Reason : WEAKNESS Blood Pressure : */* mmHG Vent. Rate : 57 BPM Atrial Rate : 57 BPM P-R Int : 178 ms QRS Dur : 126 ms QT Int : 430 ms P-R-T Axes : 67 -66 73 degrees QTcB Int : 418 ms Sinus bradycardia with sinus arrhythmia Left axis deviation Left bundle branch block Abnormal ECG When compared with ECG of 20-Oct-2023 09:02, T wave inversion no longer evident in Lateral leads Referred By: Sayra Purcell Electronically Signed By: CLAUDIA PIEDRA MD
[2024-09-03] MEDS: Ketorolac Tromethamine 30 MG/ML VIAL IM (13:50)
[2024-09-03] MEDS: predniSONE 20 MG TABLET 40 MG PO (13:50)
--- NOTE | 2024-09-03 13:54 | PC.NURSE ---
pt a&ox3, returned from radiology, medicated for 9/10 pain.
[2024-09-03] MEDS: Lidocaine 4 % Patch ADH..PATCH 1 PATCH TRANSDERMA (15:11)
[2024-09-03] MEDS: traMADoL HCL 50 MG TABLET PO (15:11)
--- NOTE | 2024-09-03 15:12 | PC.NURSE ---
pt medicated for pain per order
[2024-09-03 16:42] VITALS: BP 182/86; PULSE 56; RESP 18; TEMP 36.6; O2SAT 100
== END 2024-09-03 16:43 | disposition home or self-care (01) ==
PROVIDERS: Emergency Provider Emergency Medicine; PCP Internal Medicine
DX: M25.551 Pain in right hip (principal); M79.604 Pain in right leg; R00.1 Bradycardia, unspecified; I49.8 Other specified cardiac arrhythmias; R42 Dizziness and giddiness; Z86.73 Personal history of transient ischemic attack (TIA), and cerebral infarction without residual deficits; Z79.899 Other long term (current) drug therapy
CPT/HCPCS: 72100; 93005; 96372; 99284; J1885

== ENCOUNTER → 2024-09-03 13:13 | Outpatient (BNV) | payer MEDICARE, SELFPAY | PROVIDERS: Emergency Provider Emergency Medicine; PCP Internal Medicine; Visit Provider Radiology Diagnostic Radiology | DX: M25.551 Pain in right hip (principal) | CPT/HCPCS: 72100 ==

== ENCOUNTER → 2024-09-03 13:30 | Outpatient (BNV) | payer MEDICARE, SELFPAY | PROVIDERS: Emergency Provider Emergency Medicine; PCP Internal Medicine; Visit Provider Internal Medicine Cardiovascular Disease | DX: I44.7 Left bundle-branch block, unspecified (principal); I49.9 Cardiac arrhythmia, unspecified | CPT/HCPCS: 93010 ==

== ENCOUNTER 2024-11-30 09:44 | Outpatient (REF) | payer MEDICARE, SELFPAY ==
[2024-11-30 09:48] LABS: MANUAL DIFF FLAG NO
--- OUTSIDE RECORDS SUMMARY | 2024-11-30 10:28 | XMS_ITS ---
Author Organization Cole Becker MD Address [address] [place] [phone] Care Team Providers Care Sales Account Manager Name Role Phone Cole Becker Primary Care Provider [phone] REASON FOR VISIT ER Encounters Encounter Location Date Provider Diagnosis Cole Becker MD [address] [place], [place] [phone] 09/05/2024 Cole Becker Plan Of Treatment Next Appt Details Provider Name:Cole rivera, 12/07/2024 01:00:00 PM, [address], [address], [place], [place], [phone], Progress Notes * Nicky WEBER FDOB:[birth year] (83 yo F)Acc No.[id number]:09/05/2024 Patient:Nicky BUITRAGO :1940???Age:83 Y???Sex:Female Address:[address] [place] [address] [address], [place] [address] * true * Date:? Generated for Jaylyn menjivar/Vasile/eTransmitting on:?11/30/2024 10:27 AM EDT
--- OUTSIDE RECORDS SUMMARY | 2024-11-30 10:28 | XMS_ITS | Patient Health Record ---
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 Name Role Phone Cole Becker Primary Care Provider Allergies No Known Allergies Results Component Value Reference Range Notes Liver Panel Reviewed date:05/27/2024 12:30:41 PM Interpretation: Performing Lab:[facility], [address] [place] [phone] Notes/Report: Bilirubin Total 0.5 0.0-1.0 mg/dL Bilirubin Direct 0.2 0.0-0.5 mg/dL Aspartate Amino Transferase 30 5-31 U/L Alanine Aminotransferase 15 0-31 U/L Total Protein 7.0 6.5-8.0 g/dL Albumin Level 4.1 3.5-5.0 g/dL Alkaline Phosphatase 76 39-117 U/L Glucose Fasting Reviewed date:05/27/2024 12:42:22 PM Interpretation: Performing Lab:[facility], [address] [place] [phone] Notes/Report: Glucose Fasting 90 60-99 mg/dL Hemoglobin A1c Reviewed date:05/27/2024 12:39:50 PM Interpretation: Performing Lab:[facility], [address] [place] [phone] Notes/Report: Hemoglobin A1c % 5.6 <6.0 % [...] average glucose, using the formula of the F2E-Nwohhit Average Glucose study (ADAG), Diabetes Care, Vol.31,#8, Feb. 2007 Occult Blood, Stool, Guaiac Reviewed date:12/02/2023 02:00:42 PM Interpretation:Negative Performing Lab: Notes/Report: Negative Occult Blood, Stool, Guaiac Neg Lipid Panel Reviewed date:05/27/2024 12:29:41 PM Interpretation: Performing Lab:[facility], [address] [place] [phone] Notes/Report: Triglycerides 93 <150 mg/dL Desirable Triglyceride: less than 150 mg/dL Borderline High Triglyceride 150-199 mg/dL High Triglyceride: 200-499 mg/dL Very High Triglyceride: greater than or equal to 5OO mg/dL Cholesterol 231 <200 mg/dL Desirable Cholesterol: less than 200 mg/dL Borderline High Cholesterol: 200-239 mg/dL High Cholesterol: greater than 239 mg/dL LDL Cholesterol Calculated 150 <100 mg/dL Desirable LDL: less than 100 mg/dL Near Optimal/Above Optimal LDL: 110-129 mg/dL Borderline High LDL: 130-159 mg/dL High LDL: 160-189 mg/dL Very High LDL: greater than or equal to 190 mg/dL HDL Cholesterol 63 >40 mg/dL Desirable HDL: greater than 40 mg/dL Note: This HDL assay may give artificially low results in patients with liver disease. Terri Roldan Reviewed date:05/27/2024 12:28:39 PM Interpretation: Performing Lab:[facility], [address] [place] [phone] Notes/Report: Terri Roldan See Note Specimen held untested for 24 hours; Call to request Chemistry testing. XR lumbar spine 2-3V Reviewed date:09/03/2024 05:02:31 PM Interpretation: Performing Lab: Notes/Report: [facility] [address] [place] [address]. [place] [address] XRay Report Signed Patient: Nicky Cifuentes MR#: [id number] : 1940 Acct:[id number] Age/Sex: 83 / F ADM Date: 09/03/24 Loc: HO.ED Attending Dr: Ordering Physician: Sayra Purcell NP Date of Service: 09/03/24 Procedure(s): XR lumbar spine 2-3V Accession Number(s): [id number] cc: Cole Becker MD; Sayra Purcell NP EXAMINATION: XR LUMBAR SPINE 2-3 VIEWS HISTORY: R lumbar/hip pain COMPARISON: There are no prior studies for comparison. FINDINGS: AP, lateral, and coned down views of the lumbar spine are submitted. The bones are osteopenic. There is moderate levoscoliosis. The vertebral bodies maintain normal height without evidence of fracture. There is grade I spondylolisthesis of L4 on L5. There is mild degenerative disc disease with disc space narrowing and osteophyte formation. 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 There is calcification of the abdominal aorta. XR/XR lumbar spine 2-3V IMPRESSION: Moderate levoscoliosis. Grade I spondylolisthesis of L4 on L5. Degenerative changes as described. Electronically signed by: Ignacio Ramires MD 09/03/2024 01:53 PM [facility] Dictated By: Ignacio Ramires MD Signed By: <Electronically signed by Ignacio Ramires MD in OV> 09/03/24 1353 DD/ 1313 TD/TT: 09/03/24 1345 Pool Hall Inspector: [address] [address] XRay Report Signed Patient: Araceli Cifuentes MR#: [id number] : 1940 Acct:[id number] Age/Sex: 83 / F ADM Date: 09/03/24 Loc: HO.ED Attending Dr: Ordering Physician: Sayra Purcell NP Date of Service: 09/03/24 Procedure(s): XR lum bar spine 2-3V Accession Number(s): [id number] cc: Cole Becker MD; Sayra Purcell NP EXAMINATION: XR LUMB AR SPINE 2-3 VIEWS HISTORY: R lumbar/hi p pain COMPARISON: There ar e no prior studies for comparison. FINDINGS: AP, latera l, and coned down views of the lumbar spine are submitted. The bones are osteopenic. There is moderate levoscoliosis. The vertebral bodies maintain normal height without evidence of fracture. There is g rade I spondylolisthesis of L4 on L5. There is mild degenerative di sc disease with disc space narrowing and osteophyte formation. 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 There is calcificati on of the abdominal aorta. X R/XR lumbar spine 2-3V IMPRESSION: Moderate levoscolios is. Grade I spondylolisthesis of L4 on L5. Degenerative changes as described. Electronically kelly d by: Ignacio Ramires MD 09/03/2024 01:53 PM [facility] Dictated By: Ignacio Ramires MD Signed By: <Electronically signed by Ignacio Ramires MD in OV> 09/03/24 1353 DD/ 1313 TD/TT: 09/03/24 1340 Pool Hall Inspector: Terri Roldan (Not yet reviewed by provider) Interpretation: Performing Lab:[facility], [address] [place] [phone] Notes/Report: Terri Roldan See Note Specimen held untested for 24 hours; Call to request Chemistry testing. Reason For Referral No Information Medications Medication SIG (Take, Route, Frequency, Duration) Notes Start Date End Date Status Lisinopril 5 MG TAKE 1 TABLET BY MOUTH EVERY DAY for 90 Not-Taking Ibuprofen 600 MG 1 tablet with food o r milk as needed Orally Three times a day for 30 days 06/09/2023 Not-Taking Aspirin Low Dose 81 MG TAKE 1 TABLET BY MOUTH EVERY DAY for 90 Not-Taking Atorvastatin Calcium 40 MG TAKE 1 TABLET BY MOUTH EVERY DAY Orally Once a day for 90 days Not-Taking Ambien 5 MG 1 tablet at bedtime Orally Once a day as needed for 10 days 03/16/2021 Not-Taking Cyclobenzaprine HCl 5 MG 1 tablet as nee ded Orally two times per day for 10 days 10/26/2018 Not-Taking Ibuprofen 200 MG 1 tablet with food o r milk as needed Orally Three times a day Not-Taking Vitamin D-3 1000 UNIT 1 capsule Orally O nce a day for 30 day(s) 08/23/2017 Not-Taking Multi Vitamin/Minerals as directed Orally Not-Taking Immunizations Vaccine Route Administration Date Status Comme nts Flu Vaccine IM Intramuscular 04/02/2011 Administered Flu Vaccine IM Intramuscular 04/06/2012 Administered Shingles IM Intramuscular 06/16/2012 Administered PPSV23 (Pnemovax) IM Intramuscular 05/26/2012 Administered Flu Vaccine IM Intramuscular 05/17/2013 Administered Flu Vaccine Unknown 04/25/2014 Administered [facility] Prevnar 13 IM Intramuscular 06/20/2014 Administered Flu Vaccine IM Intramuscular 04/19/2015 Administered pt re cieved the high dose flu at the [facility] Fluarix Quadrivalent IM Intramuscular 04/12/2016 Administered zFluzone Quadrivalent Unknown 03/25/2017 Administered [facility] PPSV23 (Pnemovax) IM Intramuscular 08/22/2017 Administered Flu Vaccine IM Intramuscular 04/06/2018 Administered pt wa s given the high dose flu vaccine at [facility]. Influenza High Dose IM Intramuscular 04/19/2019 Administer ed pt had the vaccine at [facility] in [place]. Influenza High Dose IM Intramuscular 03/24/2020 Administer ed Covid Vaccine Unknown 08/23/2020 Administered Pfizer Covid Vaccine Unknown 09/20/2020 Administered Influenza High Dose IM Intramuscular 04/02/2021 Administer ed SARS-COV-2 Pfizer Unknown 05/06/2021 Administered SARS-COV-2 Pfizer Unknown 02/02/2022 [facility] Influenza High Dose Unknown 06/24/2022 [facility] PPSV23 (Pnemovax) IM Intramuscular 11/26/2022 Administered Influenza High Dose Unknown 05/01/2023 [facility]ered [facility] SARS-COV-2 Pfizer Unknown 05/01/2023 [facility]ered [facility] Social History Tobacco Use: Social History Observation [...] ast year? 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) Active confirmed Problem 33527342 Irritable bowel syndrome without diarrhea (K58.9) Active confirmed Problem 96588199 Vitiligo (L80) Active confirmed Problem 300413504 Lumbar disc dise ase (M51.9) Active confirmed Problem 247649287 Osteopenia (M85.80) Active confirmed Problem 71218574 Essential hypertension (I10) Active confirmed Problem 5083613 Prediabetes (R73.09) Active confirmed Problem 68725684 Other iron deficiency anemia (D50.8) Active confirmed Problem 77524840 Costochondritis (M94.0) Active confirmed Problem 175345690 Abnormal mammogr am (R92.8) Active confirmed Problem 116034682 Panic attacks (F41.0) Active confirmed Problem 83147184 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) Active confirmed Problem 33526858 Sciatica of righ t side (M54.31) Active confirmed Problem 373573326 Elevated LDL cholesterol level (E78.00) Active confirmed Problem 306759014 MCI (mild cognit andrew impairment) (G31.84) Active confirmed Vital Signs Blood pressure diastolic 60 mm Hg 09/13/2024 Height 65.5 in 09/13/2024 Blood pressure systolic 112 mm Hg 09/13/2024 Weight 124 lbs 09/13/2024 BMI 20.32 kg/m2 09/13/2024 Encounters Encounter Location Date Provider Diagnosis Cole P Bombardier MD [address] [place] [phone] 05/27/2024 Cole Becker Prediabetes R73.09 and Elevated LDL cholesterol level E78.00 Cole Becker MD [address] [id number] 11/30/2024 Cole Becker Blood tests for routine general physical examination Z00.00 ; Prediabetes R73.09 ; Essential hypertension I10 ; Vitamin D deficiency E55.9 and Elevated LDL cholesterol level E78.00 Cole Becker MD [address] [id number] 12/02/2023 Cole Becker Encounter for screening for malignant neoplasm of colon Z12.11 ; Encounter for screening for malignant neoplasm of rectum Z12.12 ; MCI (mild cognitive impairment) G31.84 ; Essential hypertension I10 ; Prediabetes R73.09 ; Elevated LDL cholesterol level E78.00 and Depression screening Z13.31 Cole Becker MD [address] [id number] 06/04/2024 Cole Becker Essential hypertension I10 ; Elevated LDL cholesterol level E78.00 ; Lumbar disc disease M51.9 and Prediabetes R73.09 Cole Becker MD [address] [id number] 09/13/2024 Cole Becker UTI (urinary tract infection) N39.0 ; Near syncope R55 and Lumbar disc disease M51.9 Cole Becker MD [address] [id number] 09/05/2024 Cole Becker Assessments Encounter Date Diagnosis (ICD Code) Assessment Notes Treatment Notes Treatment Clinical Notes Section Notes 05/27/2024 Prediabetes (ICD-10 - R73.09) 05/27/2024 Elevated LDL cholesterol level (ICD-10 - E78.00) 11/30/2024 Blood tests for routine general physical examination (ICD-10 - Z00.00) 12/02/2023 Encounter for screening for malignant neoplasm of colon (ICD-10 - Z12.11) cologuard order faxed to [facility] 12/02/2023 Encounter for screening for malignant neoplasm of rectum (ICD-10 - Z12.12) 06/04/2024 Essential hypertension (ICD-10 - I10) blood pressure is good off her meds for 3 months, Total time spent on the date of the encounter is 35 minutes including both face to face time spent and time spent reviewing documentation, and counseling the patient. 06/04/2024 Elevated LDL cholesterol level (ICD-10 - E78.00) not taking meds and is still doing well 09/13/2024 UTI (urinary tract infection) (ICD-10 - N39.0) leaving a speciman 09/13/2024 Near syncope (ICD-10 - R55) seems like it was probaly related to the pain 11/30/2024 Prediabetes (ICD-10 - R73.09) 12/02/2023 MCI (mild cognitive impairment) (ICD-10 - G31.84) getting a little worse, will continue to monitor 06/04/2024 Lumbar disc disease (ICD-10 - M51.9) i think that was the cause of the pain that she went to the er for. will observe 09/13/2024 Lumbar disc disease (ICD-10 - M51.9) most of the pain seems to be from this but has resolved 11/30/2024 Essential hypertension (ICD-10 - I10) 12/02/2023 Essential hypertension (ICD-10 - I10) well controlled, will continue current regiment 06/04/2024 Prediabetes (ICD-10 - R73.09) stable, no need for medication at this time 11/30/2024 Vitamin D deficiency (ICD-10 - E55.9) 12/02/2023 Prediabetes (ICD-10 - R73.09) stable, no need for medication at this time 11/30/2024 Elevated LDL cholesterol level (ICD-10 - E78.00) 12/02/2023 Elevated LDL cholesterol level (ICD-10 - E78.00) stable, will continue current regiment 12/02/2023 Depression screening (ICD-10 - Z13.31) negative screen Plan Of Treatment Pending Test Test Name Order Date Electrocardiogram (EKG) 08/22/2017 Electrocardiogram (EKG) 09/10/2018 MRI LUMBAR SPINE NO CONTRAST 02/06/2021 XR CHEST 2 VIEW PA & LAT 06/20/2014 BONE DENSITY DEXA 08/03/2020 Complete Blood Count Auto Diff Comprehensive [place]. Panel Fast 5 Lipid Panel 11/30/2024 Vitamin D 25-OH Total 11/30/2024 Microalbumin, Random 11/30/2024 Hold Gold 11/30/2024 ECG 30 day event monitor 06/09/2023 XR chest 2V 10/26/2021 Hemoglobin A1c 11/30/2024 UA ClnCatch+Micro w/rflx Cult 11/30/2024 Next Appt Details Provider Name:Coledelfino Rodriguez ier, 12/07/2024 01:00:00 PM, [address] [place] [address], [address], [place], [place], [id number], Insurance Providers Payer Name Payer Address Payer Phone Subscriber Number Group Number Insured Name Patient Relationship to Insured Coverage Start Date Coverage End Date [facility] are [employer] [address] [address] [place] [address] [id number] Nicky Cifuentes Self - patient is the insured 4 Medical (General) History Medical History History ICD Code colonoscopy 02/07/2009 due in 2019; colonoscopy booked for 04/13/[address] Fisher Surgical History Surgery Date(Month/Year) LT Hand Mass Excisional Biop sy and LT Middle Finger flexor tenosynovectomy 11/2020
--- OUTSIDE RECORDS SUMMARY | 2024-11-30 10:28 | XMS_ITS ---
Author Organization Cole Becker MD Address [address] [place] [phone] Care Team Providers Care Community Health Specialist Name Role Phone Cole Becker Primary Care Provider Allergies No Known Allergies REASON FOR VISIT F/U ER visit r hip pain, Accompanied by daughter Medications Medication SIG (Take, Route, Frequency, Duration) Notes Start Date End Date Status Ibuprofen 600 MG 1 tablet with food o r milk as needed Orally Three times a day for 30 days 06/09/2023 Not-Taking Ambien 5 MG 1 tablet at [...] a day for 30 day(s) 08/23/2017 Not-Taking Lisinopril 5 MG TAKE 1 TABLET BY MOUTH EVERY DAY for 90 Not-Taking Aspirin Low Dose 81 MG TAKE 1 TABLET BY MOUTH EVERY DAY for 90 Not-Taking Atorvastatin Calcium 40 MG TAKE 1 TABLET BY MOUTH EVERY DAY Orally Once a day for 90 days Not-Taking Multi Vitamin/Minerals as directed Orally Not-Taking Vital Signs Blood pressure systolic 112 mm Hg 09/13/19 25 Blood pressure diastolic 60 mm Hg 025 Height 65.5 in 09/13/2024 Weight 124 lbs 09/13/2024 BMI 20.32 kg/m2 09/13/2024 Encounters Encounter Location Date Provider Diagnosis Cole Becker MD [address] [place] [address] Drive [address] [place], [place] [phone] 09/13/2024 Cole Becker UTI (urinary tract infection) N39.0 ; Near syncope R55 and Lumbar disc disease M51.9 Assessments Encounter Date Diagnosis (ICD Code) Assessment Notes Treatment Notes Treatment Clinical Notes Section Notes 09/13/2024 UTI (urinary tract infection) (ICD-10 - N39.0) leaving a speciman 09/13/2024 Near syncope (ICD-10 - R55) seems like it was probaly related to the pain 09/13/2024 Lumbar disc disease (ICD-10 - M51.9) most of the pain seems to be from this but has resolved Plan Of Treatment Treatment Notes Assessment Notes UTI (urinary tract infection) leaving a speciman Near syncope seems like it was pr obaly related to the pain Lumbar disc disease most of the pain see ms to be from this but has resolved Next Appt Details Provider Name:Cole rivera, 12/07/2024 01:00:00 PM, [address], [address], [place], [place], [phone], Progress Notes * Nicky WEBER FDOB:[birth year] (84 yo F)Acc No.[id number]:09/13/2024 Progress Notes Patient:?Nicky WEBER Provider:?Cole Becker MD :1940???Age:83 Y???Sex:Female D ate:09/13/2024 Address:[address] [place] [address] [address], [id number] Subjective: * Chief Complaints: * ???F/U ER visit r hip painAc companied by daughter * HPI: ???Symptom(s):?patient is a 83 yo fmale had another episode of weakness at [facility] last week and in er thought to be a hip problem. no actual syncope. can usually walk on it with problems. * ROS:?General/Constitutional:?Denies?Chills.?Denies?Fatigue.?Denies?Fever.?Denies?Headache.?ENT:?Patient denies?decreased sense of smell, any loss of taste, sore throat.?Respiratory:?Denies?Cough.?Denies?Shortness of breath at rest.?Denies?Shortness of breath [...] MOUTH EVERY DAY Orally Once a day Lisinopril 5 MG Tablet TAKE 1 TABLET BY MOUTH EVERY DAY Ibuprofen 600 MG Tablet 1 tablet with food or milk as needed Orally Three times a day Ibuprofen 200 MG Tablet 1 tablet with food or milk as needed Orally Three times a day Vitamin D-3 1000 UNIT Capsule 1 capsule Orally Once a day Ambien 5 MG Tablet 1 tablet at bedtime Orally Once a day as needed Cyclobenzaprine HCl 5 MG Tablet 1 tablet as needed Orally two times per day Medication List reviewed and reconciled with the patientNot-Taking/PRN Multi Vitamin/Minerals Tablet as directed Orally Not-Taking/PRN Aspirin Low Dose 81 MG Tablet Delayed Release TAKE 1 TABLET BY MOUTH EVERY DAY Not-Taking/PRN Atorvastatin Calcium 40 MG Tablet TAKE 1 TABLET BY MOUTH EVERY DAY Orally Once a day Not-Taking/PRN Lisinopril 5 MG Tablet TAKE 1 TABLET BY MOUTH EVERY DAY Not- Taking/PRN Ibuprofen 600 MG Tablet 1 tablet with food or milk as needed Orally Three times a day Not-Taking/PRN Ibuprofen 200 MG Tablet 1 tablet with food or milk as needed Orally Three times a day Not-Taking/PRN Vitamin D-3 1000 UNIT Capsule 1 capsule Orally Once a day Not-Taking/PRN Ambien 5 MG Tablet 1 tablet at bedtime Orally Once a day as needed Not-Taking/PRN Cyclobenzaprine HCl 5 MG Tablet 1 tablet as needed Orally two times per day Medication List reviewed and reconciled with the patient * Allergies:?N.K.D.A.yes[Aller gies Verified] Objective: * Vitals:?Ht: 65.5, Wt: 124, B PR:20.32, BP:112/60, Wt-k.25. * Examination: ???General Examination: ?GENERAL APPEARANCE:?alert, well hydrated, in no distress.?HEAD:?normocephalic.?SKIN:?good turgor.?HEART:?no murmurs, rubs, gallops, regular rate and rhythm.?LUNGS:?clear to auscultation bilaterally, clear anteriorly and posteriorly.?EXTREMITIES:?normal dtr's and strength in lower extremities.? Assessment: * Assessment: 1.?UTI (urinary tract infect ion) - N39.0 (Primary)???2.?Near syncope - R55???3.?Lumbar disc disease - M51.9??? Plan: * Treatment: 2.?Near syncope? Notes: seems like it was probaly related to the pain?? 3.?Lumbar disc disease? Notes: most of the pain seems to be from this but has resolved?? * Procedure Codes:? * * Sign off status: Completed true * Provider:?Cole Becker MD Date:?0 09/13/2024 Generated for Kelseyi otto/Vasile/eTransmitting on:?11/30/2024 10:27 AM EDT History and Physical Notes * HPI (History of Present Illness) Category Sub-Category Detail Notes Category Not es Symptom(s) patient is a 83 yo fmale had another episode of weakness at [facility] last week and in er thought to be a hip problem. no actual syncope. can usually walk on it with problems Examination Category Sub-Category Detail Notes Category Not es General Examination GENERAL APPEARANCE: alert, w ell hydrated, in no distress HEAD: normocephalic HEART: no murmurs, rubs, ga llops, regular rate and rhythm LUNGS: clear to auscultatio n bilaterally, clear anteriorly and posteriorly SKIN: good turgor EXTREMITIES: normal dtr's and str ength in lower extremities
--- OUTSIDE RECORDS SUMMARY | 2024-11-30 10:28 | XMS_ITS ---
Author Organization [facility] Care Team Providers Care Distributor Publications Name Role Phone Chaparro Valiente Unavailable Unavailable Levvaleria, Carmen Unavailable Unavailable Allergies and adverse reactions Code CodeSystem Substance Reaction Severity StartDate Concern Status 7804 RXNORM Oxycodone Unknown 06/10/2019 active Care Team Name Role Address Phone Organization Dates Chaparro Valiente PCP [address] [address] [address], [place], [address], [place] (Office): : [facility] 06/10/2019 - 06/21/2019 Carmen Levheim [address], [place], [address], [place] (Office): [facility] 06/10/2019 - 06/21/2019 Immunizations Immunization Status Vaccine Details Vaccine Code CodeSystem Ankit e Notes TB 2 Step Mantoux Skin Test completed tuberculin skin test; unspecified formulation lotNumber: [id number] expiry: 05/21/2020 Mfg: Per Given 0.1 ml Left Forearm intradermally Step 1 of Multi-step with next step required 98 CVX created date: 06/11/2019 consent date: 06/11/2019 administere d date: 06/11/2019 Mental Status Section Date Assessment Total Score Description 06/21/2019 BIMS 15 cognitively int act CAM 0 No delirium ind icated PHQ-9 00 06/17/2019 BIMS 14 cognitively int act CAM 0 No delirium ind icated PHQ-9 00 Problems Problem # Description Date of onset Resolved Date Code CodeSystem Concern Status 1 ENCOUNTER FOR OTHER SPECIFIED SURGICAL AFTERCARE 06/10/[address] active 2 IRON DEFICIENCY ANEMIA SECONDARY TO BLOOD LOSS (CHRONIC) 06/10/[address] active 3 OSTEOARTHRITIS OF HIP, UNSPECIFIED 06/10/[address] active 4 OTHER ABNORMALITIES OF GAIT AND MOBILITY 06/10/[address] active 5 OTHER LACK OF COORDINATION 06/10/[address] active 6 PRESENCE OF RIGHT ARTIFICIAL HIP JOINT 06/10/[address] active 7 SYNCOPE AND COLLAPSE 06/10/[address] active 8 WEAKNESS 06/10/[address] active Reason for Referral No Reasons for Referral Entered Social History Social History Observation Description Start Date End Date Code Code System Current Smoking Status Tobacco smoking consumption unknown 896449102 SNOMED CT Sex Assigned At Female 1940 45297-9 [facility] Gender Identity Vital Signs Code Code System Vitals Name Values and Units Timing Information 57573-3 [facility] Pain Level Value=0.0 06/21/2019 9279-1 [facility] Respiratory Rate Value=18.0 Units=/m in 06/21/2019 8462-4 [facility] Blood Pressure-Diastolic Value=93 Un its=mmHg 06/21/2019 8480-6 [facility] Blood Pressure-Systolic Cjaha=309 Un its=mmHg 06/21/2019 8310-5 [facility] Body Temperature Value=98.7 Units=?? F 06/21/2019 8867-4 [facility] Heart rate Value=96.0 Units=/min 08/2018 48736-2 [facility] O2 % dC Oximetry Value=96.0 Units= % 06/21/2019 79537-5 [facility] Weight Wbqdy=500.0 Units=Lbs 8302-2 [facility] Height Value=63.0 Units=Inches 06/10/2019
--- OUTSIDE RECORDS SUMMARY | 2024-11-30 10:28 | XMS_ITS ---
Author Organization Cole Becker MD Address [address] [place] [phone] Care Team Providers Care Veneer Layer Name Role Phone oCle Becker Primary Care Provider [phone] REASON FOR VISIT yearly fasting labs Encounters Encounter Location Date Provider Diagnosis Cole Becker MD [address] [place] [phone] 11/30/2024 Cole Becker Blood tests for routine general physical examination Z00.00 ; Prediabetes R73.09 ; Essential hypertension I10 ; Vitamin D deficiency E55.9 and Elevated LDL cholesterol level E78.00 Assessments Encounter Date Diagnosis (ICD Code) Assessment Notes Treatment Notes Treatment Clinical Notes Section Notes 11/30/2024 Blood tests for routine general physical examination (ICD-10 - Z00.00) 11/30/2024 Prediabetes (ICD-10 - R73.09) 11/30/2024 Essential hypertension (ICD-10 - I10) 11/30/2024 Vitamin D deficiency (ICD-10 - E55.9) 11/30/2024 Elevated LDL cholesterol level (ICD-10 - E78.00) Plan Of Treatment Pending Test Test Name Order Date Complete Blood Count Auto Diff [facility] [place]. Panel Fast Lipid Panel 11/30/2024 Vitamin D 25-OH Total 11/30/2024 Microalbumin, Random 11/30/2024 Hemoglobin A1c 11/30/2024 UA ClnCatch+Micro w/rflx Cult 11/30/2024 Next Appt Details Provider Name:Cole Rodriguez ier, 12/07/2024 01:00:00 PM, [address] [facility], [address], [place], [place], [phone], Progress Notes * Nicky WEBER FDOB:[birth year] (84 yo F)Acc No.[id number]:11/30/2024 Progress Note Patient:?Nicky WEBER Provider:?Cole Becker MD :1940???Age:84 Y???Sex:Female D ate:11/30/2024 Address:[address] [place] [address] [address], [id number] Subjective: * Chief Complaints: * ???1. Yearly fasting labs. * Medical History:? Objective: * Vitals:? Assessment: * Assessment: 1.?Blood tests for routine g eneral physical examination - Z00.00 (Primary)???2.?Prediabetes - R73.09???3.?Essential hypertension - I10???4.?Vitamin D deficiency - E55.9???5.?Elevated LDL cholesterol level - E78.00??? Plan: * Treatment: 2.?Prediabetes?LAB: Complete Blood Count Auto Diff ?LAB: [facility] [place]. Panel Fast ?LAB: Lipid Panel ?LAB: Vitamin D 25-OH Total ?LAB: Microalbumin, Random ?LAB: Hemoglobin A1c ?LAB: UA ClnCatch+Micro w/rflx Cult 3.?Essential hypertension?LAB: Complete Blood Count Auto Diff ?LAB: [facility] [place]. Panel Fast ?LAB: Lipid Panel ?LAB: Vitamin D 25-OH Total ?LAB: Microalbumin, Random ?LAB: Hemoglobin A1c ?LAB: UA ClnCatch+Micro w/rflx Cult 4.?Vitamin D deficiency?LAB: Complete Blood Count Auto Diff ?LAB: [facility] [place]. Panel Fast ?LAB: Lipid Panel ?LAB: Vitamin D 25-OH Total ?LAB: Microalbumin, Random ?LAB: Hemoglobin A1c ?LAB: UA ClnCatch+Micro w/rflx Cult 5.?Elevated LDL cholesterol level?LAB: Complete Blood Count Auto Diff ?LAB: [facility] [place]. Panel Fast ?LAB: Lipid Panel ?LAB: Vitamin D 25-OH Total ?LAB: Microalbumin, Random ?LAB: Hemoglobin A1c ?LAB: UA ClnCatch+Micro w/rflx Cult * Procedure Codes:?36675 VENIP UNCT, ROUTINE* * * The named appointment provid er may or may not be the originator of this progress note, and it is not deemed complete until electronically signed by the appointment provider. Sign off status: Pending * Provider:?Cole Becker MD Date:?0 11/30/2024 Generated for Jaylyn menjivar/Vasile/eTransmitting on:?11/30/2024 10:27 AM EDT
[2024-11-30 11:05] LABS: Basophils Absolute Auto 0.1 X10*3/uL (0.0-0.2); Basophils Percent Auto 0.7 % (0-2); Eosinophils Absolute Auto 0.2 X10*3/uL (0.0-0.4); Eosinophils Percent Auto 2.2 % (0-4); Hematocrit 41.4 % (37.0-47.0); Hemoglobin 13.1 g/dl (12.0-16.0); Imm Gran Abs Auto 0.02 X10*3/uL (0.00-0.03); Imm Gran Pct Auto 0.3 % (0.0-0.4); Lymphocytes Absolute Auto 2.4 X10*3/uL (1.2-4.9); Mean Corpuscular HGB Conc 31.6 g/dl (31.0-35.0); Mean Corpuscular Hemoglobin 27.9 pg (27.0-33.0); Mean Corpuscular Volume 88.3 fL (80.0-98.0); Mean Platelet Volume 10.8 fL (9.4-12.3); Monocytes Absolute Auto 0.5 X10*3/uL (0.1-1.2); Monocytes Percent Auto 7.4 % (2-11); Neutrophils Absolute Auto 3.7 x10*3/uL (2.0-8.3); Neutrophils Percent Auto 54.4 % (45-73); Platelet Count 275 X10*3/uL (160-400); Red Blood Count 4.69 X10*6/uL (4.20-5.50); Red Cell Distribution Width 13.8 % (11.0-16.0); White Blood Count 6.8 X10*3/uL (4.8-10.8)
[2024-11-30 11:20] LABS: Estimated Average Glucose 117 mg/dL; Hemoglobin A1C 137.6684 umol/L; Hemoglobin A1c % 5.7 % (<6.0); Total Hemoglobin (HGBA1C) 3521.4552 umol/L
[2024-11-30 12:02] LABS: Alanine Aminotransferase 9 U/L (0-31); Albumin Level 4.1 g/dL (3.5-5.0); Anion Gap 12 (12-20); Aspartate Amino Transferase 29 U/L (5-31); Bilirubin Total 0.4 mg/dL (0.0-1.0); Blood Urea Nitrogen 28 mg/dL (9-16); Calcium 9.4 mg/dL (8.4-10.2); Carbon Dioxide 28 mmol/L (22-29); Chloride 105 mmol/L (96-108); Cholesterol 273 mg/dL (<200); Estimated Glomerular Filt Rate 50; Glucose Fasting 106 mg/dL (60-99); HDL Cholesterol 55 mg/dL (>40); LDL Cholesterol Calculated 192 mg/dL (<100); Potassium 4.4 mmol/L (3.3-5.1); Sodium 141 mmol/L (135-145); Triglycerides 134 mg/dL (<150); Vitamin D 25-OH Total 68.2 ng/mL (>30)
[2024-11-30 12:38] LABS: Alkaline Phosphatase 64 U/L (39-117)
== END 2024-11-30 09:45 | disposition home or self-care (01) ==
LOC: HO.LNP 09:44
PROVIDERS: Visit Provider Internal Medicine
DX: Z00.00 Encounter for general adult medical examination without abnormal findings (principal); R73.03 Prediabetes; I10 Essential (primary) hypertension; E55.9 Vitamin D deficiency, unspecified; E78.00 Pure hypercholesterolemia, unspecified
CPT/HCPCS: 80053; 80061; 82306; 83036; 85025

== ENCOUNTER 2024-12-29 11:27 | Outpatient (AMB) | payer MEDICARE, SELFPAY ==
--- NOTE | 2024-12-29 11:34 | HO.NEPHOV ---
Vital Signs 12/29/24 11:36 Height 5 ft 4 in Weight 123 lb 2 oz BMI 21.1 BP 124/80 Blood Pressure Location Lt brachial Position Sitting Pulse 76 Pulse Source Pulse Oximeter Pulse Oximetry (%) 96 Oxygen Delivery Method Room Air Intake Visit Reasons: ENP: Elevated BUN/ Conf Youth Career Specialist Required: No Accompanied by: Daughter Allergies oxycodone Allergy (Intermediate, Verified 12/29/24 11:36) Confusion HPI Comments Details: 84-year-old lady with PMH of hypertension, osteoarthritis easy here as her BUN is slightly higher. Here with her daughter Anusha. Hypertension: over 10 years, [facility] Medical History (Updated 12/29/24 @ 11:51 by Drake Smalls MD) Elevated LDL cholesterol level Other iron deficiency anemias Panic attacks Vitamin D deficiency Lumbar disc disease Diverticulitis Sciatica of right side Primary insomnia Costochondritis Osteopenia Irritable bowel syndrome without diarrhea Mild cognitive impairment Arthritis TIA (transient ischemic attack) COVID-19 vaccine administered Pre-diabetes History of anesthesia complications Dementia Osteoarthritis LBBB (left bundle branch block) Syncope HTN (hypertension) Surgical History History of esophagogastroduodenoscopy (EGD) Hx of cataract surgery History of total right hip arthroplasty Hx of colonoscopy History of appendectomy History of tonsillectomy and adenoidectomy History of hysterectomy Family History Father No problems noted. Mother Brain tumor Sister No problems noted. Daughter No problems noted. Son No problems noted. Son No problems noted. Social History Household Members: None Housing: Apartment Are you a primary director of health care marketing to a significant other at home: No Do you presently have visiting nurse or other home services: No Unable to assess alcohol history related to: Unknown Alcohol intake: never Patient Tobacco Use Status: Never used Tobacco service: No Current occupational status: retired 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 Review of Systems Const Details: Const Denies body aches, Denies chills, Denies excessive sweating and Denies fatigue Eyes Denies blurry vision and Denies change in vision ENT Denies bleeding gums and Denies change in voice Card Denies chest pain and Denies leg ulcers Resp Denies cough and Denies excessive phlegm production GI Denies abdominal pain and Denies bloating Denies hematuria, Denies urinary frequency and Denies difficulty voiding Musc Denies abnormal gait Neuro Denies Neuro-related abnormal movements, Denies abnormal gait and Denies behavioral changes Psych Denies behavioral changes and Denies change in appetite Endo Denies change in body appearance, Denies cold intolerance, Denies excessive sweating and Denies fatigue Physical Exam Vital Signs: Last Vital Signs Pulse 76 12/29/24 11:36 BP 124/80 12/29/24 11:36 Pulse Ox 96 12/29/24 11:36 Oxygen Delivery Method Room Air 12/29/24 11:36 BMI result Body Mass Index 21.1 General: elderly lady very pleasant, comfortable, sitting on the chair Nutritional Appearance: okay nourished and under weight Eyes: appearance normal, both eyes and all related structures; Alignment and Position: alignment normal and position normal Neck: No lymphadenopathy, no thyromegaly Resp: bilateral air entry equal, no added sounds present Cardio: Regular rate, regular rhythm; Heart sounds: S1 normal heart sound present and S2 normal heart sound present, no edema GI: soft, nontender, no guarding, no hepatosplenomegaly : bladder normal to inspection, bladder normal to palpation, no renal angle tenderness Skin: no rashes or lesions noted and elasticity normal Neuro: oriented to person, oriented to place, oriented to time and moves all extremities Results Reviewed Nephrology Results: Hgb 13.1 g/dl (12.0-16.0) 11/30/24 WBC 6.8 X10*3/uL (4.8-10.8) 11/30/24 Plt Count 275 X10*3/uL (160-400) 11/30/24 Sodium 141 mmol/L (135-145) 11/30/24 Potassium 4.4 mmol/L (3.3-5.1) 11/30/24 Chloride 105 mmol/L (96-108) 11/30/24 Carbon Dioxide 28 mmol/L (22-29) 11/30/24 BUN 28 mg/dL (9-16) H 11/30/24 Creatinine 1.06 mg/dL (0.5-1.4) 11/30/24 Calcium 9.4 mg/dL (8.4-10.2) 11/30/24 Urine Protein Negative mg/dL (Neg-Trace) 11/25/23 Urine Creatinine 63.24 mg/dL 11/25/23 Assessment & Plan Assessment & Plan (1) Chronic kidney disease: Code(s): N18.9 - Chronic kidney disease, unspecified Category: Medical Plan: Stage III a A2: BUN 28, creatinine 1.06 and GFR of 50 at the age 84. Urinalysis normal, UACR are 45.8 Would hold off on further workup as we gradually lose GFR with age Avoid NSAIDs, good blood pressure control to prevent further loss and GFR. Explained her to buy a blood pressure machine at store and keep a log of blood pressures. Continue lisinopril 5 mg- history of drop in BP with higher doses complains of black colored material in urine, will get urinalysis to check for infection (2) HTN (hypertension): Code(s): I10 - Essential (primary) hypertension Category: Medical Qualifiers: Hypertension type: primary hypertension Qualified Code(s): I10 - Essential (primary) hypertension Plan: Blood pressure is 124/ 82 this morning we dont have a blood pressure reading at home to increase dose of lisinopril. Asked Nicky to buy a BP machine and check blood pressure at home Orders: Orders UA and rflx microscopic Today I10 - Essential (primary) hypertension, N18.9 - Chronic kidney disease, unspecified Microalbumin, Random (w Creat) 6 Months N18.9 - Chronic kidney disease, unspecified Basic Metabolic Panel 6 Months N18.9 - Chronic kidney disease, unspecified Total Protein Urine Random 6 Months N18.9 - Chronic kidney disease, unspecified Creatinine Urine 6 Months N18.9 - Chronic kidney disease, unspecified Coding Level of Care Code New Pt Level 4 (46837) Diagnoses Chronic kidney disease N18.9 Primary hypertension I10 Hypertension type: primary hypertension
[2024-12-29 11:36] VITALS: BP 124/80; PULSE 76; O2SAT 96; BMI 21.1
--- OUTSIDE RECORDS SUMMARY | 2024-12-29 13:11 | XMS_ITS | Patient Health Record ---
Author Organization Cole Becker MD Address [address] [place] [phone] Care Team Providers Care Geomagnetist Name Role Phone Cole Becker Primary Care Provider Allergies No Known Allergies Results Component Value Reference Range Notes Liver Panel Reviewed date:05/27/2024 12:30:41 PM Interpretation: Performing Lab:[facility], [address] [place] [phone] Notes/Report: Bilirubin Total 0.5 0.0-1.0 mg/dL Bilirubin Direct 0.2 0.0-0.5 mg/dL Aspartate Amino Transferase 30 5-31 U/L Alanine Aminotransferase 15 0-31 U/L Total Protein 7.0 6.5-8.0 g/dL Albumin Level 4.1 3.5-5.0 g/dL Alkaline Phosphatase 76 39-117 U/L Glucose Fasting Reviewed date:05/27/2024 12:42:22 PM Interpretation: Performing Lab:[facility], [address] [place] [phone] Notes/Report: Glucose Fasting 90 60-99 mg/dL Hemoglobin A1c Reviewed date:05/27/2024 12:39:50 PM Interpretation: Performing Lab:[facility], [address] [place] [phone] Notes/Report: Hemoglobin A1c % 5.6 <6.0 % [...] average glucose, using the formula of the K6K-Uzvenkp Average Glucose study (ADAG), Diabetes Care, Vol.31,#8, 2007 Complete Blood Count Auto Di ff Reviewed date:11/30/2024 01:28:19 PM Interpretation: Performing Lab:[facility], [address] [place] [phone] Notes/Report: White Blood Count 6.8 4.8-10.8 X10*3/uL Red Blood Count 4.69 4.20-5.50 X10*6/uL Hemoglobin 13.1 12.0-16.0 g/dl Hematocrit 41.4 37.0-47.0 % Mean Corpuscular Volume 88.3 80.0-98.0 fL Mean Corpuscular Hemoglobin 27.9 27.0-33.0 pg Mean Corpuscular HGB Conc 31.6 31.0-35.0 g/dl Red Cell Distribution Width 13.8 11.0-16.0 % Platelet Count 275 160-400 X10*3/uL Mean Platelet Volume 10.8 9.4-12.3 fL Neutrophils Percent Auto 54.4 45-73 % Imm Gran Pct Auto 0.3 0.0-0.4 % Lymphocytes Percent Auto 35.0 20-40 % Monocytes Percent Auto 7.4 2-11 % Eosinophils Percent Auto 2.2 0-4 % Basophils Percent Auto 0.7 0-2 % NRBC Pct Auto 0.0 0.0-0.2 /100WBC Neutrophils Absolute Auto 3.7 2.0-8.3 x10*3/uL Imm Gran Abs Auto 0.02 0.00-0.03 X10*3/uL Lymphocytes Absolute Auto 2.4 1.2-4.9 X10*3/uL Monocytes Absolute Auto 0.5 0.1-1.2 X10*3/uL Eosinophils Absolute Auto 0.2 0.0-0.4 X10*3/uL Basophils Absolute Auto 0.1 0.0-0.2 X10*3/uL NRBC Abs Auto 0.000 0.0-0.012 X10*3/uL Comprehensive [place]. Panel Fa st Reviewed date:12/01/2024 07:01:56 PM Interpretation: Performing Lab:[facility], [address] [place] [phone] Notes/Report: Sodium 141 135-145 mmol/L Potassium 4.4 3.3-5.1 mmol/L Chloride 105 96-108 mmol/L Carbon Dioxide 28 22-29 mmol/L Anion Gap 12 12-20 Blood Urea Nitrogen 28 9-16 mg/dL Creatinine 1.06 0.5-1.4 mg/dL Estimated Glomerular Filt Rate 50 Chronic Kidney Disease: Estimated GFR < 60 mL/min/1.73m2 Severe Kidney Disease: Estimated GFR < 15 mL/min/1.73m2 Glucose Fasting 106 60-99 mg/dL A fasting glucose from 100-125 mg/dl is considered impaired (pre-diabetes). Calcium 9.4 8.4-10.2 mg/dL Bilirubin Total 0.4 0.0-1.0 mg/dL Aspartate Amino Transferase 29 5-31 U/L Alanine Aminotransferase 9 0-31 U/L Total Protein 7.0 6.5-8.0 g/dL Albumin Level 4.1 3.5-5.0 g/dL Alkaline Phosphatase 64 39-117 U/L Lipid Panel Reviewed date:12/07/2024 12:44:05 PM Interpretation:12-07-24 Performing Lab:[facility], [address] [place] [phone] Notes/Report: Triglycerides 134 <150 mg/dL Desirable Triglyceride: less than 150 mg/dL Borderline High Triglyceride 150-199 mg/dL High Triglyceride: 200-499 mg/dL Very High Triglyceride: greater than or equal to 5OO mg/dL Cholesterol 273 <200 mg/dL Desirable Cholesterol: less than 200 mg/dL Borderline High Cholesterol: 200-239 mg/dL High Cholesterol: greater than 239 mg/dL LDL Cholesterol Calculated 192 <100 mg/dL Desirable LDL: less than 100 mg/dL Near Optimal/Above Optimal LDL: 110-129 mg/dL Borderline High LDL: 130-159 mg/dL High LDL: 160-189 mg/dL Very High LDL: greater than or equal to 190 mg/dL HDL Cholesterol 55 >40 mg/dL Desirable HDL: greater than 40 mg/dL Note: This HDL assay may give artificially low results in patients with liver disease. Vitamin D 25-OH Total Reviewed date:11/30/2024 08:18:19 PM Interpretation: Performing Lab:[facility], [address] [place] [phone] Notes/Report: Vitamin D 25-OH Total 68.2 >30 ng/mL Health Based Reference Values* < 20 ng/mL Deficient 20-30 ng/mL Insufficient > 30 ng/mL Sufficient *Nikki ALMANZAR. N Engl J Med. 2007;357:266-280 There is no well-established upper level of normal vitamin D levels. Some laboratories use 50 ng/mL as an upper limit of normal. However, toxicity is patient-dependent and may occur at any level. Careful correlation with the patient's presentation is necessary and, if there is concern for vitamin D toxicity, treatment should be considered irrespective of the serum level. Care must be taken in interpreting Vitamin [...] confirmed with another method such as LC-MS/MS. Hemoglobin A1c Reviewed date:11/30/2024 01:26:56 PM Interpretation: Performing Lab:[facility], [address] [place] [phone] Notes/Report: Hemoglobin A1c % 5.7 <6.0 % Hemoglobin A1C Reference Range Adults: 4.8 - 6.0 % Non diabetic: < 6.0 % Goal: < 7.0 % Additional Action Suggested: > 8.0 % Note: Hemoglobin A1c results are invalid for patients with abnormal amounts of HbF. Blood transfusions may impact the HbA1c concentration in the patient sample. Estimated Average Glucose 117 eAG = Estimated average glucose which is %A1C expressed as average glucose, using the formula of the V6X-Dypoact Average Glucose study (ADAG), Diabetes Care, Vol.31,#8, Feb. 2007 Lipid Panel Reviewed date:05/27/2024 12:29:41 PM Interpretation: Performing Lab:[facility], [address] [place] [phone] Notes/Report: Triglycerides 93 <150 mg/dL Desirable Triglyceride: [...] Roldan Reviewed date:05/27/2024 12:28:39 PM Interpretation: Performing Lab:[facility], [address] [place] [phone] Notes/Report: Terri Roldan See Note Specimen held untested for 24 hours; Call to request Chemistry testing. XR lumbar spine 2-3V Reviewed date:09/03/2024 05:02:31 PM Interpretation: Performing Lab: Notes/Report: [address] [place] [address] XRay Report Signed Patient: Nicky Cifuentes MR#: [id number] : 1940 Acct:[id number] Age/Sex: 83 / F ADM Date: 09/03/24 Loc: HO.ED Attending Dr: Ordering Physician: Sayra Purcell NP Date of Service: 09/03/24 Procedure(s): XR lumbar spine 2-3V Accession Number(s): [id number] cc: Cole Becker MD; Sayra Purcell NP [...] by: Ignacio Ramires MD 09/03/2024 01:53 PM [facility] Dictated By: Ignacio Ramires MD Signed By: <Electronically signed by Ignacio Ramires MD in [place]> 09/03/24 1353 DD/ 1313 TD/TT: 09/03/24 1345 Bus Starter: [address] [id number] XRay Report Signed Patient: Araceli Cifuentes MR#: [id number] : 1940 Acct:[id number] Age/Sex: 83 / F ADM Date: 09/03/24 Loc: .ED Attending Dr: Ordering Physician: Sayra Purcell NP Date of Service: 09/03/24 Procedure(s): XR lum bar spine 2-3V Accession Number(s): [id number] cc: Cole Becker MD; Sayra Purcell NP [...] by: Ignacio Ramires MD 09/03/2024 01:53 PM [facility] Dictated By: Ignacio Ramires MD Signed By: <Electronically signed by Ignacio Ramires MD in OV> 09/03/24 1353 DD/ 1313 TD/TT: 09/03/24 1345 Bus Starter: Terri Roldan Reviewed date:11/30/2024 01:26:27 PM Interpretation: Performing Lab:[facility], [address] [place] [phone] Notes/Report: Terri Roldan See Note Specimen held untested for 24 hours; Call to request Chemistry testing. Reason For Referral Reason Elevated BUN Diagnosis 1 Elevated BUN (R79.9) Referral Organization Cole Becker MD Referring Provider First Name Cole Referring Provider Last Name Eugenio Referring Provider Speciality Internal M edicine Referred Provider Johan Melara Referred Provider Specialty Nephrology General Notes Leida Dunne 0 12/17/2024 07:40:53 AM >info faxed, Leida Dunne 12/20/2024 02:08:15 PM >referral being worked on, Leida Dunne 12/24/2024 01:09:22 PM > called patient with appt info Referral Priority Routine Referral Appointment Date 12/29/2024 Medications Medication SIG (Take, Route, Frequency, Duration) Notes Start Date End Date Status Cyclobenzaprine HCl 5 MG 1 tablet as nee ded Orally two times per day for 10 days 10/26/2018 Not-Taking Multi Vitamin/Minerals as directed Orally Not-Taking Vitamin D-3 1000 UNIT 1 capsule Orally O nce a day for 30 day(s) 08/23/2017 Not-Taking Ambien 5 MG 1 tablet at bedtime Orally Once a day as needed for 10 days 03/16/2021 Not-Taking Ibuprofen 200 MG 1 tablet with food o r milk as needed Orally Three times a day Not-Taking Aspirin Low Dose 81 MG TAKE 1 TABLET BY MOUTH EVERY DAY for 90 Not-Taking Atorvastatin Calcium 40 MG TAKE 1 TABLET BY MOUTH EVERY DAY Orally Once a day for 90 days Not-Taking Lisinopril 5 MG TAKE 1 TABLET BY MOUTH EVERY DAY for 90 Not-Taking Ibuprofen 600 MG 1 tablet with food o r milk as needed Orally Three times a day for 30 days 06/09/2023 Not-Taking Immunizations Vaccine Route Administration Date Status Comme nts Flu Vaccine IM Intramuscular 04/02/2011 Administered Flu Vaccine IM Intramuscular 04/06/2012 Administered Shingles IM Intramuscular 06/16/2012 Administered PPSV23 (Pnemovax) IM Intramuscular 05/26/2012 Administered Flu Vaccine IM Intramuscular 05/17/2013 Administered Flu Vaccine Unknown 04/25/2014 Administered [facility] Prevnar 13 IM Intramuscular 06/20/2014 Administered Flu Vaccine IM Intramuscular 04/19/2015 Administered pt re cieved the high dose flu at the [facility] in [place] Fluarix Quadrivalent IM Intramuscular 04/12/2016 Administered zFluzone Quadrivalent Unknown 03/25/2017 Administered [facility] PPSV23 (Pnemovax) IM Intramuscular 08/22/2017 Administered Flu Vaccine IM Intramuscular 04/06/2018 Administered pt wa s given the high dose flu vaccine at [facility]. Influenza High Dose IM Intramuscular 04/19/2019 Administer ed pt had the vaccine at [facility] [place] Influenza High Dose IM Intramuscular 03/24/2020 Administer [...] Problem Status W/U Status Risk Notes Problem 37822971 Vitamin D deficiency (E55.9) Active confirmed Problem 075922039 Diverticulitis (K57.92) Active confirmed Problem 1225529 Primary insomnia (F51.01) Active confirmed Problem 78323544 Irritable bowel syndrome without diarrhea (K58.9) Active confirmed Problem 98688669 Vitiligo (L80) Active confirmed Problem 082354286 Lumbar disc dise ase (M51.9) Active confirmed Problem 335727635 Osteopenia (M85.80) Active confirmed Problem 35076335 Essential hypertension (I10) Active confirmed Problem 3198419 Prediabetes (R73.09) Active confirmed Problem 71783336 Other iron deficiency anemia (D50.8) Active confirmed Problem 31497418 Costochondritis (M94.0) Active confirmed Problem 210738813 Abnormal mammogr am (R92.8) Active confirmed Problem 845252849 Panic attacks (F41.0) Active confirmed Problem 75967547 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) Active confirmed Problem 79910655 Sciatica of righ t side (M54.31) Active confirmed Problem 299951755 Elevated LDL cholesterol level (E78.00) Active confirmed Problem 567260358 MCI (mild cognit andrew impairment) (G31.84) Active confirmed Vital Signs Blood pressure diastolic 70 mm Hg 12/07/2024 Height 65.5 in 12/07/2024 Blood pressure systolic 122 mm Hg 12/07/2024 Weight 123 lbs 12/07/2024 BMI 20.15 kg/m2 12/07/2024 Encounters Encounter Location Date Provider Diagnosis Cole Becker MD [address] [phone] 05/27/2024 Cole Becker Prediabetes R73.09 and Elevated LDL cholesterol level E78.00 Cole Becker MD [address] [place] [phone] 11/30/2024 Cole Becker Blood tests for routine general physical examination Z00.00 ; Prediabetes R73.09 ; Essential hypertension I10 ; Vitamin D deficiency E55.9 and Elevated LDL cholesterol level E78.00 Cole Becker MD [address] [id number] 06/04/2024 Cole Becker Essential hypertension I10 ; Elevated LDL cholesterol level E78.00 ; Lumbar disc disease M51.9 and Prediabetes R73.09 Cole Becker MD [address] [place] [phone] 09/13/2024 Cole Becker UTI (urinary tract infection) N39.0 ; Near syncope R55 and Lumbar disc disease M51.9 Cole Becker MD [address] [place] [phone] 12/07/2024 Cole Becker Annual physical exam Z00.00 ; Elevated LDL cholesterol level E78.00 ; Essential hypertension I10 ; Prediabetes R73.09 and Elevated BUN R79.9 Cole Becker MD [address] [place] [phone] 09/05/2024 Cole Becker Assessments Encounter Date Diagnosis (ICD Code) Assessment Notes Treatment Notes Treatment Clinical Notes Section Notes 05/27/2024 Prediabetes (ICD-10 - R73.09) 05/27/2024 Elevated LDL cholesterol level (ICD-10 - E78.00) 11/30/2024 Blood tests for routine general physical examination (ICD-10 - Z00.00) 06/04/2024 Essential hypertension (ICD-10 - I10) blood [...] it was probaly related to the pain 12/07/2024 Annual physical exam (ICD-10 - Z00.00) 12/07/2024 Elevated LDL cholesterol level (ICD-10 - E78.00) is going to go back on atorvastain 11/30/2024 Prediabetes (ICD-10 - R73.09) 06/04/2024 Lumbar disc disease (ICD-10 - M51.9) i think that was the cause of the pain that she went to the er for. will observe 09/13/2024 Lumbar disc disease (ICD-10 - M51.9) most of the pain seems to be from this but has resolved 12/07/2024 Essential hypertension (ICD-10 - I10) doing well off the medicine 11/30/2024 Essential hypertension (ICD-10 - I10) 06/04/2024 Prediabetes (ICD-10 - R73.09) stable, no need for medication at this time 12/07/2024 Prediabetes (ICD-10 - R73.09) doing well with good 11/30/2024 Vitamin D deficiency (ICD-10 - E55.9) 12/07/2024 Elevated BUN (ICD-10 - R79.9) referral to nephrology 11/30/2024 Elevated LDL cholesterol level (ICD-10 - E78.00) 12/07/2024 Other because of the history of tia needs to go back on asa Plan Of Treatment Pending Test Test Name Order Date Electrocardiogram (EKG) 09/10/2018 Electrocardiogram (EKG) 08/22/2017 MRI LUMBAR SPINE NO CONTRAST 02/06/2021 XR CHEST 2 VIEW PA & LAT 06/20/2014 BONE DENSITY DEXA 08/03/2020 Microalbumin, Random 11/30/2024 ECG 30 day event monitor 06/09/2023 XR chest 2V 10/26/2021 UA ClnCatch+Micro w/rflx Cult 11/30/2024 Next Appt Details Provider Name:Cole rivera, 06/09/2025 08:00:00 AM, [address] [place] [address], [address], [place], [place], [phone], Provider Name:Cole Rodriguez ier, 06/13/2025 01:30:00 PM, [address], [address], [place], [phone], Provider Name:Cole Rodriguez ier, 12/01/2025 08:00:00 AM, [address], [address], [place], [phone], Provider Name:Cole Rodriguez ier, 12/08/2025 01:00:00 PM, [address], [address], [place], [phone], Insurance Providers Payer Name Payer Address Payer Phone Subscriber Number Group Number Insured Name Patient Relationship to Insured Coverage Start Date Coverage End Date [facility] [employer] [address] [address] [place] [address] [id number] Nicky Cifuentes Self - patient is the insured 4 Medical (General) History Medical History History ICD Code colonoscopy 02/07/2009 due in 2019; colonoscopy booked for 04/13/[address] Fisher Surgical History Surgery Date(Month/Year) LT Hand Mass Excisional Biop sy and LT Middle Finger flexor tenosynovectomy 11/2020
== END 2024-12-29 12:06 | disposition home or self-care (01) ==
LOC: HO.HKA 11:27
PROVIDERS: PCP Internal Medicine; Referring Provider Internal Medicine; Visit Provider Internal Medicine Critical Care Medicine
DX: I12.9 Hypertensive chronic kidney disease with stage 1 through stage 4 chronic kidney disease, or unspecified chronic kidney disease (principal); N18.9 Chronic kidney disease, unspecified
CPT/HCPCS: 99204

== ENCOUNTER 2024-12-29 11:27 | Outpatient (REF) | payer MEDICARE, SELFPAY | END 2024-12-29 11:28 | disposition home or self-care (01) | LOC: HO.LAB 11:27 | PROVIDERS: PCP Internal Medicine; Referring Provider Internal Medicine; Visit Provider Internal Medicine Critical Care Medicine | DX: I12.9 Hypertensive chronic kidney disease with stage 1 through stage 4 chronic kidney disease, or unspecified chronic kidney disease (principal); N18.31 Chronic kidney disease, stage 3a; R82.90 Unspecified abnormal findings in urine | CPT/HCPCS: 87086; 99202 ==

== ENCOUNTER 2024-12-29 12:53 | Outpatient (REF) | payer MEDICARE, SELFPAY ==
[2024-12-29 13:32] LABS: Appearance Urine Clear; Color Urine Yellow; Glucose Urine UA Negative (Negative); Leukocyte Esterase Urine Large (3+) (Negative); Nitrite Urine Negative (Negative); PH 5.5 (5.0-9.0); Specific Gravity - Urine 1.015 (1.005-1.025); UMIC TRIGGER UA YES; Urine Blood Negative (Negative); Urine Ketones Negative (Negative); Urine Protein 30 (1+) mg/dL (Neg-Trace)
[2024-12-29 13:35] LABS: Bacteria Urine None Seen (None Seen); Hyaline Casts Urine 0-2 /LPF (0-2); RBC Urine 0-2 /HPF (0-2); Squamous Epithelial Cell Urine 0-2 /HPF (0-2); WBC Urine 21-50 /HPF (0-5)
== END 2024-12-29 12:54 | disposition home or self-care (01) ==
LOC: HO.10HDLNP 12:53
PROVIDERS: Visit Provider Internal Medicine Critical Care Medicine
DX: I10 Essential (primary) hypertension (principal); N18.9 Chronic kidney disease, unspecified
CPT/HCPCS: 81001

== ENCOUNTER 2025-06-09 12:46 | Outpatient (REF) | payer MEDICARE, SELFPAY ==
[2025-06-09 13:26] LABS: Alanine Aminotransferase 14 U/L (0-31); Albumin Level 4.5 g/dL (3.5-5.0); Alkaline Phosphatase 70 U/L (39-117); Aspartate Amino Transferase 31 U/L (5-31); Blood Urea Nitrogen 28 mg/dL (9-16); Cholesterol 264 mg/dL (<200); Estimated Glomerular Filt Rate 49; HDL Cholesterol 59 mg/dL (>40); Total Protein 7.4 g/dL (6.5-8.0); Triglycerides 103 mg/dL (<150)
== END 2025-06-09 12:47 | disposition home or self-care (01) ==
LOC: HO.LNP 12:46
PROVIDERS: Visit Provider Internal Medicine
DX: Z00.00 Encounter for general adult medical examination without abnormal findings (principal); Z13.6 Encounter for screening for cardiovascular disorders
CPT/HCPCS: 80061; 80076; 82565; 84520